=== PATIENT | male | born 1965 ===

== ENCOUNTER 2021-01-30 13:49 | Emergency (ER) | payer MEDICARE, MEDICAID, SELFPAY ==
--- NOTE | ~2021-01-30 | XR_ITS ---
EXAMINATION: XR KNEE, RIGHT CLINICAL INFORMATION: Fall COMPARISON: None TECHNIQUE: Four views of the right knee. FINDINGS: There is no visible acute fracture, dislocation or subluxation. There is small anterior superior patella and calcified and suprapatellar spur. No abnormal joint effusion or loose body seen. The soft tissues are normal XR/XR knee RT 4V IMPRESSION: Mild degenerative superior patellar spurring and anterior superior patellar enthesophyte. No visible acute fracture or loose body seen.
[2021-01-30 13:58] VITALS: BP 146/92; PULSE 91; RESP 18; TEMP 36.8; O2SAT 100; BMI 37.4
[2021-01-30 14:16] VITALS: BP 152/94; PULSE 88; RESP 16; O2SAT 95
--- NOTE | 2021-01-30 14:39 | ED_ITS ---
HPI - General Adult General Chief complaint: Extremity Injury, Lower Stated complaint: FALL Time Seen by Provider: 01/30/21 14:39 Source: patient Limitations: language barrier History of Present Illness HPI narrative: Patient complaining of right knee pain. Patient states he has longstanding history of chronic pain which he is on Percocet for. Patient describes the pain as aching and feels his joint is weak. Pain is 6/10 pain is located in the medial lateral aspects of the right knee. Patient states he fell onto his right knee after tripping. No other complaints at this time. Related Data Allergies Allergy/AdvReac Type Severity Reaction Status Date / Time No Known Allergies Allergy Unverified 06/13/20 18:24 [No Known Allergies*] none Allergy Unknown Uncoded 09/12/19 00:00 Review of Systems Review of Systems: Constitutional : No Weight loss, No Fever Cardiovascular : No Chest Pain, No SOB, No Dyspnea Respiratory : No Cough, No Sputum, No Wheezing Gastrointestinal : No Nausea, No Vomiting, No Diarrhea Musculoskeletal : Right knee pain Neuro : No Weakness, No Numbness, No Paresthesias Heme/Lymph: No Bruising, No Bleeding,No Lymphadenopathy PMFSH Past Medical History Attestation statement: The following information was validated with the patient. Medical History Diabetes Neuropathy Social History Social History Advance Directives: Yes Advance Directives Information Provided: Yes Advance Directives on File: No Physical Exam Vital Signs: Vital Signs: Last Vital Signs Temp 98.3 F 01/30/21 13:58 Pulse 88 01/30/21 14:16 Resp 16 01/30/21 14:16 BP 152/94 H 01/30/21 14:16 Pulse Ox 95 01/30/21 14:16 Body Mass Index 37.4 vital signs have been reviewed as normal and appeared to be correct. Blood pressure normal. Heart rate normal. Respiration rate normal. Temperature normal. Oxygen saturation normal. Appearance: Alert. Oriented X3. No acute distress. Head: Normal external exam. Normocephalic. Atraumatic. Eyes: PERRLA. EOMI. ENT: Pharynx normal. Neck: Soft full range of motion, no JVD CVS: Heart regular rate and rhythm no murmurs and rubs Respiratory: Breath sounds are clear to auscultation bilaterally. No accessory muscle use noted. Skin: Skin warm and dry. Normal skin color. Normal skin turgor. No rashes/lesions/lacerations noted. Extremities: Right knee positive medial and lateral joint line tenderness patellar has some slight tenderness. Negative drawer test no obvious joint laxity noted patient states he feels the knee is weak. Neuro: Oriented X 3. No motor deficit. No sensory deficit. Reflexes normal. Course Course Course Narrative: X-ray right knee after a fall. X-ray shows some degenerative disease around the patella. Patient's complaints are more consistent with question ligamentous injury although the joint does not appear ill very lax on exam will put patient in immobilizer and follow-up with orthopedics at this time. Medical Decision Making Imaging Data knee: Radiologist's impression: [address] [id number] ReportSigned Patient: Calvin ClarkMR#: [id number]: 1965Acct:[id number]/Sex: 55 / MADM Date: 01/30/21Loc: HO.EDAttending Dr: Ordering Physician: Generic ED Physician Date of Service: 01/30/21 Procedure(s): XR knee RT 4V Accession Number(s): [id number] cc: Generic ED Physician~ EXAMINATION: XR KNEE, RIGHT CLINICAL INFORMATION: Fall COMPARISON: None TECHNIQUE: Four views of the right knee. FINDINGS: There is no visible acute fracture, dislocation or subluxation. There is small anterior superior patella and calcified and suprapatellar spur. No abnormal joint effusion or loose body seen. The soft tissues are normal XR/XR knee RT 4V IMPRESSION: Mild degenerative superior patellar spurring and anterior superior patellar enthesophyte. No visible acute fracture or loose body seen. Dictated By:TAHIR CANTRELL MDSigned By:<Electronically signed by TAHIR CANTRELL MD in [place]>01/30/21 1413 DD/ 1405 Discharge Plan Discharge Clinical Impression: Knee sprain, Contusion of knee Patient Disposition: Home, Self-Care Instructions: Knee Sprain (ED) Additional Instructions: Follow-up with orthopedics as recommended rest ice elevation of that right knee. Continue your current medications at home for pain. Referrals: Jerson Shaikh MD [Physician] - 2 days
== END 2021-01-30 15:03 | disposition home or self-care (01) ==
PROVIDERS: Emergency Provider Emergency Medicine; PCP Internal Medicine Geriatric Medicine
DX: S83.91XA Sprain of unspecified site of right knee, initial encounter (principal); S80.01XA Contusion of right knee, initial encounter; M25.561 Pain in right knee; W01.0XXA Fall on same level from slipping, tripping and stumbling without subsequent striking against object, initial encounter; Y93.89 Activity, other specified; Y92.89 Other specified places as the place of occurrence of the external cause; Y99.8 Other external cause status; Z79.899 Other long term (current) drug therapy
CPT/HCPCS: 73564; 99283

== ENCOUNTER 2021-02-06 07:59 | Outpatient (REF) | payer MEDICARE, MEDICAID, SELFPAY | END 2021-02-06 08:00 | disposition home or self-care (01) | LOC: HO.HOSX 07:59 | PROVIDERS: Visit Provider Physician Assistant | DX: Z13.89 Encounter for screening for other disorder (principal) ==

== ENCOUNTER 2022-12-06 18:19 | Emergency (ER) | payer MEDICARE, MEDICAID, SELFPAY ==
--- NOTE | ~2022-12-06 | XR_ITS ---
Examination: XR lumbar spine 2-3V, XR hip RT w PEL1V, XR knee RT 4V Indication: Reason for Exam pain s/p fall Comparison: No pertinent prior studies are currently available for comparison. Technique: 3 views the lumbosacral spine, frontal view of the pelvis with coned frontal and frog-leg lateral views the right hip, 4 views of the right knee Findings: Lumbosacral spine: There are 5 nonrib-bearing lumbar-type vertebra. Bones are normal anatomic alignment with no acute fracture or dislocation. Mild sclerotic degenerative changes in the posterior elements of the lower lumbar spine. Unremarkable bowel gas pattern. Right pelvis: The lungs are normal anatomic alignment with no acute fracture or dislocation seen. Mildly elongated femoral head/neck junctions incidentally seen. Pelvic bones otherwise unremarkable. Unremarkable bowel gas pattern. Right knee: No significant joint effusion. Bones are normal anatomic alignment with no acute fracture or dislocation. No bony destructive lesions or periosteal reaction. XR/XR lumbar spine 2-3V Impression: Mild degenerative changes but no acute fracture or dislocation seen.
--- NOTE | ~2022-12-06 | XR_ITS ---
Examination: XR lumbar spine 2-3V, XR hip RT w PEL1V, XR knee RT 4V Indication: Reason for Exam pain s/p fall Comparison: No pertinent prior studies are currently available for comparison. Technique: 3 views the lumbosacral spine, frontal view of the pelvis with coned frontal and frog-leg lateral views the right hip, 4 views of the right knee Findings: Lumbosacral spine: There are 5 nonrib-bearing lumbar-type vertebra. Bones are normal anatomic alignment with no acute fracture or dislocation. Mild sclerotic degenerative changes in the posterior elements of the lower lumbar spine. Unremarkable bowel gas pattern. Right pelvis: The lungs are normal anatomic alignment with no acute fracture or dislocation seen. Mildly elongated femoral head/neck junctions incidentally seen. Pelvic bones otherwise unremarkable. Unremarkable bowel gas pattern. Right knee: No significant joint effusion. Bones are normal anatomic alignment with no acute fracture or dislocation. No bony destructive lesions or periosteal reaction. XR/XR knee RT 4V Impression: Mild degenerative changes but no acute fracture or dislocation seen.
--- NOTE | ~2022-12-06 | XR_ITS ---
Examination: XR lumbar spine 2-3V, XR hip RT w PEL1V, XR knee RT 4V Indication: Reason for Exam pain s/p fall Comparison: No pertinent prior studies are currently available for comparison. Technique: 3 views the lumbosacral spine, frontal view of the pelvis with coned frontal and frog-leg lateral views the right hip, 4 views of the right knee Findings: Lumbosacral spine: There are 5 nonrib-bearing lumbar-type vertebra. Bones are normal anatomic alignment with no acute fracture or dislocation. Mild sclerotic degenerative changes in the posterior elements of the lower lumbar spine. Unremarkable bowel gas pattern. Right pelvis: The lungs are normal anatomic alignment with no acute fracture or dislocation seen. Mildly elongated femoral head/neck junctions incidentally seen. Pelvic bones otherwise unremarkable. Unremarkable bowel gas pattern. Right knee: No significant joint effusion. Bones are normal anatomic alignment with no acute fracture or dislocation. No bony destructive lesions or periosteal reaction. XR/XR hip RT w PEL1V Impression: Mild degenerative changes but no acute fracture or dislocation seen.
[2022-12-06 18:22] VITALS: BP 138/74; PULSE 104; RESP 18; TEMP 36.1; O2SAT 96; BMI 34.6
--- NOTE | 2022-12-06 18:22 | ED_ITS ---
HPI - Extremity Problem General Chief complaint: Extremity Problem <CHERRI Green - Last Filed: 12/06/22 18:31> Stated complaint: R leg pain <CHERRI Green - Last Filed: 12/06/22 18:31> Time Seen by Provider: 12/06/22 19:01 <CHERRI Green Last Filed: 12/06/22 18:31> Source: patient <CHERRI Mathis Last Filed: 12/06/22 20:09> Mode of arrival: ambulatory <CHERRI Mathis Last Filed: 12/06/22 20:09> Limitations: no limitations <CHERRI Mathis Last Filed: 12/06/22 20:09> History of Present Illness HPI Narrative: This is a 57-year-old male presenting to the emergency department for atraumatic right-sided back pain that radiates down his right leg above the right knee x2 days. Patient tells me he has chronic back pain however this feels slightly different, he tells me he has an achy pain, he tells me pain is worse with movement better at rest. He tells me at time pain is intolerable. Patient uses a cane for comfort. Patient tells me that his right knee is also bothering him at times again worse with movement better at rest. Patient denies blunt trauma. Patient does tell me that a few weeks ago he did sustain a fall however after his fall he did not notice any injuries, he did not hit his head o r lose consciousness. Patient denies fevers, chills, chest pain, shortness of breath, nausea, vomiting, weakness, headache, vision changes, numbness or tingling. <CHERRI Mathis Last Filed: 12/06/22 20:09> Related Data Home medications: Previous Rx's Medication Instructions Recorded lidocaine 5 % topical patch 1 patch topical DAILY PRN pain #15 12/06/22 ea prednisone 20 mg tablet 20 mg PO DAILY 5 days #5 tabs 12/06/22 tramadol 50 mg tablet 50 mg PO BID PRN pain #10 tabs 12/06/22 <CHERRI Green Last Filed: 12/06/22 18:31> Allergies/Adverse reactions: Allergies Allergy/AdvReac Type Severity Reaction Status Date / Time No Known Allergies Allergy Unverified 06/13/20 18:24 [No Known Allergies*] none Allergy Unknown Uncoded 09/12/19 00:00 <CHERRI Green - Last Filed: 12/06/22 18:31> Review of Systems Review of Systems: Constitutional : No Weight loss, No Fever, No Chills, No Fatigue, No Malaise ENT/Mouth : No sore throat, No Rhinorrhea Eyes: No Eye Pain, No Swelling, No Redness Cardiovascular : No Chest Pain, No SOB, No Dyspnea on Exertion, No Orthopnea, No Edema, No Palpitations Respiratory : No Cough, No Sputum, No Wheezing Gastrointestinal : No Nausea, No Vomiting, No Diarrhea, No Constipation, No abdominal Pain, No Hematochezia, No Melena Genitourinary : No Dysuria, No Urinary Frequency, No Hematuria, Musculoskeletal : + joint pain, No Myalgias, No Joint Swelling Skin : No Skin Lesions, No rash Neuro : No Weakness, No Numbness, No Dizziness, No Headache Psych : No Anxiety/Panic, No Depression All other systems reviewed and are negative <CHERRI Mathis - Last Filed: 12/06/22 20:09> Yes all other systems are reviewed and are negative <CHERRI Mathis - Last Filed: 12/06/22 20:09> [facility] Past Medical History Attestation statement: The following information was validated with the patient. <CHERRI Mathis - Last Filed: 12/06/22 20:09> Source: old records reviewed and nursing notes reviewed <CHERRI Mathis - Last Filed: 12/06/22 20:09> Medical History: Medical History Diabetes Neuropathy <CHERRI Green - Last Filed: 12/06/22 18:31> Social History Social History: Social History Advance Directives: No Advance Directives Information Provided: Yes <CHERRI Green - Last Filed: 12/06/22 18:31> Physical Exam Vital Signs: Vital Signs: Last Vital Signs Temp 97.0 F 12/06/22 18:22 Pulse 104 H 12/06/22 18:22 Resp 18 12/06/22 18:22 BP 138/74 12/06/22 18:22 Pulse Ox 96 12/06/22 18:22 O2 Del Method 12/06/22 18:22 BMI result Body Mass Index 34.6 <CHERRI Green - Last Filed: 12/06/22 18:31> Vital Signs: Last Vital Signs Temp 97.0 F 12/06/22 18:22 Pulse 104 H 12/06/22 18:22 Resp 18 12/06/22 18:22 BP 138/74 12/06/22 18:22 Pulse Ox 96 12/06/22 18:22 O2 Del Method 12/06/22 18:22 BMI result Body Mass Index 34.6 vss <CHERRI Mathis - Last Filed: 12/06/22 20:09> Appearance: Alert.? Oriented X3.? No acute distress.? Head: Normocephalic, atraumatic, no step-offs or deformities Eyes: Pupils equal, round and reactive to light.? Neck: Normal inspection.? Neck supple.? CVS: Normal heart rate and rhythm.? Pulses normal.? Respiratory: No respiratory distress.? Breath sounds normal.? Abdomen: Soft and nontender.? Skin: Skin warm and dry.? Normal skin color.? Normal skin turgor.? Extremities: No lower extremity edema.? No calf ttp. 5/5 strength to bilateral upper and lower extremities Back: No midline tenderness in cervical, thoracic or lumbar region. There is tenderness to palpation to the right lumbar paraspinous muscles. Neuro: Oriented X 3.? No motor deficit.? No sensory deficit. CN 2-12 intact. Patient ambulating w/ steady gait normal coordination . No saddle paresthesias. <CHERRI Mathis - Last Filed: 12/06/22 20:09> Course Course Course Narrative: RME - 57 y/o male with history of chronic pain previously on chronic opiates and diabetes with neuropathy who presents to the ER for evaluation of burning right lower extremity pain that started 1.5 days ago. He also reports worsening right knee pain. Had multiple falls a few weeks ago. Has pain in the lumbar spine, right hip and right knee. Reports the previously prescribed gabapentin does not work. 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 Given his recent falls will get x-rays to r/o traumatic injuries. <CHERRI Green - Last Filed: 12/06/22 18:31> Reevaluation(s) Reevaluation #1: No acute findings on x-ray. No signs of fractures, dislocations. Patient ambulatory without difficulty in the department even before pain medicine. Tramadol for pain will be sent to the pharmacy. Will give Lidoderm patch as well and prednisone. Patient diabetic educated the prednisone can increase glucose levels, may have to adjust insulin levels. Patient verbalizes understanding. Educated patient on diagnosis and treatment plan, answered all question, patient verbalizes understanding. At this time patient will be discharged home, advised to return with new or worsening symptoms. Educated on worrisome signs and symptoms and when to return. At this time I feel comfortable discharge home. <CHERRI Mathis - Last Filed: 12/06/22 20:09> Time: 20:09 <CHERRI Mathis - Last Filed: 12/06/22 20:09> Medical Decision Making Medical Decision Making MDM Narrative: 1998 57-year-old male presents with right-sided back pain that radiates to right lower extremity just above the knee x2 days. Reports a fall 2 weeks ago however no recent falls. Denies saddle paresthesias, numbness, tingling, weakness, urinary/bowel incontinence/retention. Physical exam significant for tenderness to palpation to the right lumbar paraspinous muscles.? No motor deficit.? No sensory deficit. CN 2-12 intact. Patient ambulating w/ steady gait normal coordination . No saddle paresthesias. Likely acute on chronic back pain versus sciatica. I do not suspect cauda equina or epidural abscess. Unlikely compression fracture, no signs of cord compression or neurovascular compromise. Plan at this time imaging and will give tramadol for pain. <CHERRI Mathis - Last Filed: 12/06/22 20:09> Differential Diagnosis Differential Diagnoses: The differential diagnosis associated with the presentation includes <CHERRI Mathis Last Filed: 12/06/22 20:09> Likely acute on chronic back pain versus sciatica. I do not suspect cauda equina or epidural abscess. Unlikely compression fracture, no signs of cord compression or neurovascular compromise. <CHERRI Mathis - Last Filed: 12/06/22 20:09> Admission/Observation Consideration of admission/observation: Escalation of care including admission/observation considered <CHERRI Mathis - Last Filed: 12/06/22 20:09> Unlikely <CHERRI Mathis - Last Filed: 12/06/22 20:09> Lab Data MDM Lab Attestation statement: I reviewed the patient's lab results. <CHERRI Mathis - Last Filed: 12/06/22 20:09> Independent Interpretation I performed an independent interpretation of an: Plain X-Ray (Findings: Lumbosacral spine: There are 5 nonrib-bearing lumbar-type vertebra. Bones are normal anatomic alignment with no acute fracture or dislocation. Mild sclerotic degenerative changes in the posterior elements of the lower lumbar spine. Unremarkable bowel gas pattern. Right pelvis: The lungs a) <CHERRI Mathis - Last Filed: 12/06/22 20:09> Radiology Impression Discussion of test interpretation with radiology: I have reviewed the radiologist's reading. <CHERRI Mathis - Last Filed: 12/06/22 20:09> Core Measures AMI core measures followed: Yes <CHERRI Mathis - Last Filed: 12/06/22 20:09> Measure exclusions: not indicated <CHERRI Mathis - Last Filed: 12/06/22 20:09> Discharge Plan Discharge Clinical Impression: Sciatica, Lumbar paraspinal muscle spasm <CHERRI Green - Last Filed: 12/06/22 18:31> Patient Disposition: Home, Self-Care <CHERRI Green - Last Filed: 12/06/22 18:31> Instructions: Sciatica (ED), Back Pain (ED) <CHERRI Green - Last Filed: 12/06/22 18:31> Additional Instructions: Take your medications as prescribed. If you were prescribed antibiotics today, it is important that you take your medication to their entirety, do not skip any doses, do not finish them early. Follow-up with your primary care provider this week. Follow-up with [facility] Return to the emergency department with new or worsening symptoms. Such as fevers, chills, chest pain, shortness of breath, nausea, vomiting, dizziness, headache, vision changes, lethargy In case of emergency call 911 I did educate you that prednisone can increase blood glucose levels. Please adjust as necessary. A narcotic has been sent to your pharmacy please take this as prescribed. Do no t take more than the prescribed dose. Narcotic medications can cause addiction. Please do not mix them with alcohol. Do not take them while driving or operating machinery. Do not take them with any other narcotics. Do not share them with friends or family. They can cause constipation. Take them only for severe pain. XR/XR hip RT w PEL1V Impression: Mild degenerative changes but no acute fracture or dislocation seen. XR/XR knee RT 4V Impression: Mild degenerative changes but no acute fracture or dislocation seen. ?XR/XR lumbar spine 2-3V Impression: Mild degenerative changes but no acute fracture or dislocation seen. Findings: Lumbosacral spine: There are 5 nonrib-bearing lumbar-type vertebra. Bones are normal anatomic alignment with no acute fracture or dislocation. Mild sclerotic degenerative changes in the posterior elements of the lower lumbar spine. Unremarkable bowel gas pattern. Right pelvis: The lungs are normal anatomic alignment with no acute fracture or dislocation seen. Mildly elongated femoral head/neck junctions incidentally seen. Pelvic bones otherwise unremarkable. Unremarkable bowel gas pattern. Right knee: No significant joint effusion. Bones are normal anatomic alignment with no acute fracture or dislocation. No bony destructive lesions or periosteal reaction. <CHERRI Green - Last Filed: 12/06/22 18:31> Prescriptions: New tramadol 50 mg tablet 50 mg PO BID PRN (Reason: pain) Qty: 10 0RF prednisone 20 mg tablet 20 mg PO DAILY 5 Days Qty: 5 0RF lidocaine 5 % adhesive patch,medicated 1 patch topical DAILY PRN (Reason: pain) Qty: 15 0RF Rx Instructions: leave on most painful area for up to 12 hrs <CHERRI Green - Last Filed: 12/06/22 18:31> Referrals: [facility] [Provider Group] - 2 days Name,MD Paxton [Primary Care Provider] - 2 days <CHERRI Green - Last Filed: 12/06/22 18:31>
[2022-12-06] MEDS: Lidocaine 4 % Patch ADH..PATCH 1 PATCH TRANSDERMA (20:17)
[2022-12-06] MEDS: traMADoL HCL 50 MG TABLET PO (20:18)
== END 2022-12-06 20:29 | disposition home or self-care (01) ==
PROVIDERS: Emergency Provider Emergency Medicine; PCP Internal Medicine Geriatric Medicine
DX: M54.41 Lumbago with sciatica, right side (principal); M79.604 Pain in right leg; R10.2 Pelvic and perineal pain; Z79.899 Other long term (current) drug therapy
CPT/HCPCS: 72100; 73502; 73564; 99283

== ENCOUNTER 2023-02-11 15:13 | Emergency (ER) | payer MEDICARE, MEDICAID, SELFPAY | END 2023-02-11 15:49 | disposition left against medical advice (07) | LOC: HO.ED 15:46 | PROVIDERS: Emergency Provider Emergency Medicine | DX: K08.89 Other specified disorders of teeth and supporting structures (principal) ==

== ENCOUNTER 2023-02-11 15:55 | Emergency (ER) | payer MEDICARE, MEDICAID, SELFPAY ==
[2023-02-11 16:05] VITALS: BP 165/88; PULSE 105; RESP 20; TEMP 36.8; O2SAT 97; BMI 34.0
--- NOTE | 2023-02-11 16:05 | ED_ITS ---
HPI - Dental/Oral General Chief complaint: Dental/Oral <CHERRI Mathis - Last Filed: 02/11/23 16:06> Stated complaint: Tooth pain <CHERRI Mathis - Last Filed: 02/11/23 16:06> Time Seen by Provider: 02/11/23 17:52 <CHERRI Mathis - Last Filed: 02/11/23 16:06> Source: patient, RN notes reviewed and old records reviewed <Anthony Hodge - Last Filed: 02/11/23 18:09> Mode of arrival: ambulatory <Anthony Hodge - Last Filed: 02/11/23 18:09> Limitations: no limitations <Anthony Hodge - Last Filed: 02/11/23 18:09> History of Present Illness HPI Narrative: A 57-year-old male presents for evaluation of right facial pain. Patient reports that he has had on off pain to the right side of his face and teeth for the last few weeks. He reports he went to urgent care to be in the month and was given amoxicillin. ? Patient reports that he finished antibiotics and his pain improved but for last 2 days his pain returned and ?is worse now. ? His pain does not radiate He reports that he is due to see a dentist on February 16 Denies any fevers or chills He denies any recent dental injuries but does have a broken tooth in the right lower molar area His pain is 10/10 He was given Toradol in triage he reports this improved his pain <Anthony Hodge - Last Filed: 02/11/23 18:09> Related Data Home medications: Previous Rx's Medication Instructions Recorded lidocaine 5 % topical patch 1 patch topical DAILY PRN pain #15 12/06/22 ea prednisone 20 mg tablet 20 mg PO DAILY 5 days #5 tabs 12/06/22 tramadol 50 mg tablet 50 mg PO BID PRN pain #10 tabs 12/06/22 clindamycin HCl 300 mg capsule 600 mg PO TID #21 caps 02/11/23 oxycodone-acetaminophen 5 mg-325 1 tab PO TID PRN severe pain 02/11/23 mg tablet (Percocet) (scale score 7-10) #15 tabs <CHERRI Mathis - Last Filed: 02/11/23 16:06> Allergies/adverse reactions: Allergies Allergy/AdvReac Type Severity Reaction Status Date / Time No Known Allergies Allergy Unverified 06/13/20 18:24 [No Known Allergies*] none Allergy Unknown Uncoded 09/12/19 00:00 <CHERRI Mathis - Last Filed: 02/11/23 16:06> Review of Systems Constitutional: Constitutional: Reports as per HPI, Denies fatigue and Denies headache(s) <Anthony Hodge - Last Filed: 02/11/23 18:09> ENT: Denies headache(s) and Reports odynophagia <Anthony Hodge - Last Filed: 02/11/23 18:09> Gastrointestinal: Gastrointestinal: Reports odynophagia <Anthony Hodge - Last Filed: 02/11/23 18:09> Neurologic: Denies headache(s) <Anthony Hodge - Last Filed: 02/11/23 18:09> Endocrine: Endocrine: Denies fatigue <Anthony Hodge - Last Filed: 02/11/23 18:09> [facility] Past Medical History Medical History: Medical History Diabetes Neuropathy <CHERRI Mathis - Last Filed: 02/11/23 16:06> Social History Social History: Social History Advance Directives: No Advance Directives Information Provided: No <CHERRI Mathis - Last Filed: 02/11/23 16:06> Physical Exam Vital Signs: Vital Signs: Last Vital Signs Temp 98.1 F 02/11/23 17:22 Pulse 93 02/11/23 17:22 Resp 18 02/11/23 17:22 BP 133/77 02/11/23 17:22 Pulse Ox 96 02/11/23 17:22 O2 Del Method Room Air 02/11/23 17:22 BMI result Body Mass Index 34.0 <CHERRI Mathis Last Filed: 02/11/23 16:06> Vital Signs: Last Vital Signs Temp 98.1 F 02/11/23 17:22 Pulse 93 02/11/23 17:22 Resp 18 02/11/23 17:22 BP 133/77 02/11/23 17:22 Pulse Ox 96 02/11/23 17:22 O2 Del Method Room Air 02/11/23 17:22 BMI result Body Mass Index 34.0 < - Last Filed: 02/11/23 18:09> Const: General: healthy appearing, comfortable, no acute distress, alert and awake < - Last Filed: 02/11/23 18:09> Nutritional Appearance: well nourished < - Last Filed: 02/11/23 18:09> Orientation/consciousness: patient oriented x3 < Last Filed: 02/11/23 18:09> HEENT: Other: Old fractured to the right lower molar. Minimal erythema, no significant edema, no dental abscess. < - Last Filed: 02/11/23 18:09> Head: Yes normocephalic and Yes atraumatic < - Last Filed: 02/11/23 18:09> Ears: external ears normal, TM's normal bilaterally and EAC's normal < - Last Filed: 02/11/23 18:09> Teeth and gingiva: abnormal dentition, poor dentition and other < - Last Filed: 02/11/23 18:09> Throat: Yes posterior oropharynx normal < - Last Filed: 02/11/23 18:09> Neck: Neck: Yes full ROM < Last Filed: 02/11/23 18:09> Resp: Effort & Inspection: normal respiratory effort, able to speak in complete sentences and not labored < - Last Filed: 02/11/23 18:09> Skin: General skin exam: elasticity normal < - Last Filed: 02/11/23 18:09> Neuro: General: patient oriented x3 < - Last Filed: 02/11/23 18:09> Cranial nerves: Yes Bilaterally intact EOM present <Anthony Hodge - Last Filed: 02/11/23 18:09> Cognition (Neuro): normal cognition <Anthony Hodge - Last Filed: 02/11/23 18:09> Course Course Course Narrative: This is an RME: Additional HPI, ROS, PE not included below will be deferred to primary provider. 57-year-old male presents with pain to right upper and right lower teeth, patient reports poor dentition, scheduled to see the dentist on the of this month, was seen at urgent care and was prescribed antibiotics however despite this he explains to me that his pain is getting worse. He is worried because he is unable to tolerate the pain. Denies fevers, chills. No recent dental work . Patient is stable to go back in the waiting room can be seen in minor her <CHERRI Mathis - Last Filed: 02/11/23 16:06> Medications Administered Discontinued Medications Generic Name Dose Route Start Last Admin Trade Name Freq PRN Reason Stop Dose Admin Ketorolac Tromethamine 30 mg 02/11/23 16:06 02/11/23 17:01 Ketorolac Tromethamine 15 Mg/Ml Vial IM 02/11/23 16:07 30 mg ONCE ONE Administration <CHERRI Mathis - Last Filed: 02/11/23 16:06> Medications Administered Discontinued Medications Generic Name Dose Route Start Last Admin Trade Name Freq PRN Reason Stop Dose Admin Ketorolac Tromethamine 30 mg 02/11/23 16:06 02/11/23 17:01 Ketorolac Tromethamine 15 Mg/Ml Vial IM 02/11/23 16:07 30 mg ONCE ONE Administration <Anthony Hodge - Last Filed: 02/11/23 18:09> Medical Decision Making Medical Decision Making MDM Narrative: Patient has not poor dentition with a old dental fracture minimal gingival edema. Will treat the patient's pain and discharged with clindamycin to ensure that he has no worsening infection when he sees his dentist to have definitive work done. Currently there is no evidence of dental abscess <Anthony Hodge - Last Filed: 02/11/23 18:09> Differential Diagnosis Facial pain Dental pain Dental caries Dental trauma <Anthony Hodge - Last Filed: 02/11/23 18:09> Discharge Plan Discharge Clinical Impression: Right facial pain, Tooth ache <CHERRI Mathis Last Filed: 02/11/23 16:06> Patient Disposition: Home, Self-Care <CHERRI Mathis Last Filed: 02/11/23 16:06> Instructions: Toothache (ED) <CHERRI Mathis Last Filed: 02/11/23 16:06> Additional Instructions: Follow-up with your dentist as planned. Take clindamycin 3 times daily for the next 5 days Use ibuprofen as needed for pain. May use Percocet for more severe or breakthrough pain This may make you sleepy, did not drink alcohol or drive after taking it Follow-up with your primary doctor <CHERRI Mathis - Last Filed: 02/11/23 16:06> Prescriptions: New clindamycin HCl 300 mg capsule 600 mg PO TID Qty: 21 0RF oxycodone-acetaminophen [Percocet] 5-325 mg tablet 1 tab PO TID PRN (Reason: severe pain (scale score 7-10)) Qty: 15 0RF Rx Instructions: Partial Fill upon patient request. No Action tramadol 50 mg tablet 50 mg PO BID PRN (Reason: pain) Qty: 10 0RF prednisone 20 mg tablet 20 mg PO DAILY 5 Days Qty: 5 0RF lidocaine 5 % adhesive patch,medicated 1 patch topical DAILY PRN (Reason: pain) Qty: 15 0RF Rx Instructions: leave on most painful area for up to 12 hrs <CHERRI Mathis Last Filed: 02/11/23 16:06>
[2023-02-11] MEDS: Ketorolac Tromethamine 15 MG/ML VIAL 30 MG IM (17:01)
[2023-02-11 17:22] VITALS: BP 133/77; PULSE 93; RESP 18; TEMP 36.7; O2SAT 96
== END 2023-02-11 18:32 | disposition home or self-care (01) ==
PROVIDERS: Emergency Provider Internal Medicine
DX: K08.89 Other specified disorders of teeth and supporting structures (principal); R51.9 Headache, unspecified
CPT/HCPCS: 96372; 99283; 99284; J1885

== ENCOUNTER 2023-03-09 13:29 | Emergency (ER) | payer MEDICARE, MEDICAID, SELFPAY ==
--- NOTE | 2023-03-09 14:33 | ED_ITS ---
HPI - Dental/Oral General Chief complaint: Dental/Oral Stated complaint: Dental Pain Time Seen by Provider: 03/09/23 14:39 Source: patient, RN notes reviewed and old records reviewed Mode of arrival: ambulatory History of Present Illness HPI Narrative: 57-year-old male w/no sig PMHx presenting to the ED c/o R upper and lower dental pain x2 days. Admits saw dentist last week was prescribed Amoxicillin which he finished 2 days ago without relief. States scheduled for additional appointment on 03/18 for dental extraction. Denies recent dental procedures, fever/chills, inability to swallow, drainage from area MD Complaint: tooth pain Related Data Previous Rx's Medication Instructions Recorded lidocaine 5 % topical patch 1 patch topical DAILY PRN pain #15 12/06/22 ea prednisone 20 mg tablet 20 mg PO DAILY 5 days #5 tabs 12/06/22 tramadol 50 mg tablet 50 mg PO BID PRN pain #10 tabs 12/06/22 clindamycin HCl 300 mg capsule 600 mg PO TID #21 caps 02/11/23 oxycodone-acetaminophen 5 mg-325 1 tab PO TID PRN severe pain 02/11/23 mg tablet (Percocet) (scale score 7-10) #15 tabs oxycodone-acetaminophen 5 mg-325 1 tab PO TID PRN severe pain 23 mg tablet (Percocet) (scale score 7-10) #15 tabs clindamycin HCl 150 mg capsule 450 mg PO Q8H 7 days #63 caps 03/09/23 oxycodone-acetaminophen 5 mg-325 1 tab PO Q8H PRN pain (scale score 03/09/23 mg tablet (Percocet) 7-10) 3 days #9 tabs Allergies Allergy/AdvReac Type Severity Reaction Status Date / Time No Known Allergies Allergy Verified 03/09/23 14:34 [No Known Allergies*] Review of Systems Review of Systems: Constitutional: No Fever, No Chills ENT/Mouth: +dental pain, No Ear Pain, No Nasal Congestion, No Sinus Pain, No Hoarseness, No sore throat, No Rhinorrhea, No Swallowing Difficulty Cardiovascular: No Chest Pain, No SOB Respiratory: No Cough, No Sputum Gastrointestinal: No Nausea, No Vomiting, No Abdominal pain Musculoskeletal: No joint pain, No Myalgias, No Joint Swelling Skin: No Skin Lesions, No rash Neuro: No Weakness Yes all other systems are reviewed and are negative Constitutional: Constitutional: Reports as per [facility] Past Medical History Attestation statement: The following information was validated with the patient. Source: old records reviewed Medical History Diabetes Neuropathy Physical Exam Vital Signs: Vital Signs: Last Vital Signs Temp 97.3 F 03/09/23 14:34 Pulse 95 03/09/23 14:34 Resp 18 03/09/23 14:34 BP 156/98 H 03/09/23 14:34 Pulse Ox 98 03/09/23 14:34 O2 Del Method Room Air 03/09/23 14:34 BMI result Body Mass Index 33.2 Const: General: cooperative, healthy appearing and no acute distress Orientation/consciousness: patient oriented x3 Limitations: no limitations HEENT: Other: Poor dentition. Mild swelling noted to right internal cheek, nontender. Multiple broken teeth. + right upper gingival tenderness. No gingival erythema, pointing, fluctuance or induration. Talking in complete sentences, no drooling, handling secretions. No facial swelling Head: Yes normal to inspection and Yes atraumatic Ears: hearing grossly normal bilaterally General nose exam: Normal external nose present Face and sinus: Yes normal facial exam Eyes: General: appearance normal, both eyes and all related structures EOM: EOMs intact bilaterally Neck: Neck: Yes normal visual inspection and Yes no meningeal signs Resp: Effort & Inspection: normal respiratory effort and no respiratory distress Cardio: Rate: regular rate Skin: Rashes: no rashes Wounds: no wounds Neuro: General: patient oriented x3, tone normal and no meningeal signs Gait exam (Neuro): Normal gait present Extrem: General: Yes normal to inspection Medical Decision Making Medical Decision Making MDM Narrative: 57-year-old male w/no sig PMHx presenting to the ED c/o R upper and lower dental pain x2 days. Admits saw dentist last week was prescribed Amoxicillin which he finished 2 days ago without relief. On exam vital signs stable, NAD, nontoxic appearing physical exam as noted above. No appreciable focal fluctuance/induration. Talking in complete sentences, no respiratory distress. No facial swelling. Concern for continued dental infection/poor dentition. Plan: P.o. antibiotics, pain medication, dentistry follow-up Results discussed with patient including worrisome signs and symptoms and strict return precautions, and when to return to the emergency department. They verbalized understanding and feel safe for discharge at this time. Differential Diagnosis Differential Diagnoses: The differential diagnosis associated with the presentation includes As above External Record Review External record reviewed: Inpatient record, Office record, Outpatient record, Prior outpatient labs, Prior outpatient radiology, Primary care record and Outside ED record Tests considered The following testing was considered but not selected: As above Discharge Plan Discharge Clinical Impression: Pain, dental, Dental caries Patient Disposition: Home, Self-Care Instructions: Toothache (ED) Additional Instructions: Clindamycin is an antibiotic please take as prescribed In addition Percocet is an opiate pain medication, take only when pain is severe for the next 3 days Be aware Percocet has Tylenol mixed in do not exceed 4 g of Tylenol in 1 day. In addition you can take Motrin. Call your dentist for close follow-up Prescriptions: New clindamycin HCl 150 mg capsule 450 mg PO Q8H 7 Days Qty: 63 0RF oxycodone-acetaminophen [Percocet] 5-325 mg tablet 1 tab PO Q8H PRN (Reason: pain (scale score 7-10)) 3 Days Qty: 9 0RF Rx Instructions: Partial Fill upon patient request. No Action tramadol 50 mg tablet 50 mg PO BID PRN (Reason: pain) Qty: 10 0RF prednisone 20 mg tablet 20 mg PO DAILY 5 Days Qty: 5 0RF lidocaine 5 % adhesive patch,medicated 1 patch topical DAILY PRN (Reason: pain) Qty: 15 0RF Rx Instructions: leave on most painful area for up to 12 hrs clindamycin HCl 300 mg capsule 600 mg PO TID Qty: 21 0RF oxycodone-acetaminophen [Percocet] 5-325 mg tablet 1 tab PO TID PRN (Reason: severe pain (scale score 7-10)) Qty: 15 0RF Rx Instructions: Partial Fill upon patient request. oxycodone-acetaminophen [Percocet] 5-325 mg tablet 1 tab PO TID PRN (Reason: severe pain (scale score 7-10)) Qty: 15 0RF Rx Instructions: Partial Fill upon patient request. Referrals: Jurgen Hagan [Dentist] - Mekhi Baez DMD [Dentist] - Toy Garcia, DMD [Dentist] - Rose Roblero, KRISTI [Dentist] -
[2023-03-09 14:34] VITALS: BP 156/98; PULSE 95; RESP 18; TEMP 36.3; O2SAT 98; BMI 33.2
== END 2023-03-09 14:57 | disposition home or self-care (01) ==
PROVIDERS: Emergency Provider Emergency Medicine
DX: K02.9 Dental caries, unspecified (principal); K08.89 Other specified disorders of teeth and supporting structures; Z79.899 Other long term (current) drug therapy
CPT/HCPCS: 99282; 99283

== ENCOUNTER 2023-04-05 09:05 | Outpatient (REF) | payer MEDICARE, MEDICAID, SELFPAY ==
--- NOTE | ~2023-04-05 | XR_ITS ---
EXAMINATION: XR WRIST, RIGHT CLINICAL INFORMATION: Pain, swelling COMPARISON: None available. TECHNIQUE: PA, lateral, and oblique views of the right wrist. FINDINGS: The bones and soft tissues are normal. No fracture. Alignment is anatomic with normal joint spaces. No erosions or abnormal soft tissue calcifications. XR/XR wrist RT 2V IMPRESSION: Normal right wrist.
== END 2023-04-05 09:06 | disposition home or self-care (01) ==
LOC: HO.LAB 09:05
PROVIDERS: PCP Internal Medicine Geriatric Medicine; Visit Provider Internal Medicine Geriatric Medicine
DX: M25.531 Pain in right wrist (principal); R60.0 Localized edema
CPT/HCPCS: 36415; 73100; 85652; 86431

== ENCOUNTER 2023-04-25 09:53 | Emergency (ER) | payer MEDICARE, MEDICAID, SELFPAY ==
[2023-04-25 10:01] VITALS: BP 138/80; PULSE 108; RESP 18; TEMP 36.1; O2SAT 96; BMI 33.2
--- NOTE | 2023-04-25 11:27 | PC.NURSE ---
oob to bathroom- no respriatory distress.
--- NOTE | 2023-04-25 12:29 | ED.EXTPRO ---
HPI - Extremity Problem General Chief complaint: Extremity Injury, Upper Stated complaint: Arthritis R wrist Time Seen by Provider: 04/25/23 10:17 Source: patient and RN notes reviewed Mode of arrival: ambulatory Limitations: no limitations History of Present Illness HPI Narrative: This is a 57-year-old male, with a past medical history of diabetes, presenting to the emergency department for evaluation of right wrist pain and swelling x1 month. Patient was seen by his primary care physician where they ordered an x-ray but he has not heard about the results. No trauma, injury, heavy lifting or falls. He has been irregularly taking ibuprofen as well as irregularly wearing a wrist splint which has provided him with minimal relief. Admits to having radiating pain into his fingers. Denies any fevers or chills. No other complaints or concerns at this time. MD Complaint: extremity pain and extremity swelling Onset (ago): week(s) Pain Consistency: constant Location: right and upper extremity Quality: aching Radiation: none Relieving factors: nothing Exacerbating factors: range of motion Associated symptoms: denies other symptoms Related Data Previous Rx's Medication Instructions Recorded lidocaine 5 % topical patch 1 patch topical DAILY PRN pain #15 12/06/22 ea prednisone 20 mg tablet 20 mg PO DAILY 5 days #5 tabs 12/06/22 tramadol 50 mg tablet 50 mg PO BID PRN pain #10 tabs 12/06/22 clindamycin HCl 300 mg capsule 600 mg PO TID #21 caps 02/11/23 oxycodone-acetaminophen 5 mg-325 1 tab PO TID PRN severe pain 02/11/23 mg tablet (Percocet) (scale score 7-10) #15 tabs oxycodone-acetaminophen 5 mg-325 1 tab PO TID PRN severe pain 02/11/23 mg tablet (Percocet) (scale score 7-10) #15 tabs clindamycin HCl 150 mg capsule 450 mg PO Q8H 7 days #63 caps 03/09/23 oxycodone-acetaminophen 5 mg-325 1 tab PO Q8H PRN pain (scale score 03/09/23 mg tablet (Percocet) 7-10) 3 days #9 tabs ibuprofen 600 mg tablet 600 mg PO Q6H PRN pain #45 tabs 04/25/23 Allergies Allergy/AdvReac Type Severity Reaction Status Date / Time No Known Allergies Allergy Verified 04/25/23 10:05 [No Known Allergies*] Review of Systems Review of Systems: Yes all other systems are reviewed and are negative [facility] Past Medical History Medical History (Updated 04/26/23 @ 00:14 by Tosin Martin) Anxiety Depression Diabetes Hypertension Neuropathy Social History Social History Smoked in Last 30 Days: No Use of substances other than those prescribed or required for medical reasons: No Advance Directives: No Advance Directives Information Provided: Yes Physical Exam Vital Signs: Vital Signs: Last Vital Signs Temp 96.9 F 04/25/23 10:01 Pulse 108 H 04/25/23 10:01 Resp 18 04/25/23 10:01 BP 138/80 04/25/23 10:01 Pulse Ox 96 04/25/23 10:01 O2 Del Method Room Air 04/25/23 10:01 BMI result Body Mass Index 33.2 Const: Other: General: Awake, alert, and oriented X3. No acute distress. HEENT: Normal inspection CVS: Normal heart rate and rhythm. Pulses normal. Respiratory: No respiratory distress Skin: Warm, dry, no rashes noted to exposed skin. Normal skin color. Normal skin turgor. Extremities: Right wrist with moderate edema noted diffusely throughout the right wrist. Tenderness to palpation diffusely. No snuffbox tenderness. Distal radius pulse is 2+. Right wrist and arm with limited range of motion secondary to pain. Distal sensation circulation intact. No overlying erythema or warmth noted. +Tinel's sign. Neuro: Oriented X 3. No motor deficit. No sensory deficit. Medical Decision Making Medical Decision Making MDM Narrative: This is a 57-year-old male presenting to the emergency department for evaluation of right wrist pain and swelling x1 month. Patient reports no trauma or injury to his right wrist. He was seen by his primary care physician who ordered an x-ray however does not know the results of this x-ray. I am able to access this record at odd there is no bony abnormality seen on the x-ray. Patient has had no trauma or injury to his wrist since this x-ray. Patient has a positive Tinel's sign, exam findings consistent with carpal tunnel syndrome will treat conservatively with wrist splint, ibuprofen, and given referral to Orthopedics. Patient given return precautions for any new or worsening symptoms occur. Patient stable for discharge Differential Diagnosis Differential Diagnoses: The differential diagnosis associated with the presentation includes Right wrist carpal tunnel, sprain, strain, contusion, septic arthritis, gouty arthritis External Record Review External record reviewed: Prior outpatient radiology Review of right wrist xray from 04/05/2023 unremarkable. Prescription Management I considered prescription management with: Pain Medication Chronic Conditions Patient?s care impacted by: Diabetes Discharge Plan Discharge Clinical Impression: Acute carpal tunnel syndrome Patient Disposition: Home, Self-Care Instructions: Wrist Injury (ED) Additional Instructions: Your symptoms are consistent with carpal tunnel syndrome. Please rest, ice, use wrist splint, and take ibuprofen as directed. Please follow-up with your primary care physician. I am also giving your referral to Orthopedics. Call to make appointment. If any new or worsening symptoms occur including but not limited to decreased range of motion of your right wrist, redness, fevers, increased swelling to right wrist, please return for re-evaluation. Prescriptions: New ibuprofen 600 mg tablet 600 mg PO Q6H PRN (Reason: pain) Qty: 45 0RF No Action tramadol 50 mg tablet 50 mg PO BID PRN (Reason: pain) Qty: 10 0RF prednisone 20 mg tablet 20 mg PO DAILY 5 Days Qty: 5 0RF lidocaine 5 % adhesive patch,medicated 1 patch topical DAILY PRN (Reason: pain) Qty: 15 0RF Rx Instructions: leave on most painful area for up to 12 hrs clindamycin HCl 150 mg capsule 450 mg PO Q8H 7 Days Qty: 63 0RF oxycodone-acetaminophen [Percocet] 5-325 mg tablet 1 tab PO Q8H PRN (Reason: pain (scale score 7-10)) 3 Days Qty: 9 0RF Rx Instructions: Partial Fill upon patient request. clindamycin HCl 300 mg capsule 600 mg PO TID Qty: 21 0RF oxycodone-acetaminophen [Percocet] 5-325 mg tablet 1 tab PO TID PRN (Reason: severe pain (scale score 7-10)) Qty: 15 0RF Rx Instructions: Partial Fill upon patient request. oxycodone-acetaminophen [Percocet] 5-325 mg tablet 1 tab PO TID PRN (Reason: severe pain (scale score 7-10)) Qty: 15 0RF Rx Instructions: Partial Fill upon patient request. Referrals: [facility] [Provider Group] Interventions: ED Discharge Assessment Last Done: 04/25/23 12:39 Discharge Date/Time: 04/25/23 12:40
== END 2023-04-25 12:40 | disposition home or self-care (01) ==
PROVIDERS: Emergency Provider Student in an Organized Health Care Education/Training Program; PCP Internal Medicine Geriatric Medicine
DX: G56.01 Carpal tunnel syndrome, right upper limb (principal); Z79.899 Other long term (current) drug therapy
CPT/HCPCS: 29125; 99284

== ENCOUNTER 2023-05-23 10:35 | Emergency (ER) | payer MEDICARE, MEDICAID, SELFPAY ==
[2023-05-23 10:42] VITALS: BP 145/78; PULSE 87; RESP 18; TEMP 36.7; O2SAT 98; BMI 32.9
--- NOTE | 2023-05-23 11:18 | ED_ITS ---
HPI - Extremity Problem General Chief complaint: Extremity Injury, Upper Stated complaint: R wrist pain Time Seen by Provider: 05/23/23 10:53 Source: patient Mode of arrival: ambulatory Limitations: no limitations History of Present Illness HPI Narrative: Patient is a 57-year-old [id number] male presenting to the emergency department with complaint of ongoing right wrist pain for the past several months. Denies any new injury or trauma. Seen here on 04/25 and diagnosed with carpal tunnel syndrome. Patient reports he has been wearing a brace to his right wrist. Has also been using a squeeze ball throughout the day. He states that he discontinued his naproxen as he felt it was not helpful for his pain. He has an upcoming appointment with his primary care provider in May. States that he has not contacted Orthopedics. MD Complaint: extremity pain Onset (ago): month(s) Pain Consistency: constant Location: right Quality: burning, aching and constant Radiation: proximal Relieving factors: nothing Exacerbating factors: palpation Associated symptoms: denies other symptoms Related Data Previous Rx's Medication Instructions Recorded lidocaine 5 % topical patch 1 patch topical DAILY PRN pain #15 12/06/22 ea prednisone 20 mg tablet 20 mg PO DAILY 5 days #5 tabs 12/06/22 tramadol 50 mg tablet 50 mg PO BID PRN pain #10 tabs 12/06/22 clindamycin HCl 300 mg capsule 600 mg PO TID #21 caps 02/11/23 oxycodone-acetaminophen 5 mg-325 1 tab PO TID PRN severe pain 02/11/23 mg tablet (Percocet) (scale score 7-10) #15 tabs oxycodone-acetaminophen 5 mg-325 1 tab PO TID PRN severe pain 02/11/23 mg tablet (Percocet) (scale score 7-10) #15 tabs clindamycin HCl 150 mg capsule 450 mg PO Q8H 7 days #63 caps 03/09/23 oxycodone-acetaminophen 5 mg-325 1 tab PO Q8H PRN pain (scale score 03/09/23 mg tablet (Percocet) 7-10) 3 days #9 tabs ibuprofen 600 mg tablet 600 mg PO Q6H PRN pain #45 tabs 04/25/23 prednisone 20 mg tablet 40 mg PO DAILY #10 tabs 05/23/23 Allergies Allergy/AdvReac Type Severity Reaction Status Date / Time No Known Allergies Allergy Verified 05/23/23 10:46 [No Known Allergies*] Review of Systems Review of Systems: As per HPI. Yes all other systems are reviewed and are negative Constitutional: Constitutional: Reports as per HPI [facility] Past Medical History Medical History (Updated 05/23/23 @ 11:41 by Danielle Adkins NP) Anxiety Depression Diabetes Hypertension Neuropathy Social History Social History Advance Directives: No Advance Directives Information Provided: No Physical Exam Vital Signs: Vital Signs: Last Vital Signs Temp 98.0 F 05/23/23 10:42 Pulse 87 05/23/23 10:42 Resp 18 05/23/23 10:42 BP 145/78 H 05/23/23 10:42 Pulse Ox 98 05/23/23 10:42 O2 Del Method Room Air 05/23/23 10:42 BMI result Body Mass Index 32.9 Vital signs have been reviewed and appear to be correct. Blood pressure mildly elevated. Heart rate normal. Respiratory rate normal. Temperature normal. O xygen saturation normal. Const: General: cooperative, healthy appearing and no acute distress Orientation/consciousness: oriented to person, oriented to place, oriented to time and patient oriented x3 Limitations: no limitations HEENT: Head: Yes normocephalic and Yes atraumatic Ears: external ears normal General nose exam: Normal external nose present Face and sinus: Yes face symmetric Mouth: oropharynx normal and moist mucous membranes Throat: Yes uvula midline Eyes: Pupils: Equal, round and reactive pupils present Neck: Neck: Yes normal visual inspection and Yes supple Resp: Effort & Inspection: normal respiratory effort and able to speak in complete sentences Auscultation: clear to auscultation bilaterally Cardio: Rate: regular rate Rhythm: regular rhythm Heart sounds: S1 normal heart sound present and S2 normal heart sound present GI: Palpation (GI): Soft to palpation and nontender Auscultation: n ormoactive bowel sounds : General: Yes no CVA tenderness Back/Spine/Pelvis: Back: no CVA tenderness Skin: General skin exam: elasticity normal and turgor normal Neuro: General: oriented to person, oriented to place, oriented to time, patient oriented x3, moves all extremities, no focal motor deficits, CN's II-XI intact bilaterally and deep tendon reflexes 2+ bilaterally Cranial nerves: Yes Equal, round and reactive pupils present Cognition (Neuro): normal cognition Extrem: General: Yes full ROM, Yes normal exam except as noted, Yes no pedal edema and Yes no calf tenderness Right upper extremity: wrist Details: normal to inspection, tenderness (+ Tinel, + Phalen) Location: of the volar wrist and normal vascular exam; no ecchymosis, Tinel's positive and Phalen's positive Psych: Mental Status: mental status grossly normal Affect: normal affect Thought process: Normal thought process present Medical Decision Making Medical Decision Making [facility] Narrative: Patient is a 57-year-old [id number] male presenting to the emergency department with complaint of ongoing right wrist pain for the past several months. On exam patient is awake, A+Ox3, VS WNL, afebrile, normal neurological exam without focal deficits, right volar wrist tenderness to palpation, +Tinel, +Phalen, 2+ radial pulse, full ROM all fingers right hand. Given reported symptoms and physical exam findings, initial differential includes carpal tunnel syndrome, cervical radiculopathy, median nerve radiculopathy. Do not suspect fracture or dislocation is patient denies trauma. Negative x-ray from 04/05 of this year. Will prescribe short course of prednisone, advised patient to avoid NSAIDs while on the prednisone but instructed him to resume naproxen once presnisone completed. Discussed with patient that he can additionally use Tylenol while taking both prednisone and naproxen. Instructed patient to ice wrist for 10-15 minutes at a time several times daily. Instructed patient to discontinue use of squeeze ball as this could be irritating his nerve. Instructed him instead to perform gentle range of motion of wrist and fingers of right hand. Directed patient to contact Orthopedics office for appointment. Return precautions discussed at bedside. Patient verbalized understanding of and agreement with plan. Differential Diagnosis Differential Diagnoses: The differential diagnosis associated with the presentation includes As per [facility] External Record Review External record reviewed: Inpatient record, Office record and Outpatient record Prescription Management I considered prescription management with: Other Discharge Plan Discharge Clinical Impression: Carpal tunnel syndrome Qualifiers: Laterality: right Qualified Code(s): G56.01 - Carpal tunnel syndrome, right upper limb Patient Disposition: Home, Self-Care Additional Instructions: You are being prescribed a short course of a steroid called prednisone to decrease inflammation to the nerve in your wrist. Do not take any NSAIDs (ibuprofen, naproxen) while taking the prednisone. You can take Tylenol while taking the prednisone. Once the prednisone is completed, you should resume use of the naproxen as well as Tylenol. You should ice your wrist for 10-15 minutes at a time several times daily using caution not to apply ice directly to wrist. Your again being referred to the orthopedic office, please contact them for an appointment. Return to the emergency department for worsening pain, new swelling to your wrist, new numbness or tingling, new weakness, or change of color in your hand. Prescriptions: New prednisone 20 mg tablet 40 mg PO DAILY Qty: 10 0RF No Action tramadol 50 mg tablet 50 mg PO BID PRN (Reason: pain) Qty: 10 0RF prednisone 20 mg tablet 20 mg PO DAILY 5 Days Qty: 5 0RF lidocaine 5 % adhesive patch,medicated 1 patch topical DAILY PRN (Reason: pain) Qty: 15 0RF Rx Instructions: leave on most painful area for up to 12 hrs clindamycin HCl 150 mg capsule 450 mg PO Q8H 7 Days Qty: 63 0RF oxycodone-acetaminophen [Percocet] 5-325 mg tablet 1 tab PO Q8H PRN (Reason: pain (scale score 7-10)) 3 Days Qty: 9 0RF Rx Instructions: Partial Fill upon patient request. clindamycin HCl 300 mg capsule 600 mg PO TID Qty: 21 0RF oxycodone-acetaminophen [Percocet] 5-325 mg tablet 1 tab PO TID PRN (Reason: severe pain (scale score 7-10)) Qty: 15 0RF Rx Instructions: Partial Fill upon patient request. oxycodone-acetaminophen [Percocet] 5-325 mg tablet 1 tab PO TID PRN (Reason: severe pain (scale score 7-10)) Qty: 15 0RF Rx Instructions: Partial Fill upon patient request. ibuprofen 600 mg tablet 600 mg PO Q6H PRN (Reason: pain) Qty: 45 0RF Referrals: [facility] [place] Orthopedic Surgeons [Provider Group]
== END 2023-05-23 11:51 | disposition home or self-care (01) ==
PROVIDERS: Emergency Provider Emergency Medicine; PCP Internal Medicine Geriatric Medicine
DX: G56.01 Carpal tunnel syndrome, right upper limb (principal); E11.9 Type 2 diabetes mellitus without complications; I10 Essential (primary) hypertension
CPT/HCPCS: 99282; 99283

== ENCOUNTER 2023-06-21 22:32 | Emergency (ER) | payer MEDICARE, MEDICAID, SELFPAY ==
[2023-06-21 22:35] VITALS: BP 162/75; PULSE 108; RESP 20; TEMP 37.3; O2SAT 98; BMI 33.9
--- NOTE | 2023-06-21 23:40 | ED_ITS ---
HPI - General Adult General Chief complaint: Dental/Oral Stated complaint: tooth pain Time Seen by Provider: 06/21/23 23:21 Source: patient, RN notes reviewed and old records reviewed Mode of arrival: ambulatory Limitations: no limitations History of Present Illness HPI narrative: 57-year-old male presents for evaluation of right facial pain and ?toothache. ? His symptoms started 3 days ago. He reports he has been following with a dentist due to chronic dental pain. He has been having several teeth removed He has had tooth 29 through 32 removed on the bottom right He states that a right lower tooth is still bothering him His pain is 10/10 and ?I cannot sleep because of the pain. ? He will try to see his dentist tomorrow Related Data Previous Rx's Medication Instructions Recorded lidocaine 5 % topical patch 1 patch topical DAILY PRN pain #15 12/06/22 ea prednisone 20 mg tablet 20 mg PO DAILY 5 days #5 tabs 12/06/22 tramadol 50 mg tablet 50 mg PO BID PRN pain #10 tabs 12/06/22 clindamycin HCl 300 mg capsule 600 mg (2 x 300 mg) PO TID #21 caps 02/11/23 oxycodone-acetaminophen 5 mg-325 1 tab PO TID PRN severe pain 02/11/23 mg tablet (Percocet) (scale score 7-10) #15 tabs oxycodone-acetaminophen 5 mg-325 1 tab PO TID PRN severe pain 02/11/23 mg tablet (Percocet) (scale score 7-10) #15 tabs clindamycin HCl 150 mg capsule 450 mg (3 x 150 mg) PO Q8H 7 days 03/09/23 #63 caps oxycodone-acetaminophen 5 mg-325 1 tab PO Q8H PRN pain (scale score 03/09/23 mg tablet (Percocet) 7-10) 3 days #9 tabs ibuprofen 600 mg tablet 600 mg PO Q6H PRN pain #45 tabs 04/25/23 prednisone 20 mg tablet 40 mg (2 x 20 mg) PO DAILY #10 tabs 05/23/23 amoxicillin 500 mg tablet 500 mg PO TID #21 tabs 06/21/23 oxycodone 5 mg tablet 5 mg PO Q6H PRN severe pain (scale 06/21/23 score 7-10) #12 tabs Allergies Allergy/AdvReac Type Severity Reaction Status Date / Time No Known Allergies Allergy Verified 06/21/23 22:39 [No Known Allergies*] Review of Systems Constitutional: Constitutional: Denies chills and Denies fever(s) Eyes: Eyes: Denies blurry vision ENT: Reports facial pain and Reports mouth pain Cardiovascular: Cardiovascular: Denies chest pain and Denies dyspnea Respiratory: Respiratory: Denies cough and Denies dyspnea Gastrointestinal: Gastrointestinal: Denies abdominal pain, Denies nausea and Denies vomiting Musculoskeletal: Musculoskeletal: Denies back pain Integumentary/Breasts: Skin/Breast: Denies rash PMFSH Past Medical History Medical History (Updated 06/21/23 @ 23:41 by Anthony Hodge) Anxiety Depression Hypertension Neuropathy Diabetes Social History Social History Advance Directives: No Advance Directives Information Provided: Yes Physical Exam ED Vital Signs: Vital Signs - 24 hr 06/21/23 22:35 Temperature 99.2 F Pulse Rate 108 H Respiratory Rate 20 Blood Pressure 162/75 H Pulse Oximetry 98 Oxygen Delivery Method Room Air BMI result Body Mass Index 33.9 Const General: healthy appearing, comfortable, no acute distress, alert and awake Nutritional Appearance: well nourished Orientation/consciousness: patient oriented x3 HENMT Other: Patient has teeth numbers 29 through 32 removed. Tooth number 28 his a small fracture in it. There is minimal surrounding erythema, no significant edema or fluctuance. No obvious drainable abscess. Head: Yes normocephalic and Yes atraumatic Eyes Eyelids: Yes eyelids normal Conjunctivae: conjunctivae normal Sclerae: sclerae normal Corneas: corneas normal Pupils: Equal, round and reactive pupils present EOM: EOMs intact bilaterally Neck Neck: Yes full ROM Resp Effort & Inspection: normal respiratory effort, able to speak in complete se ntences and not labored Cardio Rate: regular rate Rhythm: regular rhythm GI Inspection: No distended Palpation (GI): Soft to palpation, not firm, nontender, no guarding and not rigid Skin General skin exam: elasticity normal Neuro General: patient oriented x3 Cranial nerves: Yes Equal, round and reactive pupils present and Yes Bilaterally intact EOM present Cognition (Neuro): normal cognition Extrem Other: Moving all extremities well without any obvious deformities Medical Decision Making Medical Decision Making MDM Narrative: 57-year-old male presents for evaluation of facial pain and a toothache. He has no obvious abscess that is amenable to incision and drainage. Will treat with amoxicillin and oxycodone. He will follow-up with his dentist as soon as possible Differential Diagnosis Differential Diagnoses: The differential diagnosis associated with the presentation includes Atypical facial pain Toothache Dental abscess Dental caries Discharge Plan Discharge Clinical Impression: Atypical face pain, Toothache Patient Disposition: Home, Self-Care Instructions: Toothache (ED) Additional Instructions: Take amoxicillin 3 times daily for the next 7 days Use ibuprofen and Tylenol for pain Use oxycodone for severe, breakthrough pain. This may make you sleepy, do not drink alcohol or drive after taking it Follow-up with your dentist as soon as possible Prescriptions: New amoxicillin 500 mg tablet 500 mg PO TID Qty: 21 0RF oxycodone 5 mg tablet 5 mg PO Q6H PRN (Reason: severe pain (scale score 7-10)) Qty: 12 0RF Rx Instructions: Partial Fill upon patient request. No Action tramadol 50 mg tablet 50 mg PO BID PRN (Reason: pain) Qty: 10 0RF prednisone 20 mg tablet 20 mg PO DAILY 5 Days Qty: 5 0RF lidocaine 5 % adhesive patch,medicated 1 patch topical DAILY PRN (Reason: pain) Qty: 15 0RF Rx Instructions: leave on most painful area for up to 12 hrs clindamycin HCl 150 mg capsule 450 mg PO Q8H 7 Days Qty: 63 0RF oxycodone-acetaminophen [Percocet] 5-325 mg tablet 1 tab PO Q8H PRN (Reason: pain (scale score 7-10)) 3 Days Qty: 9 0RF Rx Instructions: Partial Fill upon patient request. clindamycin HCl 300 mg capsule 600 mg PO TID Qty: 21 0RF oxycodone-acetaminophen [Percocet] 5-325 mg tablet 1 tab PO TID PRN (Reason: severe pain (scale score 7-10)) Qty: 15 0RF Rx Instructions: Partial Fill upon patient request. oxycodone-acetaminophen [Percocet] 5-325 mg tablet 1 tab PO TID PRN (Reason: severe pain (scale score 7-10)) Qty: 15 0RF Rx Instructions: Partial Fill upon patient request. ibuprofen 600 mg tablet 600 mg PO Q6H PRN (Reason: pain) Qty: 45 0RF prednisone 20 mg tablet 40 mg PO DAILY Qty: 10 0RF
[2023-06-21 23:45] VITALS: BP 161/84; PULSE 94; RESP 16; TEMP 36.3; O2SAT 98
[2023-06-22] MEDS: oxyCODONE HCl Immed Release 5 MG TABLET PO (00:43)
[2023-06-22] MEDS: Amoxicillin 500 MG CAPSULE PO (00:44)
== END 2023-06-22 01:37 | disposition home or self-care (01) ==
PROVIDERS: Emergency Provider Emergency Medicine; PCP Internal Medicine Geriatric Medicine
DX: G50.1 Atypical facial pain (principal); K08.89 Other specified disorders of teeth and supporting structures; E11.9 Type 2 diabetes mellitus without complications; I10 Essential (primary) hypertension
CPT/HCPCS: 99283

== ENCOUNTER 2023-08-02 17:33 | Emergency (ER) | payer MEDICARE, MEDICAID, SELFPAY ==
[2023-08-02 18:18] VITALS: TEMP 36.9; O2SAT 98; BMI 25.6
--- NOTE | 2023-08-02 18:21 | ED.GENADULT ---
HPI - General Adult General Chief complaint: Dental/Oral Stated complaint: tooth pain Time Seen by Provider: 08/02/23 18:21 Source: patient, RN notes reviewed and old records reviewed Mode of arrival: ambulatory Limitations: no limitations History of Present Illness HPI narrative: 57-year-old male presents for evaluation of right lower facial/dental pain. He reports a history of dental issues and is due to see a dentist in 2 weeks to have teeth pulled He has a known fractured tooth on the right lower area of the jaw. Around 10:00 a.m. this morning, approximately an hours ago he started to have pain this area Denies any known swelling, fevers, chills No other complaints or concerns alcohol Related Data Previous Rx's Medication Instructions Recorded lidocaine 5 % topical patch 1 patch topical DAILY PRN pain #15 12/06/22 ea prednisone 20 mg tablet 20 mg PO DAILY 5 days #5 tabs 12/06/22 tramadol 50 mg tablet 50 mg PO BID PRN pain #10 tabs 12/06/22 clindamycin HCl 300 mg capsule 600 mg (2 x 300 mg) PO TID #21 caps 02/11/23 oxycodone-acetaminophen 5 mg-325 1 tab PO TID PRN severe pain 02/11/23 mg tablet (Percocet) (scale score 7-10) #15 tabs oxycodone-acetaminophen 5 mg-325 1 tab PO TID PRN severe pain 02/11/23 mg tablet (Percocet) (scale score 7-10) #15 tabs clindamycin HCl 150 mg capsule 450 mg (3 x 150 mg) PO Q8H 7 days 03/09/23 #63 caps oxycodone-acetaminophen 5 mg-325 1 tab PO Q8H PRN pain (scale score 03/09/23 mg tablet (Percocet) 7-10) 3 days #9 tabs ibuprofen 600 mg tablet 600 mg PO Q6H PRN pain #45 tabs 04/25/23 prednisone 20 mg tablet 40 mg (2 x 20 mg) PO DAILY #10 tabs 05/23/23 amoxicillin 500 mg tablet 500 mg PO TID #21 tabs 06/21/23 oxycodone 5 mg tablet 5 mg PO Q6H PRN severe pain (scale 06/21/23 score 7-10) #12 tabs amoxicillin 500 mg tablet 500 mg PO Q8H #21 tabs 08/02/23 tramadol 50 mg tablet 50 mg PO TID PRN severe pain 08/02/23 (scale score 7-10) #12 tabs Allergies Allergy/AdvReac Type Severity Reaction Status Date / Time No Known Allergies Allergy Verified 06/21/23 22:39 [No Known Allergies*] Review of Systems Constitutional: Constitutional: Denies chills and Denies fever(s) ENT: Reports mouth pain and Denies sore throat PMFSH Past Medical History Medical History (Updated 08/02/23 @ 18:26 by Anthony Hodge) Anxiety Depression Hypertension Neuropathy Diabetes Physical Exam ED Vital Signs: Vital Signs - 24 hr 08/02/23 18:18 Temperature 98.5 F Pulse Oximetry 98 Oxygen Delivery Method Room Air BMI result Body Mass Index 25.6 Const General: healthy appearing, comfortable, no acute distress, alert and awake Nutritional Appearance: well nourished Orientation/consciousness: patient oriented x3 HENMT Other: Patient has a partial dental fracture to tooth number 26 there is no significant erythema or edema. Noted dental abscess, no Eldon's angina. No anterior neck swelling. Teeth 28-32 to have already been removed Head: Yes normocephalic and Yes atraumatic Throat: Yes posterior oropharynx normal Eyes Eyelids: Yes eyelids normal Conjunctivae: conjunctivae normal Sclerae: sclerae normal Corneas: corneas normal Pupils: Equal, round and reactive pupils present EOM: EOMs intact bilaterally Neck Neck: Yes full ROM Resp Effort & Inspection: normal respiratory effort, able to speak in complete sentences and not labored Skin General skin exam: elasticity normal Neuro General: patient oriented x3 Cranial nerves: Yes Equal, round and reactive pupils present and Yes Bilaterally intact EOM present Cognition (Neuro): normal cognition Extrem Other: Moving all extremities well without any obvious deformities Medical Decision Making Medical Decision Making MDM Narrative: 57-year-old male presents for evaluation of facial/dental pain. He has known dental fractures. He has appropriate follow-up in 2 weeks. There is no sign of abscess that is amenable to drainage. Will treat with amoxicillin and tramadol. Differential Diagnosis Differential Diagnoses: The differential diagnosis associated with the presentation includes Facial pain Dental caries Dental fracture Dental abscess Discharge Plan Discharge Clinical Impression: Toothache, Facial pain Patient Disposition: Home, Self-Care Instructions: Toothache (ED) Additional Instructions: Use ibuprofen/Tylenol for pain. Use amoxicillin 3 times daily for 7 days. Take tramadol for more severe breakthrough pain. This may make you sleepy, do not drink alcohol or drive after taking it. You may also use [id number] Orajel. Follow-up your dentist as planned Prescriptions: New amoxicillin 500 mg tablet 500 mg PO Q8H Qty: 21 0RF tramadol 50 mg tablet 50 mg PO TID PRN (Reason: severe pain (scale score 7-10)) Qty: 12 0RF No Action tramadol 50 mg tablet 50 mg PO BID PRN (Reason: pain) Qty: 10 0RF prednisone 20 mg tablet 20 mg PO DAILY 5 Days Qty: 5 0RF lidocaine 5 % adhesive patch,medicated 1 patch topical DAILY PRN (Reason: pain) Qty: 15 0RF Rx Instructions: leave on most painful area for up to 12 hrs clindamycin HCl 150 mg capsule 450 mg PO Q8H 7 Days Qty: 63 0RF oxycodone-acetaminophen [Percocet] 5-325 mg tablet 1 tab PO Q8H PRN (Reason: pain (scale score 7-10)) 3 Days Qty: 9 0RF Rx Instructions: Partial Fill upon patient request. clindamycin HCl 300 mg capsule 600 mg PO TID Qty: 21 0RF oxycodone-acetaminophen [Percocet] 5-325 mg tablet 1 tab PO TID PRN (Reason: severe pain (scale score 7-10)) Qty: 15 0RF Rx Instructions: Partial Fill upon patient request. oxycodone-acetaminophen [Percocet] 5-325 mg tablet 1 tab PO TID PRN (Reason: severe pain (scale score 7-10)) Qty: 15 0RF Rx Instructions: Partial Fill upon patient request. ibuprofen 600 mg tablet 600 mg PO Q6H PRN (Reason: pain) Qty: 45 0RF prednisone 20 mg tablet 40 mg PO DAILY Qty: 10 0RF amoxicillin 500 mg tablet 500 mg PO TID Qty: 21 0RF oxycodone 5 mg tablet 5 mg PO Q6H PRN (Reason: severe pain (scale score 7-10)) Qty: 12 0RF Rx Instructions: Partial Fill upon patient request.
== END 2023-08-02 18:34 | disposition home or self-care (01) ==
PROVIDERS: Emergency Provider Internal Medicine; PCP Internal Medicine Geriatric Medicine
DX: K08.89 Other specified disorders of teeth and supporting structures (principal); R51.9 Headache, unspecified; Z79.899 Other long term (current) drug therapy
CPT/HCPCS: 99282; 99283

== ENCOUNTER 2023-08-03 12:06 | Outpatient (REF) | payer MEDICARE, MEDICAID, SELFPAY ==
[2023-08-03 14:14] LABS: Anion Gap 13 (12-20); Blood Urea Nitrogen 8 mg/dL (9-16); Calcium 9.4 mg/dL (8.4-10.2); Carbon Dioxide 29 mmol/L (22-29); Chloride 104 mmol/L (96-108); Estimated Glomerular Filt Rate > 60; Glucose Random 109 mg/dL (60-115); Sodium 142 mmol/L (135-145)
== END 2023-08-03 12:07 | disposition home or self-care (01) ==
LOC: HO.HHCL 12:06
PROVIDERS: Visit Provider Internal Medicine Geriatric Medicine
DX: E11.42 Type 2 diabetes mellitus with diabetic polyneuropathy (principal)
CPT/HCPCS: 36415; 80048

== ENCOUNTER 2023-09-17 18:10 | Outpatient (REF) | payer MEDICARE, MEDICAID, SELFPAY | END 2023-09-17 18:11 | disposition home or self-care (01) | LOC: HO.HHCLNP 18:10 | PROVIDERS: Visit Provider Emergency Medicine | DX: L98.9 Disorder of the skin and subcutaneous tissue, unspecified (principal) | CPT/HCPCS: 87070; 87205 ==

== ENCOUNTER 2023-11-21 09:06 | Emergency (ER) | payer MEDICARE, MEDICAID, SELFPAY ==
[2023-11-21 09:10] VITALS: BP 141/75; PULSE 118; RESP 16; TEMP 36.7; O2SAT 97; BMI 34.8
--- NOTE | 2023-11-21 09:27 | ED_ITS ---
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 Pain located to his right upper tooth. Denies drainage/ oozing from the tooth. Denies recent dental procedures. Denies trauma/injury to the face. Denies breaking the tooth. He has been taking tylenol at home without relief of pain. Admits he was unable to sleep last night due to the pain. He states that he currently has an appointment with his dentist scheduled for next week for tooth extraction and is not able to get in sooner. Denies fever, chills, [place], vision changes, dysphagia, odynophagia, voice change, truisms, dyspnea. MD Complaint: tooth pain Related Data Previous Rx's Medication Instructions Recorded lidocaine 5 % topical patch 1 patch topical DAILY PRN pain #15 12/06/22 ea prednisone 20 mg tablet 20 mg PO DAILY 5 days #5 tabs 12/06/22 tramadol 50 mg tablet 50 mg PO BID PRN pain #10 tabs 12/06/22 clindamycin HCl 300 mg capsule 600 mg (2 x 300 mg) PO TID #21 caps 02/11/23 oxycodone-acetaminophen 5 mg-325 1 tab PO TID PRN severe pain 02/11/23 mg tablet (Percocet) (scale score 7-10) #15 tabs oxycodone-acetaminophen 5 mg-325 1 tab PO TID PRN severe pain 02/11/23 mg tablet (Percocet) (scale score 7-10) #15 tabs clindamycin HCl 150 mg capsule 450 mg (3 x 150 mg) PO Q8H 7 days 03/09/23 #63 caps oxycodone-acetaminophen 5 mg-325 1 tab PO Q8H PRN pain (scale score 03/09/23 mg tablet (Percocet) 7-10) 3 days #9 tabs ibuprofen 600 mg tablet 600 mg PO Q6H PRN pain #45 tabs 04/25/23 prednisone 20 mg tablet 40 mg (2 x 20 mg) PO DAILY #10 tabs 05/23/23 amoxicillin 500 mg tablet 500 mg PO TID #21 tabs 06/21/23 oxycodone 5 mg tablet 5 mg PO Q6H PRN severe pain (scale 06/21/23 score 7-10) #12 tabs amoxicillin 500 mg tablet 500 mg PO Q8H #21 tabs 08/02/23 tramadol 50 mg tablet 50 mg PO TID PRN severe pain 08/02/23 (scale score 7-10) #12 tabs clindamycin HCl 150 mg capsule 450 mg (3 x 150 mg) PO Q8H 7 days 11/21/23 #63 caps tramadol 50 mg tablet 50 mg PO TID PRN pain (scale score 11/21/23 7-10) #10 tabs Allergies Allergy/AdvReac Type Severity Reaction Status Date / Time No Known Allergies Allergy Verified 11/21/23 09:09 [No Known Allergies*] Review of Systems Review of Systems: Constitutional: No fever, chills, fatigue, night sweats, weight changes ENT/Mouth: No ear pain, hearing loss, nasal congestion, sinus pain, rhinorrhea, sore throat, +dental pain Eyes: No eye pain, swelling, redness, vision changes, discharge Cardio: No chest pain, palpitations, ANTOINE, orthopnea, peripheral edema Pulm: No SOB, cough, sputum, wheezing, dyspnea, hemoptysis GI: No nausea, vomiting, hematemesis, abdominal pain, diarrhea, constipation, hematochezia, melena : No irregular bleeding, dysuria, frequency, urgency, hesitancy, hematuria, flank pain, urinary flow changes, urinary incontinence or retention MSK: No back pain, neck pain, joint pain, myalgias Skin: No lesions, rashes Neuro: No weakness, numbness, paresthesias, LOC, dizziness, headache Psych: No anxiety/panic, depression, SI/HI, AH/VH All other systems reviewed and are negative. [facility] Past Medical History Attestation statement: The following information was validated with the patient. Source: old records reviewed and nursing notes reviewed Medical History Anxiety Depression Hypertension Neuropathy Diabetes Social History Social History Smoked in Last 30 Days: No Use of substances other than those prescribed or required for medical reasons: No Advance Directives: No Advance Directives Information Provided: Yes Physical Exam Vital Signs: Vital Signs: Last Vital Signs Temp 98.1 F 11/21/23 09:10 Pulse 118 H 11/21/23 09:10 Resp 16 11/21/23 09:10 BP 141/75 H 11/21/23 09:10 Pulse Ox 97 11/21/23 09:10 O2 Del Method Room Air 11/21/23 09:10 BMI result Body Mass Index 34.8 Vital signs stable, afebrile. Const: General: cooperative, comfortable and no acute distress Orientation/consciousness: patient oriented x3 Limitations: no limitations HEENT: Other: + No facial edema. Tongue and lips wnl + multiple dental caries and poor dentit ion. right upper cuspid (tooth #6) with localized periapical swelling to the lingual ginginva. No pointing. No active bleeding/ discharge. TTP. No palpable fluctuance. teeth 28-32 removed. + No edema to buccal mucosa + Posterior oropharynx without erythema/ edema. Uvula midline. Controlling secretions and speaking in complete sentences + No submandublar or submental LAD + No cervical LAD + no michael's angina or anterior neck sw elling Head: Yes normal to inspection, Yes No palpable skull fracture present, Yes normocephalic and Yes atraumatic Ears: hearing grossly normal bilaterally, external ears normal, TM's normal bilaterally, EAC's normal, mastoids normal and no periauricular adenopathy Eyes: General: appearance normal, both eyes and all related structures Conjunctivae: conjunctivae normal Sclerae: sclerae normal Pupils: Equal, round and reactive pupils present Neck: Neck: Yes normal visual inspection and Yes no lymphadenopathy Resp: Effort & Inspection: normal respiratory effort and no stridor Auscultation: clear to auscultation bilaterally Cardio: Rate: regular rate Rhythm: regular rhythm Skin: General skin exam: no rashes or lesions noted Neuro: General: patient oriented x3 and gait normal Cranial nerves: Yes E qual, round and reactive pupils present Course Course Course Narrative: 1010-- Patient noted to have dental infection without evidence of abscess that would warrant drainage at this time. Will treat patient's pain and patient will be discharged home on clindamycin to ensure there is no worsening infection for follow-up with dentist. He states that he has an appointment with his dentist next week for tooth extraction. Patient advised to call office and inform them of today's visit. Patient has remained stable throughout ED visit today. I discussed worrisome signs and symptoms and when to return to the ED. All questions answered at this time. Patient is agreeable with disposition and stable for discharge. Medical Decision Making Medical Decision Making MDM Narrative: 57 year old male with pmhx significant for anxiety, depression, hypertension, diabetes, and neuropathy presents to the emergency department this morning for evaluation of severe dental pain x2 days. Patient is nontoxic appearing and in NAD. No facial edema. Tongue and lips wnl. Multiple dental caries and poor dentition. right upper cuspid (tooth #6) with localized periapical swelling to the lingual ginginva. No pointing. No active bleeding/ discharge. TTP. No palpable fluctuance. teeth 28-32 removed. No edema to buccal mucosa. Posterior oropharynx without erythema/edema. Uvula midline. Controlling secretions and speaking in complete sentences. No submandublar or submental LAD. No cervical LAD. No michael's angina or anterior neck swelling Differential includes dental infection, apthous stomatitis. Unlikely mono, herpes, sialadenitis, sialolithiasis, [employer]ATIONS, retropharyngeal abscess, deep neck infection, osteomyelitis, facial cellulitis/ abscess, lymphoma. Plan for pain control and discharge home with antibiotics and dentist follow up. Differential Diagnosis Differential Diagnoses: The differential diagnosis associated with the presentation includes as above. Admission/Observation Not indicated. External Record Review External record reviewed: Inpatient record Tests considered The following testing was considered but not selected: I considered obtaining a CT soft tissues neck however there is no evidence of Michael's angina or concern for deep tissue infection. Not warranted at this time. Prescription Management I considered prescription management with: Pain Medication (tramadol) and Antibiotic (clindamycin) Chronic Conditions Patient?s care impacted by: Diabetes Social Determinants Patient?s care significantly limited by Social Determinants of Health including: Other Social Determinant of Health Discharge Plan Discharge Clinical Impression: Toothache, Dental caries Patient Disposition: Home, Self-Care Instructions: Toothache (ED), Tooth Extraction (DC) Additional Instructions: You were noted to have a tooth infection. Clindamycin is an antibiotic that has been sent to your pharmacy. Take this 3 times daily for the next 7 days. Do not stop taking this or skip any doses of this may cause infection to return or worsen. Take Tylenol and ibuprofen at home as needed. Tramadol is a pain medication that has been sent to your pharmacy for you to take as needed for more severe breakthrough pain. This may make you sleepy. Do not drink alcohol or drive after taking it. You may also use [id number] Orajel. Keep your appointment with your dentist next week. Return for new or worsening symptoms as discussed. Se not? que ten?a jann infecci?n dental. La clindamicina es un antibi?naveen que camargo sido enviado a ayala farmacia. [place] esto 3 veces al d?a jerzy los pr?ximos 7 d?as. No deje de radha esto ni se salte ninguna dosis, ya que puede provocar que la infecci?n regrese o empeore. [place] Tylenol e ibuprofeno en casa seg?n sea necesario. Tramadol es un analg?sico que se camargo enviado a ayala farmacia para que lo tome seg?n sea necesario en maday de dolor irruptivo m?s intenso. [place] puede provocarle marni?o. No modesta alcohol ni conduzca despu?s de tomarlo. Tambi?n puede utilizar Orajel de venta adams. Mantenga ayala jenny con ayala dentista la pr?xima semana. Regrese si los s?ntomas son nuevos o empeoran, seg?n lo comentado. Prescriptions: New clindamycin HCl 150 mg capsule 450 mg PO Q8H 7 Days Qty: 63 0RF tramadol 50 mg tablet 50 mg PO TID PRN (Reason: pain (scale score 7-10)) Qty: 10 0RF No Action tramadol 50 mg tablet 50 mg PO BID PRN (Reason: pain) Qty: 10 0RF prednisone 20 mg tablet 20 mg PO DAILY 5 Days Qty: 5 0RF lidocaine 5 % adhesive patch,medicated 1 patch topical DAILY PRN (Reason: pain) Qty: 15 0RF Rx Instructions: leave on most painful area for up to 12 hrs clindamycin HCl 150 mg capsule 450 mg PO Q8H 7 Days Qty: 63 0RF oxycodone-acetaminophen [Percocet] 5-325 mg tablet 1 tab PO Q8H PRN (Reason: pain (scale score 7-10)) 3 Days Qty: 9 0RF Rx Instructions: Partial Fill upon patient request. amoxicillin 500 mg tablet 500 mg PO Q8H Qty: 21 0RF tramadol 50 mg tablet 50 mg PO TID PRN (Reason: severe pain (scale score 7-10)) Qty: 12 0RF clindamycin HCl 300 mg capsule 600 mg PO TID Qty: 21 0RF oxycodone-acetaminophen [Percocet] 5-325 mg tablet 1 tab PO TID PRN (Reason: severe pain (scale score 7-10)) Qty: 15 0RF Rx Instructions: Partial Fill upon patient request. oxycodone-acetaminophen [Percocet] 5-325 mg tablet 1 tab PO TID PRN (Reason: severe pain (scale score 7-10)) Qty: 15 0RF Rx Instructions: Partial Fill upon patient request. ibuprofen 600 mg tablet 600 mg PO Q6H PRN (Reason: pain) Qty: 45 0RF prednisone 20 mg tablet 40 mg PO DAILY Qty: 10 0RF amoxicillin 500 mg tablet 500 mg PO TID Qty: 21 0RF oxycodone 5 mg tablet 5 mg PO Q6H PRN (Reason: severe pain (scale score 7-10)) Qty: 12 0RF Rx Instructions: Partial Fill upon patient request. Print Language: Kazakh
[2023-11-21] MEDS: Ketorolac Tromethamine 30 MG/ML VIAL 60 MG IM (10:07)
== END 2023-11-21 10:27 | disposition home or self-care (01) ==
PROVIDERS: Emergency Provider Emergency Medicine; PCP Internal Medicine Geriatric Medicine
DX: K02.9 Dental caries, unspecified (principal); Z79.899 Other long term (current) drug therapy
CPT/HCPCS: 96372; 99283; 99284; J1885

== ENCOUNTER 2023-12-08 07:33 | Emergency (ER) | payer MEDICARE, MEDICAID, SELFPAY ==
[2023-12-08 07:36] VITALS: BP 168/91; PULSE 119; RESP 18; TEMP 36.4; O2SAT 96; BMI 30.2
--- NOTE | 2023-12-08 07:49 | ED.DENTAL ---
HPI - Dental/Oral General Chief complaint: Dental/Oral Stated complaint: Broken Tooth Time Seen by Provider: 12/08/23 07:49 Source: patient Mode of arrival: ambulatory Limitations: no limitations History of Present Illness HPI Narrative: Patient is a 58-year-old male presenting to the emergency department with complaint of right lower jaw pain. States that he was eating the day before yesterday and fractured his tooth at that time. States he found the tooth and spit it out but did not keep fractured tooth. He has an appointment with his dentist on the . Denies any discharge or drainage, denies fevers, denies any difficulty swallowing or breathing. MD Complaint: tooth injury Teeth map: 1. fracture Onset (ago): day(s) Duration: constant Severity: severe Relieving factors: nothing Exacerbating factors: chewing Context: history of dental caries and poor dental care Treatment prior to arrival: none Related Data Previous Rx's Medication Instructions Recorded lidocaine 5 % topical patch 1 patch topical DAILY PRN pain #15 12/06/22 ea prednisone 20 mg tablet 20 mg PO DAILY 5 days #5 tabs 12/06/22 tramadol 50 mg tablet 50 mg PO BID PRN pain #10 tabs 12/06/22 clindamycin HCl 300 mg capsule 600 mg (2 x 300 mg) PO TID #21 caps 02/11/23 oxycodone-acetaminophen 5 mg-325 1 tab PO TID PRN severe pain 02/11/23 mg tablet (Percocet) (scale score 7-10) #15 tabs oxycodone-acetaminophen 5 mg-325 1 tab PO TID PRN severe pain 02/11/23 mg tablet (Percocet) (scale score 7-10) #15 tabs clindamycin HCl 150 mg capsule 450 mg (3 x 150 mg) PO Q8H 7 days 03/09/23 #63 caps oxycodone-acetaminophen 5 mg-325 1 tab PO Q8H PRN pain (scale score 03/09/23 mg tablet (Percocet) 7-10) 3 days #9 tabs ibuprofen 600 mg tablet 600 mg PO Q6H PRN pain #45 tabs 04/25/23 prednisone 20 mg tablet 40 mg (2 x 20 mg) PO DAILY #10 tabs 05/23/23 amoxicillin 500 mg tablet 500 mg PO TID #21 tabs 06/21/23 oxycodone 5 mg tablet 5 mg PO Q6H PRN severe pain (scale 06/21/23 score 7-10) #12 tabs amoxicillin 500 mg tablet 500 mg PO Q8H #21 tabs 08/02/23 tramadol 50 mg tablet 50 mg PO TID PRN severe pain 08/02/23 (scale score 7-10) #12 tabs clindamycin HCl 150 mg capsule 450 mg (3 x 150 mg) PO Q8H 7 days 11/21/23 #63 caps tramadol 50 mg tablet 50 mg PO TID PRN pain (scale score 11/21/23 7-10) #10 tabs amoxicillin 875 mg-potassium 1 tab PO TID #21 tabs 12/08/23 clavulanate 125 mg tablet lidocaine HCl 2 % mucosal solution 1 appl mucous membrane TID PRN 12/08/23 (Lidocaine Viscous) mouth pain #100 mL Allergies Allergy/AdvReac Type Severity Reaction Status Date / Time No Known Allergies Allergy Verified 12/08/23 07:41 [No Known Allergies*] Review of Systems Review of Systems: As per HPI. Yes all other systems are reviewed and are negative Constitutional: Constitutional: Reports as per HPI [facility] Past Medical History Medical History Anxiety Depression Hypertension Neuropathy Diabetes Physical Exam Vital Signs: Vital Signs: Last Vital Signs Temp 97.5 F 12/08/23 07:36 Pulse 119 H 12/08/23 07:36 Resp 18 12/08/23 07:36 BP 168/91 H 12/08/23 07:36 Pulse Ox 96 12/08/23 07:36 O2 Del Method Room Air 12/08/23 07:36 BMI result Body Mass Index 30.2 Vital signs have been reviewed and appear to be correct. Blood pressure elevated. Heart rate tachycardic. Respiratory rate normal. Temperature normal. Oxygen saturation normal. Const: General: cooperative, healthy appearing and no acute distress Orientation/consciousness: oriented to person, oriented to place, oriented to time and patient oriented x3 Limitations: no limitations HEENT: Head: Yes normocephalic and Yes atraumatic Ears: external ears normal General nose exam: Normal external nose present Face and sinus: Yes normal facial exam, Yes face symmetric and No edema Mouth: Normal oral and palatal mucosa present, lip normal, tongue normal, Normal salivary glands and ducts present, oropharynx normal, moist mucous membranes, no audible dysphonia, no drooling, no trismus and No restricted motion Teeth and gingiva: caries and poor dentition Teeth image: 1. fracture, localized swelling to surrounding gingiva, no fluctuance, no drainage Throat: Yes posterior oropharynx normal, Yes uvula midline and No uvular edema Eyes: Pupils: Equal, round and reactive pupils present Neck: Neck: Yes normal visual inspection and Yes supple Lymphatic: no lymphadenopathy noted Resp: Effort & Inspection: normal respiratory effort and able to speak in complete sentences Auscultation: clear to auscultation bilaterally Cardio: Rate: regular rate Rhythm: regular rhythm Heart sounds: S1 normal heart sound present and S2 normal heart sound present GI: Palpation (GI): Soft to palpation and nontender Auscultation: normoactive bowel sounds : General: Yes no CVA tenderness Back/Spine/Pelvis: Back: no CVA tenderness Skin: General skin exam: elasticity normal and turgor normal Neuro: General: oriented to person, oriented to place, oriented to time, patient oriented x3, moves all extremities, no focal motor deficits and CN's II-XI intact bilaterally Cranial nerves: Yes Equal, round and reactive pupils present Cognition (Neuro): normal cognition Extrem: General: Yes full ROM, Yes no pedal edema and Yes no calf tenderness Psych: Mental Status: mental status grossly normal Affect: normal affect Thought process: Normal thought process present Medical Decision Making Medical Decision Making MDM Narrative: Patient is a 58-year-old male presenting to the emergency department with complaint of right lower jaw pain. On exam patient is awake, A+Ox3, tachycardic, hypertensice, VS otherwise WNL, afebrile, normal neurological exam without focal deficits, physical exam findings as above. Given reported symptoms and physical exam findings, initial differential includes fractured tooth, dental infection, dental abscess. No evidence of Eldon's angina, no lymphadenopathy. Will place patient on course of augmenting, instructed him to follow up with dentist on the or sooner if possible. Review of [employer]OR[employer] [employer] and EMR shows patient was recently prescribed Tramadol for dental pain on 11/20. At this time will advised him to alternate Tylenol and ibuprofen and will prescribe viscouse lidocaine to swish and spit. Return precautions discussed at bedside. Patient verbalized understanding of and agreement with plan. Differential Diagnosis Differential Diagnoses: The differential diagnosis associated with the presentation includes As per MDM. External Record Review External record reviewed: Inpatient record, Office record, Outpatient record and Other ([facility]IC[facility]IST) Prescription Management I considered prescription management with: Pain Medication and Antibiotic Discharge Plan Discharge Clinical Impression: Fracture of tooth Patient Disposition: Home, Self-Care Instructions: Acute Dental Trauma (ED), Toothache (ED) Additional Instructions: You were evaluated in the emergency department today for complaint of dental pain. You are being treated for a dental infection with antibiotics. Please complete the full course of antibiotics as prescribed even if your symptoms improve. IT IS IMPORTANT THAT YOU FOLLOW UP WITH YOUR DENTIST. We recommend that you take 600 mg ibuprofen or 650 mg Tylenol every 6 hours as needed for pain. If necessary, you can alternate these medications every 3 hours. For example, at 9:00 a.m. take Tylenol, then at noon take ibuprofen, then at 3:00 p.m. take Tylenol, etc.. Return to the emergency department if you develop worsening pain, swelling, difficulty swallowing, difficulty breathing, fever, or any other concerning symptoms. Prescriptions: New amoxicillin-pot clavulanate 875-125 mg tablet 1 tab PO TID Qty: 21 0RF lidocaine HCl [Lidocaine Viscous] 2 % solution 1 appl mucous membrane TID PRN (Reason: mouth pain) Qty: 100 0RF Rx Instructions: Swish and spit out 5mL up to three times daily as needed for pain No Action tramadol 50 mg tablet 50 mg PO BID PRN (Reason: pain) Qty: 10 0RF prednisone 20 mg tablet 20 mg PO DAILY 5 Days Qty: 5 0RF lidocaine 5 % adhesive patch,medicated 1 patch topical DAILY PRN (Reason: pain) Qty: 15 0RF Rx Instructions: leave on most painful area for up to 12 hrs clindamycin HCl 150 mg capsule 450 mg PO Q8H 7 Days Qty: 63 0RF oxycodone-acetaminophen [Percocet] 5-325 mg tablet 1 tab PO Q8H PRN (Reason: pain (scale score 7-10)) 3 Days Qty: 9 0RF Rx Instructions: Partial Fill upon patient request. amoxicillin 500 mg tablet 500 mg PO Q8H Qty: 21 0RF tramadol 50 mg tablet 50 mg PO TID PRN (Reason: severe pain (scale score 7-10)) Qty: 12 0RF clindamycin HCl 150 mg capsule 450 mg PO Q8H 7 Days Qty: 63 0RF tramadol 50 mg tablet 50 mg PO TID PRN (Reason: pain (scale score 7-10)) Qty: 10 0RF clindamycin HCl 300 mg capsule 600 mg PO TID Qty: 21 0RF oxycodone-acetaminophen [Percocet] 5-325 mg tablet 1 tab PO TID PRN (Reason: severe pain (scale score 7-10)) Qty: 15 0RF Rx Instructions: Partial Fill upon patient request. oxycodone-acetaminophen [Percocet] 5-325 mg tablet 1 tab PO TID PRN (Reason: severe pain (scale score 7-10)) Qty: 15 0RF Rx Instructions: Partial Fill upon patient request. ibuprofen 600 mg tablet 600 mg PO Q6H PRN (Reason: pain) Qty: 45 0RF prednisone 20 mg tablet 40 mg PO DAILY Qty: 10 0RF amoxicillin 500 mg tablet 500 mg PO TID Qty: 21 0RF oxycodone 5 mg tablet 5 mg PO Q6H PRN (Reason: severe pain (scale score 7-10)) Qty: 12 0RF Rx Instructions: Partial Fill upon patient request.
== END 2023-12-08 08:10 | disposition home or self-care (01) ==
PROVIDERS: Emergency Provider Emergency Medicine Emergency Medical Services; PCP Internal Medicine Geriatric Medicine
DX: S02.5XXA Fracture of tooth (traumatic), initial encounter for closed fracture (principal); R68.84 Jaw pain; X58.XXXA Exposure to other specified factors, initial encounter; Y93.9 Activity, unspecified; Y92.9 Unspecified place or not applicable; Y99.8 Other external cause status; Z79.899 Other long term (current) drug therapy
CPT/HCPCS: 36415; 80053; 80061; 82043; 82570; 99283; 99284

== ENCOUNTER 2023-12-08 08:35 | Outpatient (REF) | payer MEDICARE, MEDICAID, SELFPAY ==
[2023-12-08 11:52] LABS: Alanine Aminotransferase 24 U/L (0-40); Albumin Level 4.2 g/dL (3.5-5.0); Alkaline Phosphatase 152 U/L (39-117); Anion Gap 10 (12-20); Aspartate Amino Transferase 18 U/L (5-37); Bilirubin Total 0.5 mg/dL (0.0-1.0); Blood Urea Nitrogen 9 mg/dL (9-16); Calcium 10.1 mg/dL (8.4-10.2); Carbon Dioxide 28 mmol/L (22-29); Chloride 106 mmol/L (96-108); Cholesterol 141 mg/dL (<200); Estimated Glomerular Filt Rate > 60; Glucose Random 167 mg/dL (60-115); HDL Cholesterol 38 mg/dL (>40); LDL Cholesterol Calculated 83 mg/dL (<100); Potassium 3.9 mmol/L (3.3-5.1); Sodium 140 mmol/L (135-145); Total Protein 7.5 g/dL (6.5-8.0); Triglycerides 103 mg/dL (<150)
[2023-12-08 12:40] LABS: Creatinine Urine 105.47 mg/dL; Microalbum/Creatinine Ratio Ur 4.7 ug/mg cr (<30)
== END 2023-12-08 08:36 | disposition home or self-care (01) ==
LOC: HO.HHCL 08:35
PROVIDERS: Visit Provider Internal Medicine Geriatric Medicine
DX: Z13.89 Encounter for screening for other disorder (principal)
CPT/HCPCS: 36415; 80053; 80061; 82043; 82570

== ENCOUNTER 2024-02-23 12:15 | Outpatient (REF) | payer MEDICARE, MEDICAID, SELFPAY ==
[2024-02-23 15:15] LABS: Folate 12.6 ng/mL (> or = 4.0); Vitamin B12 433 pg/mL (200-900)
== END 2024-02-23 12:16 | disposition home or self-care (01) ==
LOC: HO.HHCL 12:15
PROVIDERS: Visit Provider Internal Medicine Geriatric Medicine
DX: G57.93 Unspecified mononeuropathy of bilateral lower limbs (principal)
CPT/HCPCS: 36415; 82607; 82746

== ENCOUNTER 2024-05-04 10:06 | Outpatient (REF) | payer MEDICARE, MEDICAID, SELFPAY ==
[2024-05-04 11:35] LABS: Anion Gap 9 (12-20); Blood Urea Nitrogen 7 mg/dL (9-16); Calcium 9.7 mg/dL (8.4-10.2); Carbon Dioxide 30 mmol/L (22-29); Chloride 108 mmol/L (96-108); Estimated Glomerular Filt Rate > 60; Glucose Random 86 mg/dL (60-115); Potassium 4.5 mmol/L (3.3-5.1); Sodium 142 mmol/L (135-145)
== END 2024-05-04 10:07 | disposition home or self-care (01) ==
LOC: HO.HHCL 10:06
PROVIDERS: Visit Provider Internal Medicine Geriatric Medicine
DX: R29.898 Other symptoms and signs involving the musculoskeletal system (principal); M79.10 Myalgia, unspecified site
CPT/HCPCS: 36415; 80048; 82550

== ENCOUNTER 2024-08-01 09:38 | Outpatient (REF) | payer MEDICARE, MEDICAID, SELFPAY ==
[2024-08-01 15:36] LABS: TSH reflex Free T4 < 0.01 uIU/mL (0.32-4.0)
[2024-08-01 17:25] LABS: Free T4 (Free Thyroxine) 2.69 ng/dL (0.71-1.85)
== END 2024-08-01 09:39 | disposition home or self-care (01) ==
LOC: HO.HHCL 09:38
PROVIDERS: Visit Provider Internal Medicine Geriatric Medicine
DX: R25.1 Tremor, unspecified (principal); R00.0 Tachycardia, unspecified
CPT/HCPCS: 36415; 84439; 84443

== ENCOUNTER 2025-01-04 09:36 | Outpatient (REF) | payer MEDICARE, MEDICAID, SELFPAY ==
--- OUTSIDE RECORDS SUMMARY | 2025-01-04 10:43 | XMS_ITS | Encounter Summary ---
Author Organization [employer] Address [address] [facility] 7t [place] [address] Care Team Providers Care Casting And Curing Operator Name Role Phone Name, Paxton GANT Primary Care Provider [phone] Kathe Soriano PharmD Unavailable [phone] Reason for Visit * Reason Comments Med Refill Encounter Details Date Type Department Care Team (Late st Contact Info) Description 06/07/[address] [facility] [address] [place], [place] [id number] Name, MD Paxton [address] [place] [address] Neuropathic pain, leg, bilateral Social History Tobacco Use Types Packs/Day Years Used Date Smoking Tobacco: Former Smokeless Tobacco: Never Alcohol Use Standard Drinks/Week Comments Never 0 (1 standard drink = 0.6 oz pur e alcohol) Alcohol Answer Date Recorded Frequency of Alcohol Consumption Not on file 05/04/2024 Average Number of Drinks Not on file 024 Frequency of Binge Drinking Not on file 04/2024 Score 0 05/04/2024 Depression Answer Date Recorded Patient Health Questionnaire-9 Score 0 12/07/2023 Patient Health Questionnaire-9 Score 0 12/07/2023 Last PHQ-9: Questionnaire Data Not on file 0 12/07/2023 Housing Stability Answer Date Recorded What is your housing situation today? I have spencer castillo 07/15/[address] you li ve. Do you have problems with any of the following? None of the above 07/15/2023 Food Insecurity Answer Date Recorded Within the past 12 months, y ou worried that your food would run out before you got money to buy more: Sometimes True 2022 Within the past 12 months,th e food you bought just didn't last and you didn't have enough money to get more: Sometimes True 09/03/2023 Transportation Answer Date Recorded In the past 12 months, has l ack of transportation kept you from medical appts, meetings, work or from getting things needed for daily living? No 07/15/2023 Utilities Answer Date Recorded In the past 12 months, has t he electric, gas, oil or water company threatened to shut off services in your home? I am not sure 09/03/2023 Depression Answer Date Recorded Patient Health Questionnaire-2 Score 0 12/07/2023 Sex and Gender Information Value Date Recorded Sex Assigned at Male 07/27/2022 10:27 AM EDT Legal Sex Male 10:27 AM EDT Gender Identity Male 07/27/2022 10:27 AM EDT Sexual Orientation Choose not to disclose 2021 10:27 AM EDT documented as of this encounter Plan of Treatment Upcoming Encounters Date Type Department Care Team (Late st Contact Info) Description 02/22/2025 11:15 AM EDT Office Visit [facility] [address] [place] [id number] Name, MD Paxton [address] [place] [address] documented as of this encounter Goals Goal Patient Goal Type Associated Problems Recent Progress Patient-Stated? Author Blood Pressure < 140/90 Blood Pressure 147/79(2024 9:22 AM EDT) No Puia, Kathe, PharmD Hemoglobin A1c < 7 Result Component 5.6( 9:08 AM EDT) No Puia, Kathe, PharmD documented as of this encounter Visit Diagnoses Diagnosis Neuropathic pain, leg, bilateral documented in this encounter Additional Health Concerns Assessment Noted Time PHQ-9 Depression Total Score: 0 12/07/19 24 10:36 AM EDT documented as of this encounter Care Teams Casting And Curing Operator Relationship Specialty Start Date End Date Name, MD Paxton [address] [place] [id number] PCP - General Family Medicine 7/13/16 Kathe Soriano, RimaD [address] [place] [address] Pharmacist Internal Medicine 06/15/22 documented as of this encounter
--- OUTSIDE RECORDS SUMMARY | 2025-01-04 10:43 | XMS_ITS | Patient Health Record ---
Author Organization [facility] Address [address] [place], [place] [id number] Care Team Providers Care Supervisor Metal Furniture Assembly Name Role Phone No, PCP Primary Care Provider [place] Unavailable [phone] Reason For Referral No Information Plan Of Treatment No Information Insurance Providers Payer Name Payer Address Payer Phone Subscriber Number Group Number Insured Name Patient Relationship to Insured Coverage Start Date Coverage End Date [place] Medicaid Standard [address] [place] [address] [id number] Calvin Clark Self - patient is the insured 2
--- OUTSIDE RECORDS SUMMARY | 2025-01-04 10:44 | XMS_ITS | Encounter Summary ---
Author Organization [employer] Address [address] [facility] 7t [place] [address] Care Team Providers Care Automatic Grinding Machine Operator Name Role Phone Paxton Goldstein MD Primary Care Provider [phone] Kathe Soriano PharmD Unavailable [phone] Reason for Referral * Consultation (Routine) - Pending Review Specialty Diagnoses / Procedures Referred By Contac t Referred To Contact Endocrinology Diagnoses Hyperthyroidism Paxton Goldstein MD [address] [place] [address] Phone: tel: fax: Referral ID Status Reason Start Date Expiration Date Visits Requested Visits Authorized [id number] Pending Review Specialty Services Required 01/04/2025 01/04/2026 1 1 * Imaging (Routine) - Authorized Specialty Diagnoses / Procedures Referred By Contac t Referred To Contact Radiology Diagnoses Hyperthyroidism Procedures NM Thyroid Uptake Paxton Goldstein MD [address] [place] [address] Phone: tel: fax: [address] Phone: tel: fax: Referral ID Status Reason Start Date Expiration Date V isits Requested Visits Authorized [id number] Authorized 01/04/2025 01/04/2026 3 3 Reason for Visit * Reason Comments Diabetes Hypertension Encounter Details Date Type Department Care Team (Latest Contact Info) Description 01/04/2025 9:00 AM EDT Office Visit [facility] [address] [facility] [place] [address] Name, MD Paxton [address] [place] [address] Hyperthyroidism (Primary Dx); Type II diabetes mellitus with complication (CMS/HCC); Hypertension, unspecified type Social History Tobacco Use Types Packs/Day Years Used Date Smoking Tobacco: Former Smokeless Tobacco: Never Tobacco Cessation:Counseling Given: Not Answered Alcohol Use Standard Drinks/Week Comments Never 0 [...] AM EDT documented as of this encounter Last Filed Vital Signs Vital Sign Reading Time Taken Comments Blood Pressure 147/79 01/04/2025 9:22 AM EDT Pulse 97 01/04/2025 9:04 AM EDT Temperature 36.4 ??C (97.6 ??F) 01/04/2025 9:04 AM ED T Respiratory Rate 14 01/04/2025 9:04 AM EDT Oxygen Saturation 95% 01/04/2025 9:04 AM EDT Inhaled Oxygen Concentration - - Weight 79.2 kg (174 lb 9.6 oz) 01/04/2025 9:04 A M EDT Height 170.2 cm (5' 7 ) 01/04/2025 9:04 AM EDT Body Mass Index 27.35 01/04/2025 9:04 AM EDT documented in this encounter Progress Notes * Paxton Goldstein MD - 01/04/2025 9:00 AM EDT Images from the original note were not included. Subjective Patient ID: Calvin Clark is a 59 y.o. male who presents for Diabetes and Hypertension. Calvin comes for a follow-up visit. He continues to have symptoms of hyperthyroidism including intolerance to heat, palpitations, hand tremors, increased appetite. He is not losing any weight anymore.He does not have any eye symptoms. He does not have any palpable goiter. He has noted improvement of some of his symptoms with the use of atenolol. Unfortunately he has not seen endocrinology becausehe missed 2 appointments since I referred him back in August. He tells me he is having a lot of problems at home. He had to move because he could not afford the rent. His blood sugar is well-controlled. Blood pressure is slightly elevated today. Review of Systems Constitutional: Negative for chills, fatigue and fever. HENT: Negative for sore throat. Respiratory: Negative for cough, chest tightness and shortness of breath. Cardiovascular: Negative for chest pain, palpitations and leg swelling. Gastrointestinal: Negative for abdominal pain and blood in stool. Endocrine: Positive for heat intolerance and polyphagia. Musculoskeletal: Chronic low back pain Visit Vitals BP (!) 147/79 Pulse 97 Temp 97.6 ??F (36.4 ??C) (Temporal) Resp 14 Ht 5' 7 (1.702 m) Wt 174 lb 9.6 oz (79.2 kg) SpO2 95% BMI 27.35 kg/m?? Smoking Status Former BSA 1.94 m?? Objective Physical Exam Constitutional: Appearance: Normal appearance. Neck: Thyroid: No thyroid mass, thyromegaly or thyroid tenderness. Cardiovascular: Rate and Rhythm: Normal rate and regular rhythm. Heart sounds: No murmur heard. Pulmonary: Effort: Pulmonary effort is normal. No respiratory distress. Breath sounds: No wheezing, rhonchi or rales. Abdominal: Palpations: Abdomen is soft. Tenderness: There is no abdominal tenderness. Musculoskeletal: Right lower leg: No edema. Left lower leg: No edema. Neurological: Mental Status: He is alert. Lab Results Component Value Date TSH <0.01 (L) 08/01/2024 T4, Free Order: [id number] Status: Final result Visible to patient: No (inaccessible in MyChart) 1 Result Note Component Ref Range & Units 5 mo ago Free T4 (Free Thyroxine) 0.71 - 1.85 ng/dL 2.69 High Assessment/Plan Diagnoses and all orders for this visit: Hyperthyroidism Comments: I will proceed with further workup since he has not seen endocrinology since August. He will go for blood work listed below and thyroid uptake scan. I will double his dose of atenolol. The plan is to start on low-dose methimazole. We briefly discussed the benefits and possible side effects of the medication and we will discuss further once we have the results of the blood work ordered today. I will refer him to endocrinology again. Follow up with me next month. Orders: - TSI (Thyroid Stimulating Immunoglobulin); Future - TSH W/Reflex to FT4; Future - NM Thyroid Uptake; Future - CBC auto differential; Future - Comprehensive Metabolic Panel; Future - Referral to Endocrinology; Future Type II diabetes mellitus with complication (CMS/HCC) Comments: Continue Trulicity and metformin. He is on ORQUIDEA inhibitor and statin. Reminded to avoid sweets. Orders: - POCT Glucose - POCT HGB A1C Hypertension, unspecified type Comments: Repeat BP is better. Continue lisinopril and furosemide the same. I doubled the atenolol to controlsymptoms of hyperthyroidism. Other orders - atenolol (Tenormin) 100 MG tablet; Take 1 tablet (100 mg) by mouth Once per day. documented in this encounter Plan of Treatment Upcoming Encounters Date Type Department Care Team (Late st Contact Info) Description 02/22/2025 11:15 AM EDT Office Visit [facility] [address] [place] [address] Paxton Goldstein MD [address] [place] [address] Scheduled Orders Name Type Priority Associated Diagnoses Orde r Schedule TSI (Thyroid Stimulating Immunoglobulin) Lab Routine Hyperthyroidism Expected: 01/04/2025 (Approximate), Expires: 01/04/2026 TSH W/Reflex to FT4 Lab Routine Hyperthyroidism Expected: 01/04/2025 (Approximate), Expires: 01/04/2026 NM Thyroid Uptake Imaging Routine Hyperthyroidism Expected: 01/04/2025, Expires: 01/04/2026 CBC auto differential Lab Routine Hyperthyroidism Expected: 01/04/2025 (Approximate), Expires: 01/04/2026 Comprehensive Metabolic Panel Lab Routine Hyperthyroidism Expected: 01/04/2025 (Approximate), Expires: 01/04/2026 Scheduled Referrals Name Type Priority Associated Diagnoses Order Schedule Referral to Endocrinology Outpatient Referral Routine Hyperthyroidism Expected: 01/04/2025 (Approximate), Expires: 01/04/2026 documented as of this encounter Goals Goal Patient Goal Type Associated Problems Recent Progress Patient-Stated? Author Blood Pressure < 140/90 Blood Pressure 147/79(2024 9:22 AM EDT) No Puia, Kathe, PharmD Hemoglobin A1c < 7 Result Component 5.6( 9:08 AM EDT) No Puia, Kathe, PharmD documented as of this encounter Procedures Procedure Name Priority Date/Time Associated Diagnosis Comments POCT GLYCATED HEMOGLOBIN, TOTAL Routine 01/04/2025 9:08 AM EDT Type II diabetes mellitus with complication (CMS/HCC) POCT GLUCOSE Routine 01/04/2025 9:07 AM EDT Type II diabetes mellitus with complication (CMS/HCC) documented in this encounter Results * POCT HGB A1C (01/04/2025 9:08 AM EDT) Hemoglobin A1C 5.6 4.0 - 6.0 % QC Media Lot # [id number] Lot# Expiration Date [id number] Blood 01/04/2025 9:08 AM EDT Paxton Goldstein MD POINT OF CARE TEST ENTER/EDIT OR DERABLES Final Result * POCT Glucose (01/04/2025 9:07 AM EDT) Glucose Blood, POC 105 60 - 200 mg/dL QC Media Lot # [id number] Lot# Expiration Date 82,625 Blood Capillary blood specimen / Unknown 01/04/2025 9:07 AM EDT Paxton Goldstein MD POINT OF CARE TEST ENTER/EDIT OR DERABLES Final Result documented in this encounter Visit Diagnoses Diagnosis Hyperthyroidism- Primary Thyrotoxicosis without mention of goiter or other cause, without mention of thyrotoxic crisis or storm Type II diabetes mellitus with complication (CMS/HCC) Type II or unspecified type diabetes mellitus with unspecified complication, not stated as uncontrolled Hypertension, unspecified type documented in this encounter Additional Health Concerns Assessment Noted Time PHQ-9 Depression Total Score: 0 12/07/19 24 10:36 AM EDT documented as of this encounter Care Teams Automatic Grinding Machine Operator Relationship Specialty Start Date End Date Name, MD Paxton [address] [place] [address] PCP - General Family Medicine 04/08/16 Kathe Soriano PharmD [address] [place] [address] Pharmacist Internal Medicine 06/15/22 documented as of this encounter
--- OUTSIDE RECORDS SUMMARY | 2025-01-04 10:44 | XMS_ITS | Encounter Summary ---
Author Organization [employer] Address [address] [facility] 7t [place] [address] Care Team Providers Care Contracts Intern Name Role Phone NamePaxton MD Primary Care Provider [phone] Kathe Soriano PharmD Unavailable [phone] Encounter Details Date Type Department Care Team ([facility] Contact Info) Description 11/27/2022 Orders Only [facility] [address] [place] [phone] Kristin Collazo FNP [address] [place] [address] Social History Tobacco Use Types Packs/Day Years Used Date Smoking Tobacco: Former Cigarettes Smokeless Tobacco: Never Depression Answer Date Recorded Patient Health Questionnaire-9 Score 0 09/09/2022 Depression Answer Date Recorded Patient Health Questionnaire-2 Score 0 09/09/2022 Sex and Gender Information Value Date Recorded Sex Assigned at Male 07/27/2022 10:27 AM EDT Legal Sex Male 10:27 AM EDT Gender Identity Male 07/27/2022 10:27 AM EDT Sexual Orientation Choose not to disclose 2021 10:27 AM EDT COVID-19 Exposure Response Date Recorded In the last 10 days, have yo u been in contact with someone who was confirmed or suspected to have Coronavirus/COVID-19? No / Unsure 11/27/2022 8:49 AM EST documented as of this encounter Plan of Treatment Upcoming Encounters Date Type Department Care Team ([facility] Contact Info) Description 02/22/2025 11:15 AM EDT Office Visit [facility] [address] [place] [phone] Name, MD Paxton [address] [place] [phone] documented as of this encounter Visit Diagnoses Not on filedocumented in this encounter Additional Health Concerns Assessment Noted Time PHQ-9 Depression Total Score: 0 09/09/20 10:25 AM EST documented as of this encounter Care Teams Contracts Intern Relationship Specialty Start Date End Date Name, MD Paxton [address] [place] [id number] PCP - General Family Medicine 04/08/16 Kathe Soriano PharmD [address] [place] [phone] Pharmacist Internal Medicine 06/15/22 documented as of this encounter
--- OUTSIDE RECORDS SUMMARY | 2025-01-04 10:44 | XMS_ITS | Clinical Summary ---
Author Organization [employer] Address [address] [facility] 7[address] [place] [address] Care Team Providers Care Strike Out Machine Operator Name Role Phone Name, Paxton GANT Primary Care Provider [phone] Kathe Soriano PharmD Unavailable [phone] Allergies No known active allergies Medications omega-3 (Fish Oil) 1000 MG capsule Take 2 capsules by mouth every 12 (twelve) hours. Active polyvinyl alcohol (Liquifilm Tears) 1.4 % ophthalmic solution Administer into both eyes in the morning, at noon, in the evening, and at bedtime. 020 Active albuterol 108 (90 Base) MCG/ACT inhaler Inhale 2 puffs every 4 (four) hours if needed. 020 Active Blood Pressure kit Use to check blood pressure daily as directed 022 Active Blood Glucose Monitoring Suppl (FreeStyle Lite) device Inject under the skin if needed. Use as instructed Active traZODone (Desyrel) 50 MG tablet Take 1 tablet by mouth if needed at bedtime. 023 Active hydrOXYzine HCl (Atarax) 25 MG tablet Take 1 tablet by mouth twice daily as needed for anxiety 023 Active TRUEplus Glucose On The Go 4 g chewable tablet CHEW 4 TABLETS NEEDED FOR low blood sugar (LESS THAN 70mg/dL) 20 tablet 5 023 Active Diclofenac Sodium (Voltaren) 1 % gel Apply once a day to the affected skin 50 g 1 023 Active ammonium lactate (Amlactin) 12 % cream APPLY TO THE AFFECTED AREA(S) LIBERALLY DAILY DIRECTED 420 g 3 023 Active fluticasone (Flovent) 220 MCG/ACT inhaler INHALE 1 PUFF BY MOUTH TWICE DAILY, RINSE MOUTH AFTER USING 12 g 5 023 Active fluticasone (Flonase) 50 MCG/ACT nasal sprayIndications :Allergic rhinitis, unspecified seasonality, unspecified trigger INSTILL 2 SPRAYS IN EACH NOSTRIL ONCE DAILY 48 g 023 Active acetaminophen (Tylenol) 500 MG tablet Take 1 tablet (500 mg) by mouth every 8 (eight) hours if needed for moderate pain or fever. 30 tablet 023 Active clonazePAM (KlonoPIN) 0.5 MG tablet Take 0.5 mg by mouth if needed in the morning and at bedtime. Active sertraline (Zoloft) 50 MG tablet Take 50 mg by mouth in the morning. 024 Active albuterol (2.5 MG/3ML) 0.083% nebulizer solutionIndicati ons:Unspecified asthma, uncomplicated USE 1 AMPULE USING A NEBULIZER FOUR TIMES DAILY 270 mL 3 024 Active metFORMIN (Glucophage) 850 MG tabletIndication s:Type II diabetes mellitus with complication (CMS/HCC) TAKE 1 TABLET BY MOUTH TWICE DAILY IN THE MORNING AND IN THE EVENING WITH MEALS 60 tablet 11 024 Active cyanocobalamin (Vitamin B-12) 1000 MCG tablet TAKE 1 TABLET BY MOUTH EVERY MORNING 90 tablet 3 024 Active Pulmicort Flexhaler 180 MCG/ACT inhaler INHALE 2 PUFFS BY MOUTH TWICE DAILY IN THE MORNING AND AT BEDTIME, RINSE MOUTH AFTER USING. DO NOT SWALLOW 1 each 1 024 Active pravastatin (Pravachol) 40 MG tablet Take 1 tablet (40 mg) by mouth Once per day. 30 tablet 024 2024 Active lisinopril 40 MG tabletIndication s:Primary hypertension,Typ e II diabetes mellitus with complication (CMS/HCC) TAKE 1 TABLET BY MOUTH ONCE DAILY 30 tablet 11 024 Active aspirin 81 MG EC tabletIndication s:Type II diabetes mellitus with complication (CMS/HCC) Take 1 tablet (81 mg) by mouth Once daily. 90 tablet 3 024 Active naloxone (Narcan) 4 mg/0.1 mL nasal sprayIndications :Chronic low back pain, unspecified back pain laterality, unspecified whether sciatica present Administer 1 spray (4 mg) into affected nostril(s) if needed for opioid reversal. In 1 nostril may repeat dose every 2-3 minutes as needed alternating nostrils with each dose. 2 each 2 024 Active Trulicity 0.75 MG/0.5ML solution auto-injector INJECT ONE PEN (=0.75MG) SUBCUTANEOUSLY ONCE A WEEK DIRECTED 2 mL 5 Active glucose blood (FREESTYLE LITE) test stripIndications :Type II diabetes mellitus with complication ([facility]) Use to test blood sugar once daily as directed 100 strip 5 Active TRUEplus Lancets 33G miscIndications: Type II diabetes mellitus with complication ([facility]) USE DIRECTED TO TEST BLOOD SUGAR ONCE DAILY 100 each 5 Active montelukast (Singulair) 10 MG tabletIndication s:Allergic rhinitis, unspecified seasonality, unspecified trigger TAKE 1 TABLET BY MOUTH EVERY EVENING 90 tablet 1 024 Active furosemide (Lasix) 20 MG tabletIndication s:Allergic rhinitis, unspecified seasonality, unspecified trigger TAKE 1 TABLET BY MOUTH EVERY DAY 90 tablet 1 024 Active sildenafil (Viagra) 50 MG tabletIndication s:Peroneal neuropathy, unspecified laterality TAKE 1 TABLET 1 HOUR BEFORE SEXUAL RELATIONS ONCE DAILY NEEDED. 12 tablet 2 Active oxyCODONE-acetam inophen (Percocet) 5-325 MG tabletIndication s:Neuropathic pain, leg, bilateral Take 1 tablet by mouth every 12 (twelve) hours if needed for severe pain for up to 18 days. 36 tablet 025 2024 Active atenolol (Tenormin) 100 MG tablet Take 1 tablet (100 mg) by mouth Once per day. 30 tablet 025 2025 Active atenolol (Tenormin) 50 MG tablet Take 1 tablet (50 mg) by mouth Once per day. 30 tablet 025 2024 Discontinued(D ose adjustment) oxyCODONE-acetam inophen (Percocet) 5-325 MG tabletIndication s:Neuropathic pain, leg, bilateral Take 1 tablet by mouth every 12 (twelve) hours if needed for severe pain for up to 7 days. 14 tablet 025 2024 Discontinued(R eorder (will not trigger notification to Pharmacy)) erythromycin (Romycin) 5 MG/GM ophthalmic ointmentIndicati ons:Hordeolum externum of left lower eyelid Apply to affected eye(s) 4 times daily for 10 days. Apply Amount per Dose: 0.5 inch (~1 cm) per dose. 3.5 g 025 2024 oxyCODONE-acetam inophen (Percocet) 5-325 MG tabletIndication s:Neuropathic pain, leg, bilateral Take 1 tablet by mouth every 12 (twelve) hours if needed for severe pain for up to 5 days. 10 tablet 025 2024 Discontinued(R eorder (will not trigger notification to Pharmacy)) Active Problems Problem Noted Date Diagnosed Date Allergy to pollen 01/04/2025 Long-term current use of opiate analgesic 2024 Overview (10/31/2024): Medication: Percocet 5-325 mg Q12H Indication: lumbar disc bulge, bilateral neuropathic leg pain Last DINKEY DISPATCHER Agreement: Hyperthyroidism 08/02/2024 Dental caries 04/01/2023 Sciatica 04/01/2023 Hypertension 11/27/2022 Assessment & Plan (12/12/2024 5:06 PM EDT): Today patient's blood pressure is elevated, he tells me blood pressure at home is always okay but when he comes to doctors offices it gets high, suspected whitecoat syndrome I advised to take her medications every day and low-sodium diet Follow-up with PCP 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 -Encouraged multifactorial approach to pain control including pharm and non- pharm modalities -UTOX as expected, forgot pills. See electric frying pan repairer Recurrent falls 01/27/2017 Urinary incontinence 01/27/2017 ED (erectile dysfunction) of organic origin 08/28 Chronic low back pain 05/15/2016 Overview (10/31/2024): MRI lumbar spine 02/29/24: Demonstrated mild disc bulge from L3-4, L4-5, L5-S1. Changes predominantly in the lower lumbar spine with narrowing of the neuro foramina greater at locations listed above. Anxiety 04/08/2016 Diabetic polyneuropathy 04/08/2016 Obesity 04/08/2016 Type 2 diabetes mellitus 04/08/2016 Resolved Problems Problem Noted Date Diagnosed Date Resolved Date Hyperglycemia 01/04/2025 01/04/2025 Hyperlipidemia 01/04/2025 01/04/2025 Hordeolum externum of left lower eyelid 12/12/2024 01/04/2025 Assessment & Plan (12/12/2024 5:05 PM EDT): Apply warm compresses 3-4 times daily I will prescribe for patient erythromycin ointment Contusion of knee 04/01/2023 02/23/2024 Knee sprain 04/01/2023 02/23/2024 Lumbar paraspinal muscle spasm 04/01/2023 02/23/2024 Right facial pain 04/01/2023 01/04/2025 Toothache 04/01/2023 02/23/2024 Cramps, muscle, general 12/21/201701/26 Pneumonia due to infectious organism 05/20/2017 01/04/2025 Paraparesis 01/27/2017 01/04/2025 Encounters Date Type Department Care Team Description 01/04/2025 9:00 AM EDT Office Visit [facility] [address] [place], [place] [id number] Paxton Goldstein MD Hyperthyroidism (Primary Dx); Type II diabetes mellitus with complication ([facility]); Hypertension, unspecified type 01/04/2025 Travel 12/18/2024 Refill [facility] [address] [place] [address] Paxton Goldstein MD Neuropathic pain, leg, bilateral 12/13/2024 Refill [facility] [address] [place], [place] [phone] Paxton Goldstein MD Neuropathic pain, leg, bilateral 12/12/2024 2:40 PM EDT Office Visit [facility] [address] [place] [address] Misty Saenz MD Hordeolum externum of left lower eyelid (Primary Dx); Hypertension, unspecified type 12/11/2024 Telephone [facility] [address] [place], [place] [phone] Paxton Goldstein MD Nurse Triage 12/08/2024 Population Health Risk Score [facility] () Department [address] [place] [phone] Provider, Population Health Generic 12/05/2024 Refill [facility] [address] [place] [address] Paxton Goldstein MD Neuropathic pain, leg, bilateral 11/21/2024 Refill [facility] [address] [place], [place] [phone] Paxton Goldstein MD Neuropathic pain, leg, bilateral 11/11/2024 Refill [facility] [address] [place] [address] Paxton Goldstein MD Peroneal neuropathy, unspecified laterality 10/26/2024 Telephone [facility] [address] [place] [address] Nadira Singleton, RN Percocet pill count 10/25/2024 Telephone [facility] [address] [place] [address] Nadira Singleton, RN Percocet pill count 10/25/2024 Telephone [facility] [address] [place] [address] Paxton Goldstein MD TC-JOINT INJECTION 10/24/2024 11:00 AM EST Office Visit [facility] [address] [place] [address] Kristin Collazo, ACCOUNT INSTALLER Chronic low back pain, unspecified back pain laterality, unspecified whether sciatica present (Primary Dx); Numbness of lower limb; Long-term current use of opiate analgesic 10/24/2024 Telephone [facility] [address] [place] [address] Nadira Singleton, BALJINDER Forgot Percocet 10/24/2024 Travel 10/23/2024 Refill [facility] [address] [place] [address] Paxton Goldstein MD Neuropathic pain, leg, bilateral 10/20/2024 9:15 AM EST Office Visit [facility] [address] [place] [address] Paxton Goldstein MD Hyperthyroidism (Primary Dx); Type II diabetes mellitus with complication ([facility]); Chronic right shoulder pain 10/19/2024 Telephone [facility] [address] [place] [address] Eveline Adler, ROZINA 10/13/2024 Telephone [facility] [address] [place] [address] [place] DME Renewal from [employer] from Last 3 Months Immunizations Name Administration Dates Next Due Hep B, adult 08/31/2023,08/03/2023 Influenza injectable quadriv alent IIV4 with preservative 06/23/2018,07/06/2017,06/19/2016 Influenza injectable quadriv alent preservative free 08/03/2023,06/08/2022,09/17/2021,11/01,06/21/2019,09/06/2015 Influenza, High Dose Seasona l, Preservative Free 07/12/2024 Influenza, IIV3, injectable 09/06/2015,1 ,07/04/2013,07/22,12/10/2009 Moderna Covid-19 Vaccine 12+ 02/17/2022, 09/17/2021,03/06/2021,02/06 Pfizer Covid-19 Vaccine 12+ 07/12/2024, 3 Pneumococcal Conjugate PCV 20 06/15/2022 Pneumococcal Polysaccharide PPSV23 06/23/2018 TD (adult), 2 Lf tetanus tox oid, preservative free, adsorbed 04/14/2019 Tdap 10/28/2010,12/10/2009 Zoster, Recombinant 08/24/2022,06/15/2022 Family History Medical History Relation Name Comments Glaucoma Mother Relation Name Status Comments Mother Social History Tobacco Use Types Packs/Day Years [...] not to disclose 2021 10:27 AM EDT Last Filed Vital Signs Vital Sign Reading [...] Mass Index 27.35 01/04/2025 9:04 AM EDT Plan of Treatment Upcoming Encounters Date Type Department Care Team (Late st Contact Info) Description 02/22/2025 11:15 AM EDT Office Visit [facility] [address] [place] [address] Name, MD Paxton [address] [place] [address] Health Maintenance Due Date Last Done Comments CT Colonography 1967 Colonoscopy 1967 Colorectal Cancer Screening 1967 FIT DNA/Cologuard 1967 FIT 1967 FOBT 1967 HIV Screening 1967 Sigmoidoscopy 1967 Hepatitis C Screening 1985 Dental Prophylaxis 06/27/2021 12/24/2020, 2014 Dental Oral Exam 09/02/2023 03/02/2023, , 2014 Dental X-Ray: Full Mouth 12/26/2023 12/24/2020, 10/29 Hepatitis B Vaccines (3 of 3 - 19+ 3-dose series) 02/01/2024 08/31/2023, 08/03/2023 Eye Exam 02/02/2024 02/01/2023, 0504/2023, 02/01/2023, Additional history exists Dental X-Ray: Bitewings 03/03/2024 03/02/20 23, 12/24/2020, 12/05/2020, Additional history exists Diabetes: Foot Exam 08/03/2024 08/03/2023, 08/03/2023, 08/03/2023, Additional history exists SDOH Screening 09/03/2024 09/03/2023 Depression Screening 12/06/2024 12/07/2023, 12/07/19 24 Diabetes: Urine Protein Screening 12/07/2024 12/08/2023, 12/21/2022, 02/11/2022, Additional history exists Lipid Panel 12/07/2024 12/08/2023, 07/30, 02/11/2022, Additional history exists Alcohol/Substance Use Screening 05/04/2025 05/04/2024 Diabetes: Hemoglobin A1C 07/06/2025 025, 06/06/2024, 12/07/2023, Additional history exists Tobacco Screening 01/04/2026 01/04/2025 DTaP/Tdap/Td Vaccines (4 - Td or Tdap) 04/14/2029 04/14/2019, 10/28/2010, 12/10/2009 RSV Patients and Patients Aged 60 years or older (1 - 1-dose 75+ series) 2042 Pneumococcal Vaccine: 50+ Years Completed 06/15/2022, 06/23/2018 Zoster Vaccines Completed 08/24/2022, 06/15/2022 COVID-19 Vaccine Completed 07/12/2024, 03/2023, 02/17/2022, Additional history exists Influenza Vaccine Completed 07/12/2024, , 06/08/2022, Additional history exists HIB Vaccines Aged Out No longer eligi ble based on patient's age to complete this topic HPV Vaccines Aged Out No longer eligi ble based on patient's age to complete this topic Hepatitis A Vaccines Aged Out No long er eligible based on patient's age to complete this topic IPV Vaccines Aged Out No longer eligi ble based on patient's age to complete this topic Meningococcal Vaccine Aged Out No telma yenifer eligible based on patient's age to complete this topic RSV under 20 months Aged Out No longe r eligible based on patient's age to complete this topic Rotavirus Vaccines Aged Out No longer eligible based on patient's age to complete this topic Goals Goal Patient Goal Type Associated Problems Recent Progress Patient-Stated? Author Blood Pressure < 140/90 Blood Pressure 147/79(2024 9:22 AM EDT) No Kathe Soriano PharmD Hemoglobin A1c < 7 Result Component 5.6( 9:08 AM EDT) No Kathe Soirano PharmD Procedures Procedure Name Priority Date/Time Associated Diagnosis Comments POCT GLYCATED HEMOGLOBIN, TOTAL Routine 01/04/2025 9:08 AM EDT Type II diabetes mellitus with complication (CMS/HCC) POCT GLUCOSE Routine 01/04/2025 9:07 AM EDT Type II diabetes mellitus with complication (CMS/HCC) POCT CAYLA-14 URINE DRUG SCREEN Routine 10/24/2024 2:22 PM EST Chronic low back pain, unspecified back pain laterality, unspecified whether sciatica present POCT GLUCOSE Routine 10/20/2024 9:22 AM EST Type II diabetes mellitus with complication (CMS/HCC) ALBUMIN, RANDOM URINE W/CREATININE Routine 12/08/2023 8:37 AM EDT Type II diabetes mellitus with complication (CMS/HCC) Hypertension, unspecified type LIPID PANEL, STANDARD Routine 12/08/2023 8:37 AM EDT Type II diabetes mellitus with complication (CMS/HCC) Hypertension, unspecified type BITEWINGS - 4 RADIOGRAPHIC IMAGES Routine 03/02/2023 9:30 AM EDT PERIODIC ORAL EVALUATION - ESTABLISHED PATIENT Routine 03/02/2023 9:30 AM EDT PROPHYLAXIS - ADULT Routine 12/24/2020 1 2:00 AM EDT INTRAORAL - COMPLETE SERIES OF RADIOGRAPHIC IMAGES Routine 12/24/2020 12:00 AM EDT from Last 3 Months or Most Recently Relevant to Health Maintenance Results * POCT HGB A1C (01/04/2025 9:08 AM EDT) Pathologist [facility] Hemoglobin A1C 5.6 4.0 - 6.0 % QC Media Lot # [id number] Lot# Expiration Date [id number] Blood 01/04/2025 9:08 AM EDT Paxton Goldstein MD POINT OF CARE TEST ENTER/EDIT OR DERABLES Final Result * POCT Glucose (01/04/2025 9:07 AM EDT) Only the most recent of2 resultswithin the time period is included. Pathologist [facility] Glucose Blood, POC 105 60 - 200 mg/dL QC Media Lot # [id number] Lot# Expiration Date [id number] Blood Capillary blood specimen / Unknown 01/04/2025 9:07 AM EDT Result [facility] Paxton Goldstein MD POINT OF CARE TEST ENTER/EDIT OR DERABLES Final Result * POCT CAYLA-14 Urine Drug Screen (10/24/2024 2:22 PM EST) Pathologist [facility] Oxycodone Screen, Urine Positive Urine Urine specimen obtained by clean catch procedure / Unknown 10/24/2024 2:22 PM EST Kristin Collazo ACCOUNT INSTALLER POINT OF CARE TEST ENTER/EDIT ORDERABLES Final Result * Albumin, Random Urine W/Creatinine (12/08/2023 8:37 AM EDT) Pathologist [facility] Creatinine, Urine 105.47 mg/dL [facility] Microalbumin Urine 5.0 mg/L [facility] Microalbum Creatinine Ratio Ur 4.7 <30 ug/mg cr [facility] Comment:Albumin/Creatinine R atio Reference Ranges: Normal: < 30 ug/mg creatinine Microalbuminuria: 30 - 300 ug/mg creatinineClinical Albuminuria: > 300 ug/mg creatinine Urine (Urine, Random) 12/08/2023 8:37 AM EDT 12/08/2023 11:26 AM EDT us Paxton Goldstein MD LAB URINE ORDERABLES Final Resul t Performing Organization Address [facility] de Phone Number [facility] [address] [place] [phone] * (ABNORMAL) Lipid Panel, Standard (12/08/2023 8:37 AM EDT) Triglycerides 103 <150 mg/dL [facility] Comment:Desirable Triglyceri de: less than 150 mg/dLBorderline High Triglyceride 150-199 mg/dLHigh Triglyceride: 200-499 mg/dLVery High Triglyceride: greater than or equal to 5OO mg/dL Cholesterol 141 <200 mg/dL [facility] Comment:Desirable Cholestero l: less than 200 mg/dLBorderline High Cholesterol: 200-239 mg/dLHigh Cholesterol: greater than 239 mg/dL LDL Cholesterol Calculated 83 <100 mg/dL [facility] Comment:Desirable LDL: less than 100 mg/dLNear Optimal/Above Optimal LDL: 110- 129 mg/dLBorderline High LDL: 130-159 mg/dLHigh LDL: 160-189 mg/dLVery High LDL: greater than or equal to 190 mg/dL HDL Cholesterol 38(L) >40 mg/dL [facility] Comment:Desirable HDL: great er than 40 mg/dL Note: This HDL assay may give artificially low results in patients with liver disease. Blood Venous blood specimen / Unknown 12/08/2023 8:37 AM EDT 12/08/2023 11:16 AM EDT us Paxton Goldstein MD LAB BLOOD ORDERABLES Final Resul t Performing Organization Address [facility] Co de Phone Number [facility] [address] [place] [phone] from Last 3 Months or Most Recently Relevant to Health Maintenance Insurance [facility] STANDARD DENTAL-[facility] MEDICAID STAND ADULT Care Teams Strike Out Machine Operator Relationship Specialty Start Date End Date Name, MD Paxton [address] [place] [address] PCP - General Family Medicine 04/08/16 Kathe Soriano PharmD [address] [place] [address] Pharmacist Internal Medicine 06/15/22
--- OUTSIDE RECORDS SUMMARY | 2025-01-04 10:44 | XMS_ITS | Encounter Summary ---
Author Organization [employer] [facility] Address [address] [place] [address] [address] [place] [address] Care Team Providers Care Steel Spar Operator Name Role Phone NamePaxton MD Primary Care Provider [phone] Kathe Soriano PharmD Unavailable [phone] Encounter Details Date Type Department Care Team (Latest Contact Info) Description 12/24/2020 Abstract [facility] CONVERSIONS Dental, Provider, DDS Social History Tobacco Use Types Packs/Day Years Used Date Smoking Tobacco: Never Assessed Sex and Gender Information Value Date Recorded [...] Description 02/22/2025 11:15 AM EDT Office Visit [facility] [address] [place] [address] Paxton Goldstein MD [address] [place] [address] documented as of this encounter Visit Diagnoses Not on filedocumented in this encounter Care Teams Steel Spar Operator Relationship Specialty Start Date End Date Paxton Goldstein MD [address] [place] [address] PCP - General Family Medicine 04/08/16 Kathe Soriano, PharmD [address] [place] [address] Pharmacist Internal Medicine 06/15/22 documented as of this encounter
--- OUTSIDE RECORDS SUMMARY | 2025-01-04 10:44 | XMS_ITS | Encounter Summary ---
Author Organization [employer] Address [address] [facility] [address]t [place] [address] Care Team Providers Care Special Police Officer Name Role Phone Name, Paxton GANT Primary Care Provider [phone] Kathe Soriano PharmD Unavailable [phone] Reason for Visit * Reason Comments Med Refill Encounter Details Date Type Department Care Team ([facility] st Contact Info) Description 02/29/2024 Refill [facility] [address] [place], [place] [phone] Name, MD Paxton [address] [place] [address] Peroneal neuropathy, unspecified laterality Social History Tobacco Use Types Packs/Day Years Used Date Smoking Tobacco: Former Smokeless Tobacco: Never Alcohol Use Standard Drinks/Week Comments Never 0 (1 standard drink = 0.6 oz pur e alcohol) Depression Answer Date Recorded Patient Health Questionnaire-9 [...] Description 02/22/2025 11:15 AM EDT Office Visit [facility] [address] [place] [phone] Name, MD Paxton [address] [place] [phone] documented as of this encounter Goals Goal Patient Goal Type Associated Problems Recent Progress Patient-Stated? Author Blood Pressure < 140/90 Blood Pressure 147/79(2024 9:22 AM EDT) No Puia, Kathe, PharmD Hemoglobin A1c < 7 Result Component 5.6( 9:08 AM EDT) No Puia, Kathe, PharmD documented as of this encounter Visit Diagnoses Diagnosis Peroneal neuropathy, unspecified laterality documented in this encounter Additional Health Concerns Assessment Noted Time PHQ-9 Depression Total Score: 0 12/07/19 24 10:36 AM EDT documented as of this encounter Care Teams Special Police Officer Relationship Specialty Start Date End Date Name, MD Paxton [address] [place] [address] PCP - General Family Medicine 04/08/16 Puia, Kathe, PharmD [address] [place] [phone] Pharmacist Internal Medicine 06/15/22 documented as of this encounter
--- OUTSIDE RECORDS SUMMARY | 2025-01-04 10:44 | XMS_ITS | Encounter Summary ---
Author Organization [employer] Address [address] [facility] 7[address] [place] [address] Care Team Providers Care Platform Worker Name Role Phone Name, Paxton GANT Primary Care Provider [phone] Kathe Soriano PharmD Unavailable [phone] Reason for Visit * Reason Onset Date Comments Med Refill PCP no longer prescribing Percocet 11/04/2022 Reminded pt of our previous conversation 10/28/22 about being weaned off Percocet. See note Encounter Details Date Type Department Care Team (Late st Contact Info) Description 11/04/2022 Telephone [facility] [address] [place], [place] [phone] Name, MD Paxton [address] [place], [place] [phone] Med Refill; PCP no longer prescribing Percocet (Reminded pt of our previous conversation 10/28/22 about being weaned off Percocet. See note) Social History Tobacco Use Types Packs/Day Years [...] AM EDT documented as of this encounter Miscellaneous Notes * Telephone Encounter - Nadira Singleton RN - 11/04/2022 8:35 AM EST TC via PI# [id number], pt called asking for refill of Percocet medication. Reminded pt of our phone conversation 10/28/22 where it was explained to pt that PCP will no longer prescribe Percocet for him andstarted his taper dosing on 10/22/22. Pt asking what he should do for his pain. Pt then stated he keeps having to go to hospital ER because his finds him on the floor. Pt stated he went to ER yesterday. Asked pt which hospital ER did he go to yesterday? Pt then stated the ER wont give him anything for his pain either. Repeated question about what ER did he go to yesterday? Pt stated that he respected this writers opinion but would wait to speak to his doctor, then pt ended the phone call abruptly. Will FYI PCP. documented in this encounter Plan of Treatment Upcoming Encounters Date Type Department Care Team (Late st Contact Info) Description 02/22/2025 11:15 AM EDT Office Visit [facility] [address] [place] [phone] Name, MD Paxton [address] [place] [address] documented as of this encounter Visit Diagnoses Diagnosis Chronic low back pain, unspecified back pain laterality, unspecified whether sciatica present documented in this encounter Additional Health Concerns Assessment Noted Time PHQ-9 Depression Total Score: 0 09/09/20 10:25 AM EST documented as of this encounter Care Teams Platform Worker Relationship Specialty Start Date End Date Name, MD Paxton [address] [place] [address] PCP - General Family Medicine 04/08/16 Kathe Soriano PharmD [address] [place] [address] Pharmacist Internal Medicine 06/15/22 documented as of this encounter
--- OUTSIDE RECORDS SUMMARY | 2025-01-04 10:44 | XMS_ITS | Encounter Summary ---
Author Organization [employer] [facility] Address [address] [place] [address] 7t [place] [address] Care Team Providers Care Bull Rider Name Role Phone NamePaxton MD Primary Care Provider [phone] Kathe Soriano PharmD Unavailable [phone] Encounter Details Date Type Department Care Team (Late Contact Info) Description 09/22/2022 Orders Only [facility] [address] [place] [address] Kathe Soriano, PharmD [address] [place] [address] Social History Tobacco Use Types Packs/Day Years [...] suspected to have Coronavirus/COVID-19? No / Unsure 09/09/2022 9:50 AM EST documented as of this encounter Plan of Treatment Upcoming Encounters Date Type Department Care Team (Late Contact Info) Description 02/22/2025 11:15 AM EDT Office Visit [facility] [address] [place] [phone] Paxton Goldstein, MD [address] [place] [address] documented as of this encounter Visit Diagnoses Not on filedocumented in this encounter Additional Health Concerns Assessment Noted Time PHQ-9 Depression Total Score: 0 09/09/20 10:25 AM EST documented as of this encounter Care Teams Bull Rider Relationship Specialty Start Date End Date Name, MD Paxton [address] [place] [address] PCP - General Family Medicine 04/08/16 Kathe Soriano PharmD [address] [place] [phone] Pharmacist Internal Medicine 06/15/22 documented as of this encounter
--- OUTSIDE RECORDS SUMMARY | 2025-01-04 10:44 | XMS_ITS | Encounter Summary ---
Author Organization [employer] Address [address] [facility] 7t [place] [address] Care Team Providers Care Otolaryngology Surgeon Name Role Phone Name, Paxton GANT Primary Care Provider [phone] Kathe Soriano PharmD Unavailable Encounter Details Date Type Department Care Team ([facility] Contact Info) Description 11/26/2022 Orders Only [facility] MEDICINE [address] [place] [address] [phone] Paxton Goldstein MD [address] [place] [phone] Social History Tobacco Use Types Packs/Day Years [...] Description 02/22/2025 11:15 AM EDT Office Visit [facility] [address] [place] [address] [phone] NamePaxton MD [address] [place] [address] documented as of this encounter Visit Diagnoses Not on filedocumented in this encounter Additional Health Concerns Assessment Noted Time PHQ-9 Depression Total Score: 0 09/09/20 10:25 AM EST documented as of this encounter Care Teams Otolaryngology Surgeon Relationship Specialty Start Date End Date Name, MD Paxton [address] [place] [phone] PCP - General Family Medicine 04/08/16 Kathe Soriano PharmD [address] [place] [phone] Pharmacist Internal Medicine 06/15/22 documented as of this encounter
--- OUTSIDE RECORDS SUMMARY | 2025-01-04 10:44 | XMS_ITS | Clinical Summary ---
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, not stated as uncontrolled(250.70) 01/09/2014 DX:Type II or unspecified ty pe diabetes mellitus with peripheral circulatory disorders, not stated as uncontrolled(250.70) Family History Medical History Relation Name Comments Autoimmune disease Neg Hx Blindness Neg Hx Breast cancer Neg Hx Cataracts Neg Hx Colon cancer Neg Hx Coronary artery disease Neg Hx Diabetes Neg Hx Glaucoma Neg Hx Heart attack Neg Hx Heart failure Neg Hx Hyperlipidemia Neg Hx Hypertension Neg Hx Macular degeneration Neg Hx Mental illness Neg Hx Prostate cancer Neg Hx Sleep apnea Neg Hx Strabismus Neg Hx Thyroid disease Neg Hx Relation Name Status Comments Brother Alive Daughter 1 Alive Daughter 2 Alive Daughter 3 Alive Daughter 4 Alive Daughter 5 Alive Father (Age 70) malignancy Mother Alive Sister Alive lymphedema Son Alive Social History Tobacco Use Types Packs/Day Years Used Date Smoking Tobacco: Every Day Cigarettes Smokeless Tobacco: Never Alcohol Use Standard Drinks/Week Comments No 0 (1 standard drink = 0.6 oz pur e alcohol) Sex and Gender Information Value Date Recorded Sex Assigned at Not on file Legal Sex Male 2:31 PM EST Gender Identity Not on file Sexual Orientation Not on file Obstetrics History Plan of Treatment Health Maintenance Due Date Last Done Comments Diabetes: Annual GFR (Glomerular Filtration Rate) 1967 Diabetes: Annual Foot Exam 1977 Diabetes: Annual Retina Eye Exam 1977 Hepatitis B Vaccines (1 of 3 - 19+ 3-dose series) 1986 Pneumococcal Vaccine: 50+ Years (1 of 2 - PCV) 1986 Pneumococcal Vaccine: Pediatrics (0 to 5 Years) and At-Risk Patients (6 to 64 Years) (1 of 2 - PCV) 1986 Zoster Vaccines (1 of 2) 2017 DTaP,Tdap,and Td Vaccines (2 - Td or Tdap) 10/28/2020 10/28/2010 Cholesterol Screening (Lipid Panel) 08/26/2022 Colorectal Cancer Screening: Colonoscopy 08/26/2022 Depression Screening 08/26/2022 HIV Screening 08/26/2022 Hepatitis C Screening 08/26/2022 Social Influencers of Health Screening 08/26/2022 Diabetes: Annual Urine Albumin-Creatinine Ratio (uACR) 09/09/2022 Diabetes: Blood Sugar Control Test (HGBA1C) 09/09/2022 Hypertension/CHF/CAD Annual BMP Blood Test 09/09/2022 COVID-19 Vaccine ( season) 2024 Influenza Vaccine (Season Ended) 2025 09/06/2015, 07/02/2014, 07/04/2013, Additional history exists HIB Vaccines Aged Out [...] on patient's age to complete this topic MMR Vaccines Aged Out No longer eligi ble based on patient's age to complete this topic Meningococcal ACWY Vaccine Aged Out N o longer eligible based on patient's age to complete this topic Meningococcal B Vaccine Aged Out No l onger eligible based on patient's age to complete this topic RSV Immunization Patients Under 20 months Aged Out No longer eligible based on patient's age to complete this topic Varicella Vaccines Aged Out No longer eligible based on patient's age to complete this topic Care Teams Sports Coordinator Relationship Specialty Start Date End Date Adan Welch MD [address] [place] [address] PCP - General Internal Medicine 12/09/15
--- OUTSIDE RECORDS SUMMARY | 2025-01-04 10:44 | XMS_ITS | Encounter Summary ---
Author Organization [employer] Address [address] [facility] 7t [place] [address] Care Team Providers Care Charger Operator Name Role Phone Name, Paxton GANT Primary Care Provider [phone] Kathe Soriano PharmD Unavailable [phone] Encounter Details Date Type Department Care Team (Latest Contact Info) Description 01/04/2025 Travel Social History Tobacco Use Types Packs/Day Years [...] your housing situation today? I have spencer csatillo 07/15/[address] you li [...] Description 02/22/2025 11:15 AM EDT Office Visit [facility] MEDICINE [address] [place] [phone] Name, MD Paxton [address] [place] [address] documented as of this encounter Goals Goal Patient Goal Type Associated Problems Recent Progress Patient-Stated? Author Blood Pressure < 140/90 Blood Pressure 147/79(2024 9:22 AM EDT) No Puia, Kathe, PharmD Hemoglobin A1c < 7 Result Component 5.6( 9:08 AM EDT) No LiiaGadielKathe, PharmD documented as of this encounter Visit Diagnoses Not on filedocumented in this encounter Additional Health Concerns Assessment Noted Time PHQ-9 Depression Total Score: 0 12/07/19 24 10:36 AM EDT documented as of this encounter Care Teams Charger Operator Relationship Specialty Start Date End Date Name, MD Paxton [address] [place] [address] PCP - General Family Medicine 04/08/16 Kathe Soriano, PharmD [address] [place] [phone] Pharmacist Internal Medicine 06/15/22 documented as of this encounter
[2025-01-04 11:38] LABS: MANUAL DIFF FLAG NO
[2025-01-04 12:01] LABS: Basophils Percent Auto 0.5 % (0-2); Eosinophils Absolute Auto 0.1 X10*3/uL (0.0-0.4); Eosinophils Percent Auto 2.3 % (0-4); Hematocrit 38.1 % (42.0-52.0); Hemoglobin 13.2 g/dl (14.0-18.0); Imm Gran Abs Auto 0.01 X10*3/uL (0.00-0.03); Imm Gran Pct Auto 0.2 % (0.0-0.4); Lymphocytes Absolute Auto 2.9 X10*3/uL (1.2-4.9); Lymphocytes Percent Auto 48.4 % (20-40); Mean Corpuscular HGB Conc 34.6 g/dl (31.0-36.0); Mean Corpuscular Hemoglobin 29.7 pg (27.0-33.0); Mean Corpuscular Volume 85.6 fL (80.0-98.0); Mean Platelet Volume 11.4 fL (9.4-12.4); Monocytes Absolute Auto 0.6 X10*3/uL (0.1-1.2); Monocytes Percent Auto 10.4 % (2-11); Neutrophils Absolute Auto 2.3 x10*3/uL (2.0-8.3); Neutrophils Percent Auto 38.2 % (45-73); Platelet Count 187 X10*3/uL (160-400); Red Blood Count 4.45 X10*6/uL (4.60-5.80); Red Cell Distribution Width 12.2 % (11.0-16.0)
[2025-01-04 12:16] LABS: Alanine Aminotransferase 21 U/L (0-40); Alkaline Phosphatase 157 U/L (39-117); Anion Gap 10 (12-20); Aspartate Amino Transferase 30 U/L (5-37); Bilirubin Total 0.6 mg/dL (0.0-1.0); Blood Urea Nitrogen 7 mg/dL (9-16); Calcium 9.2 mg/dL (8.4-10.2); Carbon Dioxide 30 mmol/L (22-29); Chloride 104 mmol/L (96-108); Estimated Glomerular Filt Rate > 60; Glucose Random 71 mg/dL (60-115); Potassium 4.3 mmol/L (3.3-5.1); Sodium 140 mmol/L (135-145)
[2025-01-04 12:23] LABS: TSH reflex Free T4 < 0.01 uIU/mL (0.32-4.0)
[2025-01-04 13:11] LABS: Free T4 (Free Thyroxine) 2.73 ng/dL (0.71-1.85)
[2025-01-09 16:09] LABS: Thyroid Stimulating Immunoglob 254 % baseline (<140)
== END 2025-01-04 09:37 | disposition home or self-care (01) ==
LOC: HO.HHCL 09:36
PROVIDERS: Visit Provider Internal Medicine Geriatric Medicine
DX: E05.90 Thyrotoxicosis, unspecified without thyrotoxic crisis or storm (principal)
CPT/HCPCS: 36415; 80053; 84439; 84443; 84445; 85025

== ENCOUNTER → 2025-02-08 08:30 | Outpatient (REF) | payer MEDICARE, MEDICAID, SELFPAY ==
--- OUTSIDE RECORDS SUMMARY | 2025-02-08 08:51 | XMS_ITS | Encounter Summary ---
Author Organization [employer] Address [address] [facility] 7t [place] [address] Care Team Providers Care Ui Ux Engineer Name Role Phone Name, Paxton GANT Primary Care Provider Kathe Soriano PharmD Unavailable [phone] Reason for Visit * Reason Comments Med Refill Encounter Details Date Type Department Care Team (Late st Contact Info) Description 06/07/2024 Refill [facility] [address] [place], [place] [phone] Name, MD Paxton [address] [place] [address] Neuropathic pain, leg, bilateral Social History Tobacco [...] the past 12 months, has t he [email or web address] gas, oil or water [email or web address] threatened to shut off services in your [...] Description 02/22/2025 11:15 AM EDT Office Visit [facility] [address] [place] [phone] Name, MD Paxton [address] [place] [address] 03/19/2025 9:00 AM EDT Office Visit [facility] [address] [place] [phone] Ignacio Woody DDS [address] [place] [address] documented as of this encounter Goals Goal Patient Goal Type Associated Problems Recent Progress Patient-Stated? Author Blood Pressure < 140/90 Blood Pressure 152/82(2024 8:46 AM EDT) No PuiaKathe, PharmD Hemoglobin A1c < 7 Result Component 5.6( 9:08 AM EDT) No Kathe Soriano, PharmD documented as of this encounter Visit Diagnoses Diagnosis Neuropathic pain, leg, bilateral documented in this encounter Additional Health Concerns Assessment Noted Time PHQ-9 Depression Total Score: 0 12/07/19 24 10:36 AM EDT documented as of this encounter Care Teams Ui Ux Engineer Relationship Specialty Start Date End Date Name, MD Paxton [address] [place] [address] PCP - General Family Medicine 04/08/16 Kathe Soriano PharmD [address] [place] [address] Pharmacist Internal Medicine 06/15/22 documented as of this encounter
--- OUTSIDE RECORDS SUMMARY | 2025-02-08 08:51 | XMS_ITS | Clinical Summary ---
Author Organization [employer] Address [address] [facility] 7t [place] [address] Care Team Providers Care Director Of Neurology Name Role Phone Name, Paxton GANT Primary Care Provider [phone] Kathe Soriano PharmD Unavailable [phone] Allergies No known active allergies Medications omega-3 (Fish Oil) 1000 MG capsule Take 2 capsules by mouth every 12 (twelve) hours. Active polyvinyl alcohol (Liquifilm Tears) 1.4 % ophthalmic solution Administer into both eyes in the morning, at noon, in the evening, and at bedtime. Active albuterol 108 (90 Base) MCG/ACT inhaler [...] needed in the morning and at bedtime. 024 Active sertraline (Zoloft) 50 MG tablet Take [...] by mouth Once per day. 30 tablet 11 024 2024 Active lisinopril 40 MG tabletIndication [...] each dose. 2 each 2 024 Active glucose blood (FREESTYLE LITE) test stripIndications :Type II diabetes mellitus with complication ([facility]) Use to test blood sugar once daily as directed 100 strip 5 Active TRUEplus Lancets 33G miscIndications: Type II diabetes mellitus with complication ([facility]) USE DIRECTED TO TEST BLOOD SUGAR ONCE [...] RELATIONS ONCE DAILY NEEDED. 12 tablet 2 025 Active atenolol (Tenormin) 100 MG tablet Take 1 tablet (100 mg) by mouth Once per day. 30 tablet 11 025 2025 Active methIMAzole (Tapazole) 10 MG tablet Take 2 tablets (20 mg) by mouth Once per day. 60 tablet 1 025 2024 Active Trulicity 0.75 MG/0.5ML solution auto-injector INJECT ONE PEN (=0.75MG) SUBCUTANEOUSLY ONCE A WEEK DIRECTED 2 mL 5 025 Active oxyCODONE-acetam inophen (Percocet) 5-325 MG tabletIndication s:Neuropathic pain, leg, bilateral Take 1 tablet by mouth every 12 (twelve) hours if needed for severe pain. Do not start before February 02, 2025. 56 tablet 025 Active clindamycin (Cleocin) 150 MG capsule Take 1 capsule (150 mg) by mouth 4 times daily for 7 days. 28 capsule 025 2024 Active acetaminophen (Tylenol 8 Hour) 650 MG ER tablet Take 1 tablet (650 mg) by mouth every 8 (eight) hours if needed for moderate pain for up to 10 days. Do not crush, chew, or split. 15 tablet 025 2024 Active ibuprofen 400 MG tablet Take 1 tablet (400 mg) by mouth every 6 (six) hours if needed for moderate pain for up to 10 days. 15 tablet 025 2024 Active Trulicity 0.75 MG/0.5ML solution auto-injector INJECT ONE PEN (=0.75MG) SUBCUTANEOUSLY ONCE A WEEK DIRECTED 2 mL 5 024 2024 Discontinued oxyCODONE-acetam inophen (Percocet) 5-325 MG tabletIndication s:Neuropathic pain, leg, bilateral Take 1 tablet by mouth every 12 (twelve) hours if needed for severe pain. 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 See clinical documentation spec Recurrent falls 01/27/2017 Urinary incontinence 01/27/2017 ED [...] Encounters Date Type Department Care Team Description 02/05/2025 10:00 AM EDT Office Visit [facility] ADULT DENTAL [address] [place] [address] Shaylee Nolasco, DDS Rampant dental caries (Primary Dx); Dental abscess 02/05/2025 9:00 AM EDT Office Visit [facility] WALK-IN CENTER [address] [place] [phone] Gutierrez Govea MD Dental infection (Primary Dx); Hypertension, unspecified type 01/30/2025 Refill [facility] MEDICINE [address] [place] [phone] Paxton Goldstein MD 01/29/2025 Refill [facility] MED & PEDS [address] [place] [address] Paxton Goldstein MD Neuropathic pain, leg, bilateral 01/09/2025 Orders Only [facility] MEDICINE [address] [place] [phone] Paxton Goldstein MD Graves' disease (Primary Dx) 01/04/2025 9:00 AM EDT Office Visit [facility] MEDICINE [address] [place] [address] Paxton Goldstein MD Hyperthyroidism (Primary Dx); Type II diabetes mellitus with complication ([facility]); Hypertension, unspecified type 01/04/2025 Orders Only [facility] MEDICINE [address] [place] [phone] Paxton Goldstein MD 01/04/2025 Refill [facility] [address] [place] [address] Paxton Goldstein MD Neuropathic pain, leg, bilateral 01/04/2025 Refill [facility] [address] [place] [address] Paxton Goldstein MD Neuropathic pain, leg, bilateral 01/04/2025 Travel 12/18/2024 Refill [facility] [address] [place] [address] Paxton Goldstein MD Neuropathic pain, leg, bilateral 12/13/2024 Refill [facility] [address] [place] [address] Paxton Goldstein MD Neuropathic pain, leg, bilateral 12/12/2024 2:40 PM EDT Office Visit [facility] [address] [place] [address] Misty Saenz MD Hordeolum externum of left lower eyelid (Primary Dx); Hypertension, unspecified type 12/11/2024 Telephone [facility] [address] [place] [address] Paxton Goldstein MD Nurse Triage 12/08/2024 Population Health Risk Score [facility] ([facility]) Department [address] [place] [phone] Provider, Population Health Generic 12/05/2024 Refill [facility] [address] [place] [address] Paxton Goldstein MD Neuropathic pain, leg, bilateral 11/21/2024 Refill [facility] [address] [place], [place] [phone] Paxton Goldstein MD Neuropathic pain, leg, bilateral 11/11/2024 Refill [facility] MEDICINE [address] [place], [place] [phone] Paxton Goldstein MD Peroneal neuropathy, unspecified laterality from Last 3 Months Immunizations Immunization Administration Dates Next Due Hep B, adult [...] Sign Reading Time Taken Comments Blood Pressure 152/82 02/05/2025 8:46 AM EDT Pulse 90 02/05/2025 8:46 AM EDT Temperature 36.9 ??C (98.4 ??F) 02/05/2025 8:46 AM ED T Respiratory Rate 18 02/05/2025 8:46 AM EDT Oxygen Saturation 97% 02/05/2025 8:46 AM EDT Inhaled Oxygen Concentration - - Weight 81.2 kg (179 lb) 02/05/2025 8:46 AM EDT Height 170.2 cm (5' 7 ) 01/04/2025 9:04 AM EDT Body Mass Index 28.04 01/04/2025 9:04 AM EDT Plan of Treatment Upcoming Encounters Date Type Department Care Team (Late st Contact Info) Description 02/22/2025 11:15 AM EDT Office Visit [facility] MEDICINE [address] [place] [phone] Name, MD Paxton [address] [place] [address] 03/19/2025 9:00 AM EDT Office Visit [facility] ADULT DENTAL [address] [place] [address] Ignacio Woody DDS [address] [place] [address] Health Maintenance Due Date Last Done Comments [...] 06/06/2024, 12/07/2023, Additional history exists Tobacco Screening 02/05/2026 02/05/2025 DTaP/Tdap/Td Vaccines (4 - Td or Tdap) [...] Blood Pressure 152/82(2024 8:46 AM EDT) No Kathe Soriano PharmD Hemoglobin A1c < 7 Result Component 5.6( 9:08 AM EDT) No Kathe Soriano PharmD Procedures Procedure Name Priority Date/Time Associated Diagnosis Comments CASE PRESENTATION, DETAILED AND EXTENSIVE TREATMENT PLANNING Routine 02/05/2025 10:00 AM EDT INTRAORAL - PERIAPICAL FIRST RADIOGRAPHIC IMAGE Routine 02/05/2025 10:00 AM EDT PALLIATIVE (EMERGENCY) TREATMENT OF DENTAL PAIN - MINOR PROCEDURE Routine 02/05/2025 10:00 AM EDT 5 EXTRACTION Routine 02/05/2025 12:00 AM EDT T4, FREE Routine 01/04/2025 9:40 AM EDT COMPREHENSIVE METABOLIC PANEL Routine 01/04/2025 9:40 AM EDT Hyperthyroidism CBC WITH AUTO DIFFERENTIAL Routine 01/04/2025 9:40 AM EDT Hyperthyroidism TSH W/REFLEX TO FT4 Routine 01/04/2025 9 :40 AM EDT Hyperthyroidism TSI (THYROID STIMULATING IMMUNOGLOBULIN) Routine 01/04/2025 9:40 AM EDT Hyperthyroidism POCT GLYCATED HEMOGLOBIN, TOTAL Routine 01/04/2025 9:08 [...] Recently Relevant to Health Maintenance Results * (ABNORMAL) TSH W/Reflex to FT4 (01/04/2025 9:40 AM EDT) TSH reflex Free T4 <0.01(L) 0.32 - 4.0 uIU/mL [facility] Blood Venous blood specimen / Unknown 01/04/2025 9:40 AM EDT 01/04/2025 11:34 AM EDT us Paxton Goldstein MD LAB BLOOD ORDERABLES Final Resul t [facility] [address] [place] [phone] * (ABNORMAL) CBC auto differential (01/04/2025 9:40 AM EDT) White Blood Count 6.0 4.8 - 10.8 X10*3/uL [facility] Red Blood Count 4.45(L) 4.60 - 5.80 X10*6/uL [facility] Hemoglobin 13.2(L) 14.0 - 18.0 g/dl [facility] Hematocrit 38.1(L) 42.0 - 52.0 % [facility] Mean Corpuscular Volume 85.6 80.0 - 98.0 fL [facility] Mean Corpuscular Hemoglobin 29.7 27.0 - 33.0 pg [facility] Mean Corpuscular HGB Conc 34.6 31.0 - 36.0 g/dl [facility] Red Cell Distribution Width 12.2 11.0 - 16.0 % [facility] Platelet Count 187 160 - 400 X10*3/uL [facility] Mean Platelet Volume 11.4 9.4 - 12.4 fL [facility] Neutrophils Percent Auto 38.2(L) 45 - 73 % [facility] Imm Gran Pct Auto 0.2 0.0 - 0.4 % [facility] Lymphocytes Percent Auto 48.4(H) 20 - 40 % [facility] Monocytes Percent Auto 10.4 2 - 11 % [facility] Eosinophils Percent Auto 2.3 0 - 4 % [facility] Basophils Percent Auto 0.5 0 - 2 % [facility] NRBC Pct Auto 0.0 0.0 - 0.2 /100WBC [facility] Neutrophils Absolute Auto 2.3 2.0 - 8.3 x10*3/uL [facility] Imm Gran Abs Auto 0.01 0.00 - 0.03 X10*3/uL [facility] Lymphocytes Absolute Auto 2.9 1.2 - 4.9 X10*3/uL [facility] Monocytes Absolute Auto 0.6 0.1 - 1.2 X10*3/uL [facility] Eosinophils Absolute Auto 0.1 0.0 - 0.4 X10*3/uL [facility] Basophils Absolute Auto 0.0 0.0 - 0.2 X10*3/uL [facility] NRBC Abs Auto 0.000 0.0 - 0.012 X10*3/uL [facility] Blood Venous blood specimen / Unknown 01/04/2025 9:40 AM EDT 01/04/2025 11:34 AM EDT us Paxton Goldstein MD LAB BLOOD ORDERABLES Final Resul t [facility] [address] [place] [phone] * (ABNORMAL) TSI (Thyroid Stimulating Immunoglobulin) (01/04/2025 9:40 AM EDT) Thyroid Stimulating Immunoglobulin 254(A) <140 % baseline [facility] Comment: Thyroid stimulating immunoglobulins (TSI) can engagethe TSH receptors resulting in hyperthyroidism inGraves' disease patients. TSI levels can be useful inmonitoring the clinical outcome of Graves' disease aswell as assessing the potential for hyperthyroidismfrom maternal- transfer. TSI results greater thanor equal to (>=) 140% of the Reference Control areconsidered positive.NOTE:A serum TSH level greater than 350 micro-InternationalUnits/mL can interfere with the TSI bioassay andpotentially give false positive results.Patients who are and are suspected of havinghyperthyroidism should have both TSI and humanChorionic Gonadotropin(hCG) tests measured. A serumhCG level greater than 40,625 mIU/mL can interferewith the TSI bioassay and may give false negativeresults. In these patients it is recommended thata second TSI be obtained when the hCG concentrationfalls below 40,625 mIU/mL (usually after -yxcyt gestation).The analytical performance characteristics of thisassay have been determined by [employer] [place]. ??The modificationshave not been cleared or approved by the FDA. ??Thisassay has been validated pursuant to the CLIAregulations and is used for clinical purposes.THIS TEST WAS PERFORMED AT:[facility] [place], [place] ??[id number] CHOWDARY MD,PHD Blood Venous blood specimen / Unknown 01/04/2025 9:40 AM EDT 01/04/2025 11:34 AM EDT us Paxton Goldstein MD LAB BLOOD ORDERABLES Final Resul t Performing Organization Address City/[facility]/ZIP Co de Phone Number [facility] [address] [place] [phone] * (ABNORMAL) T4, Free (01/04/2025 9:40 AM EDT) Free T4 (Free Thyroxine) 2.73(H) 0.71 - 1.85 ng/dL [facility] 01/04/2025 9:40 AM EDT 01/04/2025 11:34 AM EDT us Paxton Goldstein MD LAB BLOOD ORDERABLES Final Resul t Performing Organization Address [facility] Co de Phone Number [facility] [address] [place] [phone] * (ABNORMAL) Comprehensive Metabolic Panel (01/04/2025 9:40 AM EDT) Sodium 140 135 - 145 mmol/L [facility] Potassium 4.3 3.3 - 5.1 mmol/L [facility] Chloride 104 96 - 108 mmol/L [facility] Carbon Dioxide 30(H) 22 - 29 mmol/L [facility] Anion Gap 10(L) 12 - 20 [facility] Urea Nitrogen (BUN) 7(L) 9 - 16 mg/dL [facility] Creatinine, Serum 0.51 0.5 - 1.4 mg/dL [facility] Estimated Glomerular Filt Rate >60 [facility] Comment:Chronic Kidney Disea se: Estimated GFR < 60 mL/min/1.06x2Eobzzg Kidney Disease: Estimated GFR < 15 mL/min/1.73m2 Glucose 71 60 - 115 mg/dL [facility] Calcium 9.2 8.4 - 10.2 mg/dL [facility] Bilirubin, Total 0.6 0.0 - 1.0 mg/dL [facility] Aspartate Amino Transferase 30 5 - 37 U/L [facility] Alanine Aminotransferase 21 0 - 40 U/L [facility] Total Protein 7.0 6.5 - 8.0 g/dL [facility] Albumin Level 4.0 3.5 - 5.0 g/dL [facility] Alkaline Phosphatase 157(H) 39 - 117 U/L [facility] Blood Venous blood specimen / Unknown 01/04/2025 9:40 AM EDT 01/04/2025 11:34 AM EDT us Paxton Goldstein MD LAB BLOOD ORDERABLES Final Resul t [facility] [address] [place] [phone] * POCT HGB A1C (01/04/2025 9:08 AM EDT) Hemoglobin A1C 5.6 4.0 - 6.0 % QC Media Lot # [id number] Lot# Expiration Date 110,426 Blood 01/04/2025 9:08 AM EDT us Paxton Goldstein MD POINT OF CARE TEST ENTER/EDIT OR DERABLES Final Result * POCT Glucose (01/04/2025 9:07 AM EDT) Glucose Blood, POC 105 60 - 200 mg/dL [employer] Lot # [id number] Lot# Expiration Date 82,625 Blood Capillary blood specimen / Unknown 01/04/2025 9:07 AM EDT us Paxton Goldstein MD POINT OF CARE TEST ENTER/EDIT OR DERABLES Final Result * Albumin, Random Urine W/Creatinine (12/08/2023 8:37 AM EDT) Creatinine, Urine 105.47 mg/dL [facility] Microalbumin Urine 5.0 mg/L [facility] Microalbum Creatinine Ratio Ur 4.7 <30 ug/mg cr [facility] Comment:Albumin/Creatinine R atio Reference Ranges: Normal: < 30 ug/mg creatinine Microalbuminuria: 30 - 300 ug/mg creatinineClinical Albuminuria: > 300 ug/mg creatinine Urine (Urine, Random) 12/08/2023 8:37 AM EDT 12/08/2023 11:26 AM EDT us Paxton Goldstein MD LAB URINE ORDERABLES Final Resul t Performing Organization Address [facility] de Phone Number [facility] [address] [place] [phone] * (ABNORMAL) Lipid Panel, Standard (12/08/2023 8:37 AM EDT) Triglycerides 103 <150 mg/dL [facility] Comment:Desirable Triglyceri de: less than 150 mg/dLBorderline High Triglyceride 150-199 mg/dLHigh Triglyceride: 200-499 mg/dLVery High Triglyceride: greater than or equal to 5OO mg/dL Cholesterol 141 <200 mg/dL [facility] Comment:Desirable Cholestero l: less than 200 mg/dLBorderline High Cholesterol: 200-239 mg/dLHigh Cholesterol: greater than 239 mg/dL LDL Cholesterol Calculated 83 <100 mg/dL [facility] Comment:Desirable LDL: less than 100 mg/dLNear Optimal/Above Optimal LDL: 110- 129 mg/dLBorderline High LDL: 130-159 mg/dLHigh LDL: 160-189 mg/dLVery High LDL: greater than or equal to 190 mg/dL HDL Cholesterol 38(L) >40 mg/dL [facility] Comment:Desirable HDL: great er than 40 mg/dL Note: This HDL assay may give artificially low results in patients with liver disease. Blood Venous blood specimen / Unknown 12/08/2023 8:37 AM EDT 12/08/2023 11:16 AM EDT us Paxton Goldstein MD LAB BLOOD ORDERABLES Final Resul t Performing Organization Address [facility] Co de Phone Number [facility] [address] [place] [phone] from Last 3 Months or Most Recently Relevant to Health Maintenance [place] [address] [place] [address] STANDARD MEDICARE DENTAL-[facility] MEDICAID STAND ADULT Care Teams Director Of Neurology Relationship Specialty Start Date End Date Name, MD Paxton [address] [place] [address] PCP - General Family Medicine 04/08/16 Kathe Soriano PharmD [address] [place] [address] Pharmacist Internal Medicine 06/15/22
--- OUTSIDE RECORDS SUMMARY | 2025-02-08 08:51 | XMS_ITS | Patient Health Record ---
Author Organization [facility] Address [address] [place], [place] [phone] Care Team Providers Care Community Education Specialist Name Role Phone No, PCP Primary Care Provider [place] Lake Unavailable [phone] Reason For Referral No Information Plan Of Treatment No Information Insurance Providers Payer Name Payer Address Payer Phone Subscriber Number Group Number Insured Name Patient Relationship to Insured Coverage Start Date Coverage End Date [place] Standard [address] [place] [address] [id number] Calvin Clark Self - patient is the insured 2
--- OUTSIDE RECORDS SUMMARY | 2025-02-08 08:51 | XMS_ITS | Encounter Summary ---
Author Organization [employer] Address [address] [facility] 7t [place] [address] Care Team Providers Care Brickmason Contractor Name Role Phone Name, Paxton GANT Primary Care Provider [phone] Kathe Soriano PharmD Unavailable [phone] Encounter Details Date Type Department Care Team ([facility] Contact Info) Description 09/22/2022 Orders Only [facility] MEDICINE [address] [place] [phone] Kathe Soriano, PharmD [address] [place] [address] Social History Tobacco Use Types Packs/Day Years [...] Description 02/22/2025 11:15 AM EDT Office Visit [facility] [address] [place] [address], [place] [address] Name, MD Paxton [address] [place] [address] 03/19/2025 9:00 AM EDT Office Visit [facility] ADULT DENTAL [address] [place], [place] [phone] Ignacio Woody DDS [address] [place] [address] documented as of this encounter Visit Diagnoses Not on filedocumented in this encounter Additional Health Concerns Assessment Noted Time PHQ-9 Depression Total Score: 0 09/09/20 10:25 AM EST documented as of this encounter Care Teams Brickmason Contractor Relationship Specialty Start Date End Date Name, MD Paxton [address] [place] [phone] PCP - General Family Medicine 04/08/16 Kathe Soriano PharmD [address] [place] [phone] Pharmacist Internal Medicine 06/15/22 documented as of this encounter
--- OUTSIDE RECORDS SUMMARY | 2025-02-08 08:52 | XMS_ITS | Encounter Summary ---
Author Organization [employer] Address [address] [facility] 7t [place] [address] Care Team Providers Care Inspector Scales Name Role Phone Name, Paxton GANT Primary Care Provider Kathe Soriano PharmD Unavailable [phone] Encounter Details Date Type Department Care Team (Late st Contact Info) Description 11/26/2022 Orders Only [facility] MEDICINE [address] [place] [phone] Name, MD Paxton [address] [place] [phone] Social History Tobacco Use Types Packs/Day Years [...] Description 02/22/2025 11:15 AM EDT Office Visit [facility] MEDICINE [address] [place] [phone] Name, MD Paxton [address] [place] [address] 03/19/2025 9:00 AM EDT Office Visit [facility] ADULT DENTAL [address] [place], [place] [phone] Ignacio Woody DDS [address] [place], [place] [phone] documented as of this encounter Visit Diagnoses Not on filedocumented in this encounter Additional Health Concerns Assessment Noted Time PHQ-9 Depression Total Score: 0 09/09/20 10:25 AM EST documented as of this encounter Care Teams Inspector Scales Relationship Specialty Start Date End Date Name, [place] [address] PCP - General Family Medicine 04/08/16 Kathe Soriano, Machelle [address] [place] [phone] Pharmacist Internal Medicine 06/15/22 documented as of this encounter
--- OUTSIDE RECORDS SUMMARY | 2025-02-08 08:52 | XMS_ITS | Encounter Summary ---
Author Organization [employer] Address [address] [facility] 7t [place] [address] Care Team Providers Care Smoke Eater Name Role Phone Name, Paxton GANT Primary Care Provider [phone] Kathe Soriano PharmD Unavailable [phone] Reason for Visit * Reason Comments Med Refill Encounter Details Date Type Department Care Team ([facility] st Contact Info) Description 02/29/2024 Refill [facility] P[facility] [address] [place], [place] [phone] Name, MD Paxton [address] [place] [address] Peroneal neuropathy, unspecified laterality Social History Tobacco [...] Description 02/22/2025 11:15 AM EDT Office Visit [facility] MEDICINE [address] [place] [address] Paxton Goldstein MD [address] [place] [address] 03/19/2025 9:00 AM EDT Office Visit [facility] ADULT DENTAL [address] [place] [address] Ignacio Woody DDS [address] [place] [address] documented as of this encounter Goals Goal Patient Goal Type Associated Problems Recent Progress Patient-Stated? Author Blood Pressure < 140/90 Blood Pressure 152/82(2024 8:46 AM EDT) No Puia, Kathe, PharmD Hemoglobin A1c < 7 Result Component 5.6( 9:08 AM EDT) No Puia, Kathe, PharmD documented as of this encounter Visit Diagnoses Diagnosis Peroneal neuropathy, unspecified laterality documented in this encounter Additional Health Concerns Assessment Noted Time PHQ-9 Depression Total Score: 0 12/07/19 24 10:36 AM EDT documented as of this encounter Care Teams Smoke Eater Relationship Specialty Start Date End Date Paxton Goldstein MD [address] [place] [address] PCP - General Family Medicine 04/08/16 Kathe Soriano PharmD [address] [place] [address] Pharmacist Internal Medicine 06/15/22 documented as of this encounter
--- OUTSIDE RECORDS SUMMARY | 2025-02-08 08:52 | XMS_ITS | Encounter Summary ---
Author Organization [employer] Address [address] [facility] 7t [place] [address] Care Team Providers Care Grips Name Role Phone Name, Paxton GANT Primary Care Provider [phone] Kathe Soriano PharmD Unavailable [phone] Encounter Details Date Type Department Care Team ([facility] Contact Info) Description 11/27/2022 Orders Only [facility] MEDICINE [address] [place] [phone] Kristin Collazo, CHEMA [address] [place] [address] Social History Tobacco Use Types Packs/Day Years [...] Upcoming Encounters Date Type Department Care Team ([facility] Contact Info) Description 02/22/2025 11:15 AM EDT Office Visit [facility] MEDICINE [address] [place] [phone] Name, MD Paxton [address] [place] [address] 03/19/2025 9:00 AM EDT Office Visit [facility] ADULT DENTAL [address] [place], [place] [phone] Ignacio Woody DDS [address] [place], [place] [phone] documented as of this encounter Visit Diagnoses Not on filedocumented in this encounter Additional Health Concerns Assessment Noted Time PHQ-9 Depression Total Score: 0 09/09/20 10:25 AM EST documented as of this encounter Care Teams Grips Relationship Specialty Start Date End Date Name, MD Paxton [address] [place] [phone] PCP - General Family Medicine 04/08/16 Kathe Soriano, Machelle [address] [place] [address] Pharmacist Internal Medicine 06/15/22 documented as of this encounter
--- OUTSIDE RECORDS SUMMARY | 2025-02-08 08:52 | XMS_ITS | Encounter Summary ---
Author Organization [employer] Address [address] [facility] 7t [place] [address] Care Team Providers Care Quality Control Specialist Name Role Phone Name, Paxton GANT Primary Care Provider [phone] Kathe Soriano PharmD Unavailable [phone] Reason for Visit * Reason Comments Dental Pain Encounter Details Date Type Department Care Team (Late st Contact Info) Description 02/05/2025 10:00 AM EDT Office Visit [facility] ADULT DENTAL [address] [place] [address] Najera-DumontShaylee, DDS [address] [place] [address] Rampant dental caries (Primary Dx); Dental abscess Social History Tobacco Use Types Packs/Day Years [...] AM EDT documented as of this encounter Progress Notes * Shaylee Nolasco DDS - 02/05/2025 10:00 AM EDT Dental procedures in this visit [id number] - PALLIATIVE (EMERGENCY) TREATMENT OF DENTAL PAIN - MINOR PROCEDURE (Completed) Service provider: Shaylee Nolasco DDS Billing provider: Shaylee Nolasco DDS [id number] - INTRAORAL - PERIAPICAL FIRST RADIOGRAPHIC IMAGE (Completed) Service provider: Shaylee Nolasco DDS Billing provider: Shaylee Nolasco DDS [id number] - CASE PRESENTATION, DETAILED AND EXTENSIVE TREATMENT PLANNING (Completed) Service provider: Shaylee Nolasco DDS Billing provider: Shaylee Nolasco DDS Patient ID: Calvin Clark is a 59 y.o. male. Time Out: Timeout Date: 02/05/25, Timeout Time: 1002 (Time out for dental emergency) Location: [facility] Tooth: #6 Procedure: Emergency Verified the above with patient, office assistant receptionist, and provider. Confirmed via patient's chart, intraorally and by radiographs. Bounty Trapper: not applicable Chief Complaint Patient presents with Dental Pain Medical Hx: Vitals: There were no vitals taken for this visit. 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 Do not crush, chew, or split. 15 tablet 0 acetaminophen (Tylenol) 500 MG tablet Take 1 tablet (500 mg) by mouth every 8 (eight) hours if needed for moderate pain or fever. 30 tablet 0 albuterol (2.5 MG/3ML) 0.083% nebulizer solution USE 1 AMPULE USING A NEBULIZER FOUR TIMES DAILY 270 mL 3 albuterol 108 (90 Base) MCG/ACT inhaler Inhale 2 puffs every 4 (four) hours if needed. ammonium lactate (Amlactin) 12 % cream APPLY TO THE AFFECTED AREA(S) LIBERALLY DAILY DIRECTED 420 g 3 aspirin 81 MG EC tablet Take 1 tablet (81 mg) by mouth Once daily. 90 tablet 3 atenolol (Tenormin) 100 MG tablet Take 1 tablet (100 mg) by mouth Once per day. 30 tablet 11 Blood Glucose Monitoring Suppl (FreeStyle Lite) device Inject under the skin if needed. Use as instructed Blood Pressure kit Use to check blood pressure daily as directed clindamycin (Cleocin) 150 MG capsule Take 1 capsule (150 mg) by mouth 4 times daily for 7 days. 28 capsule 0 clonazePAM (KlonoPIN) 0.5 MG tablet Take 0.5 mg by mouth if needed in the morning and at bedtime. cyanocobalamin (Vitamin B-12) 1000 MCG tablet TAKE 1 TABLET BY MOUTH EVERY MORNING 90 tablet 3 Diclofenac Sodium (Voltaren) 1 % gel Apply once a day to the affected skin 50 g 1 fluticasone (Flonase) 50 MCG/ACT nasal spray INSTILL 2 SPRAYS IN EACH NOSTRIL ONCE DAILY 48 g 0 fluticasone (Flovent) 220 MCG/ACT inhaler INHALE 1 PUFF BY MOUTH TWICE DAILY, RINSE MOUTH AFTER USING 12 g 5 furosemide (Lasix) 20 MG tablet TAKE 1 TABLET BY MOUTH EVERY DAY 90 tablet 1 glucose blood (FREESTYLE LITE) test strip Use to test blood sugar once daily as directed 100 strip 5 hydrOXYzine HCl (Atarax) 25 MG tablet Take 1 tablet by mouth twice daily as needed for anxiety ibuprofen 400 MG tablet Take 1 tablet (400 mg) by mouth every 6 (six) hours if needed for moderate pain for up to 10 days. 15 tablet 0 lisinopril 40 MG tablet TAKE 1 TABLET BY MOUTH ONCE DAILY 30 tablet 11 metFORMIN (Glucophage) 850 MG tablet TAKE 1 TABLET BY MOUTH TWICE DAILY IN THE MORNING AND IN THE EVENING WITH MEALS 60 tablet 11 methIMAzole (Tapazole) 10 MG tablet Take 2 tablets (20 mg) by mouth Once per day. 60 tablet 1 montelukast (Singulair) 10 MG tablet TAKE 1 TABLET BY MOUTH EVERY EVENING 90 tablet 1 naloxone (Narcan) 4 mg/0.1 mL nasal spray Administer 1 spray (4 mg) into affected nostril(s) if needed for opioid reversal. In 1 nostril may repeat dose every 2-3 minutes as needed alternating nostrils with each dose. 2 each 2 omega-3 (Fish Oil) 1000 MG capsule Take 2 capsules by mouth every 12 (twelve) hours. oxyCODONE-acetaminophen (Percocet) 5-325 MG tablet Take 1 tablet by mouth every 12 (twelve) hours if needed for severe pain. Do not start before February 02, 2025. 56 tablet 0 polyvinyl alcohol (Liquifilm Tears) 1.4 % ophthalmic solution Administer into both eyes in the morning, at noon, in the evening, and at bedtime. pravastatin (Pravachol) 40 MG tablet Take 1 tablet (40 mg) by mouth Once per day. 30 tablet 11 Pulmicort Flexhaler 180 MCG/ACT inhaler INHALE 2 PUFFS BY MOUTH TWICE DAILY IN THE MORNING AND AT BEDTIME, RINSE MOUTH AFTER USING. DO NOT SWALLOW 1 each 1 sertraline (Zoloft) 50 MG tablet Take 50 mg by mouth in the morning. sildenafil (Viagra) 50 MG tablet TAKE 1 TABLET 1 HOUR BEFORE SEXUAL RELATIONS ONCE DAILY NEEDED.12 tablet 2 traZODone (Desyrel) 50 MG tablet Take 1 tablet by mouth if needed at bedtime. TRUEplus Glucose On The Go 4 g chewable tablet CHEW 4 TABLETS NEEDED FOR low blood sugar (LESS THAN 70mg/dL) 20 tablet 5 TRUEplus Lancets 33G misc USE DIRECTED TO TEST BLOOD SUGAR ONCE DAILY 100 each 5 Trulicity 0.75 MG/0.5ML solution auto-injector INJECT ONE PEN (=0.75MG) SUBCUTANEOUSLY ONCE A WEEK DIRECTED 2 mL 5 [DISCONTINUED] oxyCODONE-acetaminophen (Percocet) 5-325 MG tablet Take 1 tablet by mouth every 12 (twelve) hours if needed for severe pain. 56 tablet 0 [DISCONTINUED] Trulicity 0.75 MG/0.5ML solution auto-injector INJECT ONE PEN (=0.75MG) SUBCUTANEOUSLY ONCE A WEEK DIRECTED 2 mL 5 No facility-administered encounter medications on file as of 02/05/2025. Subjective: Pain: severe, swollen, taking pain medication. Duration: 2 days Objective: Tooth: #6 Radiographs Taken: PA(s) Radiographic Findings: Tooth #6: Gross rampant caries DL into the root extending under gum line. PARL observed. Extraoral and intraoral inflammation is observed on R side of face extending on R cheek, tenderness, positive to palpation. Tooth #7: DL caries in proximity with pulp. Swelling: Extraoral swelling, Tenderness, and Intraoral swelling Diagnosis: Rampant caries; Abscessed tooth Assessment/Plan: Referred for ext #6 Advised pt to return for dental exam in order to address other dental conditions observed in the mouth. Prescriptions: Clindamycin 150 mg/qid/7 days 28 caps Ibuprofen 400 mg/tid/prn 15 abs Tylenol 650 mg/tid/prn 15 tabs Pt tolerated procedure well, all questions answered. Dismissed in good condition. NV: Ext #6 Slide Maker: Meme Jerome Dentist: Shaylee Nolasco DDS documented in this encounter Plan of Treatment Upcoming Encounters Date Type Department Care Team (Late st Contact Info) Description 02/22/2025 11:15 AM EDT Office Visit [facility] MEDICINE [address] [place] [address] Name, MD Paxton [address] [place] [address] 03/19/2025 9:00 AM EDT Office Visit [facility] ADULT DENTAL [address] [place] [address] Ignacio Woody DDS [address] [place] [address] Scheduled Orders Name Type Priority Associated Diagnoses Orde r Schedule 6 6 EXTRACTION, ERUPTED TOOTH OR EXPOSED ROOT (ELEVATION/FORCEPS REMOVAL) Dental Routine [address] arting 02/05/2025 7 7 ENDODONTIC THERAPY, ANTERIOR TOOTH Dental Routine [address] arting 02/05/2025 7 7 PREFABRICATED POST AND CORE IN ADDITION TO CROWN Dental Routine [address] arting 02/05/2025 7 7 CROWN - PORCELAIN/CERAMIC Dental Routine 1 Occurrences starting 02/05/2025 PERIODIC ORAL EVALUATION - ESTABLISHED PATIENT Dental Routine 1 Occurren lisa starting 02/05/2025 INTRAORAL - PERIAPICAL FIRST RADIOGRAPHIC IMAGE Dental Routine 1 Occur rences starting 02/05/2025 BITEWINGS - 4 RADIOGRAPHIC IMAGES Dental Routine 1 Occurrence s starting 02/05/2025 INTRAORAL - PERIAPICAL EACH ADDITIONAL RADIOGRAPHIC IMAGE Dental Routine 1 Occurrences starting 02/05/2025 documented as of this encounter Goals Goal Patient Goal Type Associated Problems Recent Progress Patient-Stated? Author Blood Pressure < 140/90 Blood Pressure 152/82(2024 8:46 AM EDT) No Puia, Kathe, PharmD Hemoglobin A1c < 7 Result Component 5.6( 9:08 AM EDT) No Puia, Kathe, PharmD documented as of this encounter Procedures Procedure Name Priority Date/Time Associated Diagnosis Comments PALLIATIVE (EMERGENCY) TREATMENT OF DENTAL PAIN - MINOR PROCEDURE Routine 02/05/2025 10:00 AM EDT INTRAORAL - PERIAPICAL FIRST RADIOGRAPHIC IMAGE Routine 02/05/2025 10:00 AM EDT CASE PRESENTATION, DETAILED AND EXTENSIVE TREATMENT PLANNING Routine 02/05/2025 10:00 AM EDT 5 EXTRACTION Routine 02/05/2025 12:00 AM EDT documented in this encounter Visit Diagnoses Diagnosis Rampant dental caries- Primary Dental abscess Periapical abscess without sinus documented in this encounter Additional Health Concerns Assessment Noted Time PHQ-9 Depression Total Score: 0 12/07/19 24 10:36 AM EDT documented as of this encounter Care Teams Quality Control Specialist Relationship Specialty Start Date End Date Name, MD Paxton [address] [place] [address] PCP - General Family Medicine 04/08/16 Kathe Soriano PharmD [address] [place] [address] Pharmacist Internal Medicine 06/15/22 documented as of this encounter
--- OUTSIDE RECORDS SUMMARY | 2025-02-08 08:52 | XMS_ITS | Clinical Summary ---
Author Organization [employer] Address [address] [place] [address] Care Team Providers Care Assistant Farm Operations Manager Name Role Phone Adan Welch MD Primary [...] age to complete this topic Care Teams Assistant Farm Operations Manager Relationship Specialty Start Date End Date Adan Welch MD [address] [place] [address] PCP - General Internal Medicine 12/09/15
--- OUTSIDE RECORDS SUMMARY | 2025-02-08 08:52 | XMS_ITS | Encounter Summary ---
Author Organization [employer] Address [address] [facility] 7t [place] [address] Care Team Providers Care Varnisher Apprentice Name Role Phone Name, Paxton GANT Primary Care Provider [phone] Kathe Soriano PharmD Unavailable [phone] Reason for Visit * Reason Onset Date Comments Med Refill PCP no longer prescribing Percocet 11/04/2022 Reminded pt of our previous conversation 10/28/22 about being weaned off Percocet. See note Encounter Details Date Type Department Care Team (Late st Contact Info) Description 11/04/2022 Telephone [facility] MEDICINE [address] [place] [address] Name, MD Paxton [address] [place], [place] [phone] Med Refill; PCP no longer prescribing Percocet [...] 11/04/2022 8:35 AM EST TC via PI# [id number], pt called asking for refill of Percocet [...] Description 02/22/2025 11:15 AM EDT Office Visit [facility] MEDICINE [address] [place] [address] NamePaxton MD [address] [place] [address] 03/19/2025 9:00 AM EDT Office Visit [facility] ADULT DENTAL [address] [place] [address] Ignacio Woody DDS [address] [place] [address] documented as of this encounter Visit Diagnoses Diagnosis Chronic low back pain, unspecified back pain laterality, unspecified whether sciatica present documented in this encounter Additional Health Concerns Assessment Noted Time PHQ-9 Depression Total Score: 0 09/09/20 22 10:25 AM EST documented as of this encounter Care Teams Varnisher Apprentice Relationship Specialty Start Date End Date NamePaxton MD [address] [place] [address] PCP - General Family Medicine 04/08/16 Kathe Soriano, Machelle [address] [place] [address] Pharmacist Internal Medicine 06/15/22 documented as of this encounter
--- OUTSIDE RECORDS SUMMARY | 2025-02-08 08:52 | XMS_ITS | Encounter Summary ---
Author Organization [employer] Address 75 [facility] 7t [place] [address] Care Team Providers Care Extrusion Operator Name Role Phone Name, Paxton GANT Primary Care Provider [phone] Kathe Soriano PharmD Unavailable [phone] Encounter Details Date Type Department Care Team (Latest Contact Info) Description 12/24/2020 Abstract [facility] CONVERSIONS Dental, Provider, DDS Social History Tobacco [...] Description 02/22/2025 11:15 AM EDT Office Visit [facility] MEDICINE [address] [place] [address] Name, MD Paxton [address] [place] [address] 03/19/2025 9:00 AM EDT Office Visit [facility] ADULT DENTAL [address] [place] [address] Ignacio Woody DDS [address] [place] [address] documented as of this encounter Visit Diagnoses Not on filedocumented in this encounter Care Teams Extrusion Operator Relationship Specialty Start Date End Date Name, MD Paxton [address] [place] [address] PCP - General Family Medicine 04/08/16 Kathe Soriano, RimaD [address] [place] [address] Pharmacist Internal Medicine 06/15/22 documented as of this encounter
--- OUTSIDE RECORDS SUMMARY | 2025-02-08 08:52 | XMS_ITS | Encounter Summary ---
Author Organization [employer] Address [address] [facility] 7t [place] [address] Care Team Providers Care Lead Assembler Name Role Phone Name, Paxton GANT Primary Care Provider [phone] Kathe Soriano PharmD Unavailable [phone] Reason for Visit * Reason Comments Facial Pain Encounter Details Date Type Department Care Team (Late st Contact Info) Description 02/05/2025 9:00 AM EDT Office Visit [facility] [address] [place] [phone] Gutierrez Govea MD [address] [place] [address] Dental infection (Primary Dx); Hypertension, unspecified type Social History Tobacco Use [...] the past 12 months, has t he [employer], gas, oil or water [employer] threatened to shut off services in your [...] (179 lb) 02/05/2025 8:46 AM EDT Height - - Body Mass Index 28.04 01/04/2025 9:04 AM EDT documented in this encounter Progress Notes * Gutierrez Govea MD - 02/05/2025 9:00 AM EDT Subjective Patient ID: Calvin Clark is a 59 y.o. male. Collect On Delivery Clerk: Chad BATISTA Yesterday noted pain in upper right tooth, woke this AM with swelling of right face adjacent to tooth. No fever, chills, n/v/d. Lives with . Former smoker. Not employed. 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 HENT: Positive for dental problem and facial swelling. Respiratory: Negative for shortness of breath. Cardiovascular: Negative for chest pain. Gastrointestinal: Negative for abdominal pain. Skin: Negative for rash. Neurological: Negative for headaches. Objective Physical Exam Constitutional: Appearance: Normal appearance. HENT: Nose: Nose normal. Mouth/Throat: Mouth: Mucous membranes are moist. Dentition: Dental tenderness and dental caries present. Pharynx: Oropharynx is clear. Comments: Tenderness, ?lucas, tooth #6 Eyes: Conjunctiva/sclera: Conjunctivae normal. Pupils: Pupils are equal, round, and reactive to light. Cardiovascular: Rate and Rhythm: Normal rate and regular rhythm. Heart sounds: No murmur heard. Pulmonary: Effort: Pulmonary effort is normal. Breath sounds: Normal breath sounds. Musculoskeletal: General: Normal range of motion. Cervical back: No tenderness. Skin: Findings: No rash. Neurological: Mental Status: He is alert. Gait: Gait is intact. Psychiatric: Mood and Affect: Mood normal. Behavior: Behavior normal. Procedures Assessment/Plan Diagnoses and all orders for this visit: Dental infection We called the [facility] dental clinic, and they kindly agreed to see verbal now. Hypertension, unspecified type Did not take blood pressure medicine today yet. States home BP readings are in normal range documented in this encounter Plan of Treatment Upcoming Encounters Date Type Department Care Team (Late st Contact Info) Description 02/22/2025 11:15 AM EDT Office Visit [facility] [address] [place] [address] Name, MD Paxton [address] [place] [address] 03/19/2025 9:00 AM EDT Office Visit [facility] D[facility] [address] [place] [address] Ignacio Woody DDS [address] [place] [address] documented as of this encounter Goals Goal Patient Goal Type Associated Problems Recent Progress Patient-Stated? Author Blood Pressure < 140/90 Blood Pressure 152/82(2024 8:46 AM EDT) No Kathe Soriano, PharmD Hemoglobin A1c < 7 Result Component 5.6( 9:08 AM EDT) No Kathe Soriano PharmD documented as of this encounter Visit Diagnoses Diagnosis Dental infection- Primary Hypertension, unspecified type documented in this encounter Additional Health Concerns Assessment Noted Time PHQ-9 Depression Total Score: 0 12/07/19 24 10:36 AM EDT documented as of this encounter Care Teams Lead Assembler Relationship Specialty Start Date End Date Name, MD Paxton [address] [place] [address] PCP - General Family Medicine 04/08/16 Kathe Soriano PharmD [address] [place] [address] Pharmacist Internal Medicine 06/15/22 documented as of this encounter
== END ==
LOC: HO.NUCMED 08:30
PROVIDERS: PCP Internal Medicine Geriatric Medicine; Visit Provider Internal Medicine Geriatric Medicine
DX: Z13.89 Encounter for screening for other disorder (principal)

== ENCOUNTER 2025-02-11 09:54 | Emergency (ER) | payer MEDICARE, MEDICAID, SELFPAY ==
[2025-02-11 10:04] VITALS: BP 158/83; PULSE 118; RESP 18; TEMP 37.1; O2SAT 99; BMI 26.7
--- NOTE | 2025-02-11 11:29 | ED_ITS ---
HPI - General Adult General Chief complaint: Dental/Oral Stated complaint: facial pain Time Seen by Provider: 02/11/25 11:28 Source: patient, family (patient's ) and science interpreter (patient declined [facility] science interpreter and instead requested to his at the bed side) Mode of arrival: ambulatory Limitations: language barrier (patient declined [facility] science interpreter and instead requested to his at the bed side) History of Present Illness ED Provider: Katie Valverde PA-C HPI narrative: Patient is a 59 year old assigned male at with a history of dental caries / poor dentition, anxiety, DM, and depression presenting to the emergency department today with continued right upper dental pain / pressure. Patient states that he was seen at [facility] 2 weeks ago and started on antibiotics, patient states that he was seen again 2 days ago and the antibiotic was changed but the pain continues. Patient denies any dizziness, lightheadedness, abdominal pain, nausea, vomiting, fever, chills, blurry vision, double vision, loss of vision, chest pain, difficulty breathing, shortness of breath, back pain, night sweats, pain with urination, increased urinary frequency, increased urinary urgency, blood in his urine or stool, syncope or a near syncopal episode, recent trauma or falls, bowel incontinence, bladder incontinence, or any other complaints at this time. Onset (ago): week(s) (2) Location: face and right Relieving factors: none Exacerbating factors: none Associated symptoms: denies other symptoms Treatments prior to arrival: other (Clindamycin) Related Data Previous Rx's ?Medication ?Instructions ?Recorded lidocaine 5 % topical patch 1 patch topical DAILY PRN pain #15 12/06/22 ea prednisone 20 mg tablet 20 mg PO DAILY 5 days #5 tabs 12/06/22 tramadol 50 mg tablet 50 mg PO BID PRN pain #10 tabs 12/06/22 clindamycin HCl 300 mg capsule 600 mg (2 x 300 mg) PO TID #21 caps 02/11/23 oxycodone-acetaminophen 5 mg-325 1 tab PO TID PRN severe pain 02/11/23 mg tablet (Percocet) (scale score 7-10) #15 tabs oxycodone-acetaminophen 5 mg-325 1 tab PO TID PRN severe pain 02/11/23 mg tablet (Percocet) (scale score 7-10) #15 tabs clindamycin HCl 150 mg capsule 450 mg (3 x 150 mg) PO Q8H 7 days 03/09/23 #63 caps oxycodone-acetaminophen 5 mg-325 1 tab PO Q8H PRN pain (scale score 03/09/23 mg tablet (Percocet) 7-10) 3 days #9 tabs ibuprofen 600 mg tablet 600 mg PO Q6H PRN pain #45 tabs 04/25/23 prednisone 20 mg tablet 40 mg (2 x 20 mg) PO DAILY #10 tabs 05/23/23 amoxicillin 500 mg tablet 500 mg PO TID #21 tabs 06/21/23 oxycodone 5 mg tablet 5 mg PO Q6H PRN severe pain (scale 06/21/23 score 7-10) #12 tabs amoxicillin 500 mg tablet 500 mg PO Q8H #21 tabs 08/02/23 tramadol 50 mg tablet 50 mg PO TID PRN severe pain 08/02/23 (scale score 7-10) #12 tabs clindamycin HCl 150 mg capsule 450 mg (3 x 150 mg) PO Q8H 7 days 11/21/23 #63 caps tramadol 50 mg tablet 50 mg PO TID PRN pain (scale score 11/21/23 7-10) #10 tabs amoxicillin 875 mg-potassium 1 tab PO TID #21 tabs 12/08/23 clavulanate 125 mg tablet lidocaine HCl 2 % mucosal solution 1 appl mucous membrane TID PRN 12/08/23 (Lidocaine Viscous) mouth pain #100 mL Allergies Allergy/AdvReac Type Severity Reaction Status Date / Time No Known Allergies Allergy Verified 02/11/25 10:07 [No Known Allergies*] Review of Systems 2 Constitutional: Constitutional: Reports no additional constitutional complaints, Denies chills, Denies fever(s) and Denies night sweats Eyes: Eyes: Reports no additional eye complaints, Denies blurry vision, Denies change in vision, Denies diplopia, Denies eye discharge, Denies loss of vision and Denies eye pain ENT: Denies dizziness Comments: right upper dental pain / pressure Cardiovascular: Cardiovascular: Reports no additional cardiovascular complaints, Denies chest pain, Denies lightheadedness, Denies Loss of Consciousness and Denies dyspnea Respiratory: Respiratory: Reports no additional respiratory complaints and Denies dyspnea Gastrointestinal: Gastrointestinal: Reports no additional gastrointestinal complaints, Denies abdominal pain, Denies melena, Denies hematochezia, Denies change in bowel habits and Denies change in stool character Genitourinary: Genitourinary: Reports no additional male genitourinary complaints, Denies hematuria, Denies oliguria, Denies difficulty urinating, Denies dysuria, Denies urinary frequency, Denies urinary hesitancy, Denies urinary incontinence and Denies urinary urgency Musculoskeletal: Musculoskeletal: Reports no additional musculoskeletal complaints, Denies numbness and Denies tingling Neurologic: Denies dizziness, Denies loss of vision, Denies numbness and Denies tingling Psychiatric: Psychiatric: Reports no additional psychiatric complaints Endocrine: Endocrine: Reports no additional endocrine complaints Hematologic/Lymphatic: Hematologic/Lymphatic: Reports no additional hematologic/lymphatic complaints Allergic/Immunologic: Allergic/Immunologic: Reports no additional allergic/immunologic complaints PMFSH Past Medical History Attestation statement: The following information was validated with the patient. (Patient's validated all information) Source: old records reviewed, obtained from family (patient's provided additional history and confirmed the history provided by the patient.) and nursing notes reviewed Medical History Anxiety Depression Hypertension Neuropathy Diabetes Social History Social History Alcohol intake: former Smoked in Last 30 Days: No Use of substances other than those prescribed or required for medical reasons: No Advance Directives: No Advance Directives Information Provided: Yes Physical Exam ED Vital Signs: Vital Signs - 24 hr 02/11/25 10:04 02/11/25 12:22 Temperature 98.8 F 99.5 F Pulse Rate 118 H 122 H Respiratory Rate 18 18 Blood Pressure 158/83 H 162/90 H Pulse Oximetry 99 99 Oxygen Delivery Method Room Air Room Air BMI result Body Mass Index 26.7 Const General: cooperative, no acute distress, alert and awake Nutritional Appearance: well nourished Orientation/consciousness: patient oriented x3 HENMT Head: Yes normal to inspection and Yes atraumatic Ears: hearing grossly normal bilaterally and external ears normal General nose exam: Normal external nose present, no nasal discharge noted and no epistaxis Face and sinus: Yes normal facial exam, No abrasion and No laceration Mouth: no drooling and no muffled voice Teeth image: 2 1. Swollen area with fluctuance - concerning for abscess Eyes General: appearance normal, both eyes and all related structures Periorbital: periorbital findings normal Eyelids: Yes eyelids normal Conjunctivae: conjunctivae normal Pupils: Equal, round and reactive pupils present EOM: EOMs intact bilaterally Neck Neck: Yes normal visual inspection, Yes full ROM and Yes no lymphadenopathy Resp Effort & Inspection: normal respiratory effort and able to speak in complete sentences Neuro General: patient oriented x3, moves all extremities and CN's II-XI intact bilaterally Cranial nerves: Yes Equal, round and reactive pupils present Cognition (Neuro): normal cognition Extrem General: Yes normal to inspection, Yes full ROM and Yes capillary refill normal Psych Appearance: grossly normal Mental Status: mental status grossly normal Affect: normal affect Attitude: cooperative Thought process: Normal thought process present Thought content: Normal thought content present Insight: Good insight present (Psych) Medications Administered Discontinued Medications Generic Name Dose Route Start Last Admin Trade Name Ash PRN Reason Stop Dose Admin Lidocaine HCl 5 ml 02/11/25 11:34 02/11/25 11:44 Lidocaine Hcl 1 % Mpf 5 Ml Vial SUBCUT 02/11/25 11:35 5 ml ONCE ONE Administration Morphine Sulfate 4 mg 02/11/25 11:36 02/11/25 11:44 Morphine Sulfate 4 Mg/Ml Cartridge IVPUSH 02/11/25 11:37 4 mg ONCE ONE Administration Protocol Ondansetron HCl 4 mg 02/11/25 11:36 02/11/25 11:44 Ondansetron Hcl 4 Mg/2 Ml Vial IVPUSH 02/11/25 11:37 4 mg ONCE ONE Administration Procedures Abscess I/D Site: oral Side (if applicable): right Sedation/analgesia: none Local Anesthetic: lidocaine 1% Amount of anesthesia used (mL): 5 Technique: incised with blade Amount of fluid expressed (mL): 7 Sent for culture/gram staining?: No Irrigation: No Packing used?: none Medical Decision Making Medical Decision Making MDM Narrative: Patient is a 59 year old assigned male at with a history of dental caries / poor dentition, anxiety, DM, and depression presenting to the emergency department today with continued right upper dental pain / pressure. Patient's physical exam was as noted in the physical exam portion of this note. Patient's physical exam is consistent with a dental abscess. Patient's blood work showed mildly inflammatory marker elevation but no elevation in WBC count. Patient's clinical presentation is not consistent with sepsis (@1225). Patient's clinical presentation is most consistent with a dental abscess. I explained my physical exam findings as well as all test results to the patient and the patient's . I answered all questions asked by the patient and the patient's . Patient's abscess was drained with an I&D as noted in the procedure note, performed by Dr. Garcia, without incident. Patient states that his symptoms are significantly better now. I stressed the importance of the patient taking his medication as directed (either prescribed or as the over the counter packaging recommends). I stressed the importance of the patient following up with his primary care provider and a dentist. I stressed the importance of the patient returning to the emergency department immediately if his symptoms were to worsen or if he were to develop any dizziness, shortness of breath, difficulty breathing, chest pain, blurry vision, loss of vision, nausea, vomiting, abdominal pain, fever, chills, back pain, or any other complaints. Patient and the patient's verbalized agreement and understanding with this treatment plan and discharge. Differential Diagnosis Differential Diagnoses: The differential diagnosis associated with the presentation includes Dental abscess Dental pain Admission/Observation Consideration of admission/observation: Escalation of care including admission/observation considered Patient would have been admitted to the hospital had his work up had any findings where hospital admission was appropriate and his clinical presentation warranted hospital admission. Lab Data [facility] Lab Attestation statement: I reviewed the patient's lab results. My interpretation of these results are in the [facility] Rationale portion of this note. 02/11/25 11:37 02/11/25 11:37 Labs: Lab Results 02/11/25 Range/Units 11:37 WBC 7.5 (4.8-10.8) X10*3/uL RBC 4.92 (4.60-5.80) X10*6/uL Hgb 14.6 (14.0-18.0) g/dl Hct 42.9 (42.0-52.0) % MCV 87.2 (80.0-98.0) fL MCH 29.7 (27.0-33.0) pg MCHC 34.0 (31.0-36.0) g/dl RDW 12.4 (11.0-16.0) % Plt Count 217 (160-400) X10*3/uL MPV 10.9 (9.4-12.4) fL Immature Gran % (Auto) 0.1 (0.0-0.4) % Neut % (Auto) 71.9 (45-73) % Lymph % (Auto) 21.4 (20-40) % [place] % (Auto) 6.1 (2-11) % Eos % (Auto) 0.4 (0-4) % Baso % (Auto) 0.1 (0-2) % Lymph # (Auto) 1.6 (1.2-4.9) X10*3/uL [place] # (Auto) 0.5 (0.1-1.2) X10*3/uL Eos # (Auto) 0.0 (0.0-0.4) X10*3/uL Baso # (Auto) 0.0 (0.0-0.2) X10*3/uL Abs Immat Gran (auto) 0.01 (0.00-0.03) X10*3/uL Absolute Neuts (auto) 5.4 (2.0-8.3) x10*3/uL Absolute Nucleated RBC 0.000 (0.0-0.012) X10*3/uL Nucleated RBC % (auto) 0.0 (0.0-0.2) /100WBC ESR 28 H (0-15) MM/HR Sodium 143 (135-145) mmol/L Potassium 4.1 (3.3-5.1) mmol/L Chloride 107 (96-108) mmol/L Carbon Dioxide 27 (22-29) mmol/L Anion Gap 13 (12-20) BUN 9 (9-16) mg/dL Creatinine 0.55 (0.5-1.4) mg/dL Estim Creat Clear Calc 138.5 Estimated GFR > 60 Random Glucose 99 (60-115) mg/dL Calcium 9.6 (8.4-10.2) mg/dL Total Bilirubin 0.6 (0.0-1.0) mg/dL AST 29 (5-37) U/L ALT 18 (0-40) U/L Alkaline Phosphatase 184 H (39-117) U/L C-Reactive Protein 1.56 H (< or = 0.50) mg/dL Total Protein 8.1 H (6.5-8.0) g/dL Albumin 4.3 (3.5-5.0) g/dL Independent Historian Clinical information obtained from an independent historian. History obtained from or confirmed by: Spouse (patient's provided additional history and confirmed the history provided by the patient.) Tests considered The following testing was considered but not selected: I considered obtaining a CT scan of the face to view the extent of the abscess however, my attending physician Dr. Garcia, recommended against it given his symptoms vastly improved s/p I&D. Prescription Management I considered prescription management with: Antibiotic (patient already prescribed appropriate ABX) Chronic Conditions Patient?s care impacted by: Diabetes Discharge Plan Discharge Clinical Impression: Dental abscess Patient Disposition: Home, Self-Care Instructions: Dental Abscess (ED), Abscess Incision and Drainage (DC) Additional Instructions: Continue taking your antibiotic as prescribed. Follow up with a dentist. Follow up with your primary care provider. Return to the emergency department immediately if your symptoms worsen or if you develop any dizziness, shortness of breath, difficulty breathing, chest pain, blurry vision, loss of vision, nausea, vomiting, abdominal pain, fever, chills, back pain, or any other complaints. Siga tomando el antibi?naveen forest lary se le khan recetado. Kong un seguimiento con un dentista. Kong?seguimiento?con braswell m?dico de atenci?n primaria. Acuda inmediatamente al servicio de urgencias si toney s?ntomas empeoran o si presenta falta de aliento, dificultad para respirar, dolor tor?cico, mareos, aturdimiento, dolor de espalda, dolor abdominal, fiebre, escalofr?os o cualquier otro s?ntoma. Call or visit any of the clinics below to establish with a dentist: [facility] [address] [place] [address] [facility] [address] [place] [address] [facility] [address] [facility], [address] [address] [place] [address] [facility] [address] [facility] [address] [place] [address] [facility] [address] [place] [address] [place] [address] [place] [address] Please see the information below about our Patient Portal. If you are not yet enrolled in the [facility] Patient Portal, you will receive an enrollment email invitation following your visit to any [facility] setting. You may also self-enroll in the Patient Portal by visiting our website: [email or web address] The following information is required to access the Patient Portal: - Your [facility] Medical Record Number - Your personal home email address (must match what is in your electronic medical record, Registration staff can assist with this) - Name - Date of Capabilities of the Patient Portal: - Message some providers - View upcoming appointments - Access your health summary, medical history, and visit history - View current conditions and allergies - View procedure and lab results - View your medications, including guidelines, side effects, and precautions - Complete pre-appointment questionnaires requested by your provider - Ready summary reports of your office visits and procedures To access the Patient Portal Mobile Aiyana, follow these directions: - Search [employer] in the Aiyana Store or [employer] Store - Download the Aiyana - Search for [facility] - Enter your login/password Portal del paciente Si usted no esta inscrito en el portal de pacientes de [facility], recibira jann invitacion de inscripcion despues de braswell visita al [facility] o al [facility] via correo electronico. Tambien puede inscribirse voluntariamente en el portal de pacientes visitando nuestra pagina web: [email or web address] La siguiente informacion sera requerida para acceder al portal: - [place] william de historia medica de [facility] - [place]well direccion de correo electronico personal - Nombre - Fecha de nacimiento Capacidades: Las siguientes capacidades estan disponibles en el portal de pacientes: - Enviar mensajes a algunos doctores - Verificar proximas citas - Acceso a braswell historial de frida, registro medico e historial de visitas - Fran las condiciones actuales y alergias fran procedimientos y resultados del laboratorio - Fran toney medicamentos, incluyendo las pautas - Efectos secundarios y precauciones - Completar o llenar formularios / cuestionarios de - Citas solicitadas por braswell doctor - Leer los resumenes de reportes medicos de toney visitas y procedimientos Lary acceder a la aplicacion movil: - Busque [employer] en la Aiyana Store o [employer] Store - Descargue la aplicacion - [facility] - Ingrese braswell nombre de usuario / Contrasena Prescriptions: No Action tramadol 50 mg tablet 50 mg PO BID PRN (Reason: pain) Qty: 10 0RF prednisone 20 mg tablet 20 mg PO DAILY 5 Days Qty: 5 0RF lidocaine 5 % adhesive patch,medicated 1 patch topical DAILY PRN (Reason: pain) Qty: 15 0RF Rx Instructions: leave on most painful area for up to 12 hrs clindamycin HCl 150 mg capsule 450 mg PO Q8H 7 Days Qty: 63 0RF oxycodone-acetaminophen [Percocet] 5-325 mg tablet 1 tab PO Q8H PRN (Reason: pain (scale score 7-10)) 3 Days Qty: 9 0RF Rx Instructions: Partial Fill upon patient request. amoxicillin 500 mg tablet 500 mg PO Q8H Qty: 21 0RF tramadol 50 mg tablet 50 mg PO TID PRN (Reason: severe pain (scale score 7-10)) Qty: 12 0RF clindamycin HCl 150 mg capsule 450 mg PO Q8H 7 Days Qty: 63 0RF tramadol 50 mg tablet 50 mg PO TID PRN (Reason: pain (scale score 7-10)) Qty: 10 0RF clindamycin HCl 300 mg capsule 600 mg PO TID Qty: 21 0RF oxycodone-acetaminophen [Percocet] 5-325 mg tablet 1 tab PO TID PRN (Reason: severe pain (scale score 7-10)) Qty: 15 0RF Rx Instructions: Partial Fill upon patient request. oxycodone-acetaminophen [Percocet] 5-325 mg tablet 1 tab PO TID PRN (Reason: severe pain (scale score 7-10)) Qty: 15 0RF Rx Instructions: Partial Fill upon patient request. ibuprofen 600 mg tablet 600 mg PO Q6H PRN (Reason: pain) Qty: 45 0RF prednisone 20 mg tablet 40 mg PO DAILY Qty: 10 0RF amoxicillin 500 mg tablet 500 mg PO TID Qty: 21 0RF oxycodone 5 mg tablet 5 mg PO Q6H PRN (Reason: severe pain (scale score 7-10)) Qty: 12 0RF Rx Instructions: Partial Fill upon patient request. amoxicillin-pot clavulanate 875-125 mg tablet 1 tab PO TID Qty: 21 0RF lidocaine HCl [Lidocaine Viscous] 2 % solution 1 appl mucous membrane TID PRN (Reason: mouth pain) Qty: 100 0RF Rx Instructions: Swish and spit out 5mL up to three times daily as needed for pain Referrals: Name,MD Paxton [Primary Care Provider] - Print Language: Hebrew
[2025-02-11 11:40] LABS: MANUAL DIFF FLAG NO
[2025-02-11 11:44] LABS: Basophils Percent Auto 0.1 % (0-2); Eosinophils Percent Auto 0.4 % (0-4); Hematocrit 42.9 % (42.0-52.0); Hemoglobin 14.6 g/dl (14.0-18.0); Imm Gran Abs Auto 0.01 X10*3/uL (0.00-0.03); Imm Gran Pct Auto 0.1 % (0.0-0.4); Lymphocytes Absolute Auto 1.6 X10*3/uL (1.2-4.9); Lymphocytes Percent Auto 21.4 % (20-40); Mean Corpuscular Hemoglobin 29.7 pg (27.0-33.0); Mean Corpuscular Volume 87.2 fL (80.0-98.0); Mean Platelet Volume 10.9 fL (9.4-12.4); Monocytes Absolute Auto 0.5 X10*3/uL (0.1-1.2); Monocytes Percent Auto 6.1 % (2-11); Neutrophils Absolute Auto 5.4 x10*3/uL (2.0-8.3); Neutrophils Percent Auto 71.9 % (45-73); Platelet Count 217 X10*3/uL (160-400); Red Blood Count 4.92 X10*6/uL (4.60-5.80); Red Cell Distribution Width 12.4 % (11.0-16.0); White Blood Count 7.5 X10*3/uL (4.8-10.8)
[2025-02-11] MEDS: Lidocaine HCl 1 % MPF 5 ML VIAL SUBCUT (11:44)
[2025-02-11] MEDS: ondansetron HCL 4 MG/2 ML VIAL IVPUSH (11:44)
[2025-02-11] MEDS: Morphine Sulfate 4 MG/ML CARTRIDGE IVPUSH (11:44)
[2025-02-11 11:55] LABS: Alanine Aminotransferase 18 U/L (0-40); Albumin Level 4.3 g/dL (3.5-5.0); Alkaline Phosphatase 184 U/L (39-117); Anion Gap 13 (12-20); Aspartate Amino Transferase 29 U/L (5-37); Bilirubin Total 0.6 mg/dL (0.0-1.0); Blood Urea Nitrogen 9 mg/dL (9-16); C Reactive Protein 1.56 mg/dL (< or = 0.50); Calcium 9.6 mg/dL (8.4-10.2); Carbon Dioxide 27 mmol/L (22-29); Chloride 107 mmol/L (96-108); Creatinine Clr Calc Pharmacy 138.5; Estimated Glomerular Filt Rate > 60; Glucose Random 99 mg/dL (60-115); Potassium 4.1 mmol/L (3.3-5.1); Sodium 143 mmol/L (135-145); Total Protein 8.1 g/dL (6.5-8.0)
[2025-02-11 12:18] LABS: Erythrocyte Sedimentation Rate 28 MM/HR (0-15)
--- OUTSIDE RECORDS SUMMARY | 2025-02-11 12:18 | XMS_ITS | Encounter Summary ---
Author Organization [employer] Address [address] [place] [address] Care Team Providers Care Undercoater Name Role Phone Name, Paxton GANT Primary Care Provider [phone] Kathe Soriano PharmD Unavailable [phone] Encounter Details Date Type Department Care Team (Latest Contact Info) Description 12/24/2020 Abstract [facility] CONVERSIONS Dental, Provider, DDS Social History Tobacco [...] AM EDT Office Visit [facility] MEDICINE [address] [place] [address] Name, MD Paxton [address] [place] [address] 03/19/2025 9:00 AM EDT Office Visit [facility] ADULT DENTAL [address] [place] [address] Ignacio Woody DDS [address] [place] [address] documented as of this encounter Visit Diagnoses Not on filedocumented in this encounter Care Teams Undercoater Relationship Specialty Start Date End Date Name, MD Paxton [address] [place] [address] PCP - General Family Medicine 04/08/16 Kathe Soriano, RimaD [address] [place] [address] Pharmacist Internal Medicine 06/15/22 documented as of this encounter
--- OUTSIDE RECORDS SUMMARY | 2025-02-11 12:18 | XMS_ITS | Encounter Summary ---
Author Organization [employer] Address [address] [facility] 7t [place] [address] Care Team Providers Care Entry Level Mechanical Engineer Name Role Phone Name, Paxton GANT Primary Care Provider [phone] Kathe Soriano PharmD Unavailable [phone] Reason for Visit * Reason Comments Dental Pain Encounter Details Date Type Department Care Team (Late st Contact Info) Description 02/09/2025 1:15 PM EDT Office Visit [facility] ADULT DENTAL [address] [place] [address] Ignacio Woody, NOBLES [address] [place] [address] Dental abscess (Primary Dx) Social History Tobacco Use Types Packs/Day Years [...] the past 12 months, has t he [employer] gas, oil or water [employer] threatened to shut off services in your [...] Sign Reading Time Taken Comments Blood Pressure 126/74 02/09/2025 1:10 PM EDT Pulse - - Temperature - - Respiratory Rate - - Oxygen Saturation - - Inhaled Oxygen Concentration - - Weight - - Height - - Body Mass Index - - documented in this encounter Progress Notes * Ignacio Woody DDS - 02/09/2025 1:15 PM EDT Dental procedures in this visit [id number] - PANORAMIC RADIOGRAPHIC IMAGE (Completed) Service provider: Ignacio Woody DDS Billing provider: Ignacio Woody DDS [id number] - NO CHARGE VISIT (Completed) Service provider: Ignacio Woody DDS Billing provider: Ignacio Woody DDS Patient ID: Calvin Clark is a 59 y.o. male. Time Out: Timeout Date: 02/09/25, Timeout Time: 1302 (pt came in with a swollem right side in alot of pain.) Location: [facility] Tooth: Maxilla and #6 Procedure: X-rays and Emergency Verified the above with patient, assistant professor surgical technology, and provider. Confirmed via patient's chart, intraorally and by radiographs. Medical Records Director: not applicable Chief Complaint Patient presents with Dental Pain Medical Hx: Vitals: Blood pressure 126/74. Medical History[1] Medications: Encounter Medications[2] Subjective: Pain: Duration: 5 days Objective: Tooth: # 6 & 7 Radiographs Taken: Panoramic Radiographic Findings: Decay and Periapical Radiolucency Clinical Findings: Extraoral inflammation affecting right naso-infraorbital region, no fever, pain to palpation, no drainage point intra or extraoral noticed. Swelling: Extraoral swelling, Tenderness, and Intraoral swelling Endo Testing: No Perio: Erythematous and edematous gingival region Other Findings: Pt called earlier with increased pain, stating that Abx and ANX previously prescribed aren't working. Diagnosis: Dental abscess, Assessment/Plan: EOE X ray New prescription, advised to go to hospital E.R. if condition is not improving with the new ABX or worsen . Prescriptions: Sent to [facility] on file with increased dosis Pt tolerated procedure well, all questions answered. Dismissed in good condition. 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 documented in this encounter Plan of Treatment Upcoming Encounters Date Type Department Care Team (Late st Contact Info) Description 02/22/2025 11:15 AM EDT Office Visit [facility] MED[facility] [address] [place] [address] Name, MD Paxton [address] [place] [address] 03/19/2025 9:00 AM EDT Office Visit [facility] AD[facility] [address] [place] [address] Ignacio Woody DDS [address] [place] [address] documented as of this encounter Goals Goal Patient Goal Type Associated Problems Recent Progress Patient-Stated? Author Blood Pressure < 140/90 Blood Pressure 126/74(2024 1:10 PM EDT) No Kathe Soriano, PharmD Hemoglobin A1c < 7 Result Component 5.6( 9:08 AM EDT) No Kathe Soriano PharmD documented as of this encounter Procedures Procedure Name Priority Date/Time Associated Diagnosis Comments NO CHARGE VISIT Routine 02/09/2025 1:15 PM EDT PANORAMIC RADIOGRAPHIC IMAGE Routine 02/09/2025 1:15 PM EDT documented in this encounter Visit Diagnoses Diagnosis Dental abscess- Primary Periapical abscess without sinus documented in this encounter Additional Health Concerns Assessment Noted Time PHQ-9 Depression Total Score: 0 12/07/19 24 10:36 AM EDT documented as of this encounter Care Teams Entry Level Mechanical Engineer Relationship Specialty Start Date End Date Name, MD Paxton [address] [place] [address] PCP - General Family Medicine 04/08/16 Kathe Soriano PharmD [address] [place] [address] Pharmacist Internal Medicine 06/15/22 documented as of this encounter
--- OUTSIDE RECORDS SUMMARY | 2025-02-11 12:18 | XMS_ITS | Encounter Summary ---
Author Organization [employer] Address [address] [facility] 7t [place] [address] Care Team Providers Care Helmet Coverer Name Role Phone Name, Paxton GANT Primary Care Provider [phone] Kathe Soriano PharmD Unavailable [phone] Encounter Details Date Type Department Care Team (Late st Contact Info) Description 02/11/2025 Orders Only GENERIC EXTERNAL DATA DEPARTMENT Provider, Generic External Data Social History Tobacco Use Types Packs/Day Years [...] Description 02/22/2025 11:15 AM EDT Office Visit [facility] [address] [place] [address] Name, MD Paxton [address] [place] [address] 03/19/2025 9:00 AM EDT Office Visit [facility] ADULT DENTAL [address] [place] [address] Ignacio Woody DDS [address] [place] [address] documented as of this encounter Goals Goal Patient Goal Type Associated Problems Recent Progress Patient-Stated? Author Blood Pressure < 140/90 Blood Pressure 126/74(2024 1:10 PM EDT) No Puia, Kathe, PharmD Hemoglobin A1c < 7 Result Component 5.6( 9:08 AM EDT) No Puia, Kathe, PharmD documented as of this encounter Procedures Procedure Name Priority Date/Time Associated Diagnosis Comments CBC WITH AUTO DIFFERENTIAL Routine 02/11/2025 11:37 AM EDT C-REACTIVE PROTEIN Routine 02/11/2025 11 :37 AM EDT COMPREHENSIVE METABOLIC PANEL Routine 02/11/2025 11:37 AM EDT documented in this encounter Results * (ABNORMAL) C-reactive Protein (02/11/2025 11:37 AM EDT) C Reactive Protein 1.56(H) < or = 0.50 mg/dL [facility] 02/11/2025 11:3 7 AM EDT 02/11/2025 11:39 AM EDT us Generic External Data Provider LAB BLOOD ORDERAB LES Final Result [facility] [address] [place] [phone] * (ABNORMAL) Comprehensive Metabolic Panel (02/11/2025 11:37 AM EDT) Pathologist [facility] Sodium 143 135 - 145 mmol/L [facility] Potassium 4.1 3.3 - 5.1 mmol/L [facility] Chloride 107 96 - 108 mmol/L [facility] Carbon Dioxide 27 22 - 29 mmol/L [facility] Anion Gap 13 12 - 20 [facility] Urea Nitrogen (BUN) 9 9 - 16 mg/dL [facility] Creatinine, Serum 0.55 0.5 - 1.4 mg/dL [facility] Creatinine Clr Calc Pharmacy 138.5 [facility] Comment:eGFR (calculated fro m the MDRD study equation) and eCrCl(calculated from the Cockcroft-Gault equation) are based ondifferent parameters and may not yield comparable results.If eCrCl result is absurd, please check patient'sheight/weight. Estimated Glomerular Filt Rate >60 [facility] Comment:Chronic Kidney Disea se: Estimated GFR < 60 mL/min/1.55a6Befwln Kidney Disease: Estimated GFR < 15 mL/min/1.73m2 Glucose 99 60 - 115 mg/dL [facility] Calcium 9.6 8.4 - 10.2 mg/dL [facility] Bilirubin, Total 0.6 0.0 - 1.0 mg/dL [facility] Aspartate Amino Transferase 29 5 - 37 U/L [facility] Alanine Aminotransferase 18 0 - 40 U/L [facility] Total Protein 8.1(H) 6.5 - 8.0 g/dL [facility] Albumin Level 4.3 3.5 - 5.0 g/dL [facility] Alkaline Phosphatase 184(H) 39 - 117 U/L [facility] 02/11/2025 11:3 7 AM EDT 02/11/2025 11:39 AM EDT us Generic External Data Provider LAB BLOOD ORDERAB LES Final Result [facility] [address] [place] [address] [phone] * CBC auto differential (02/11/2025 11:37 AM EDT) White Blood Count 7.5 4.8 - 10.8 X10*3/uL [facility] Red Blood Count 4.92 4.60 - 5.80 X10*6/uL [facility] Hemoglobin 14.6 14.0 - 18.0 g/dl [facility] Hematocrit 42.9 42.0 - 52.0 % [facility] Mean Corpuscular Volume 87.2 80.0 - 98.0 fL [facility] Mean Corpuscular Hemoglobin 29.7 27.0 - 33.0 pg [facility] Mean Corpuscular HGB Conc 34.0 31.0 - 36.0 g/dl [facility] Red Cell Distribution Width 12.4 11.0 - 16.0 % [facility] Platelet Count 217 160 - 400 X10*3/uL [facility] Mean Platelet Volume 10.9 9.4 - 12.4 fL [facility] Neutrophils Percent Auto 71.9 45 - 73 % [facility] Imm Gran Pct Auto 0.1 0.0 - 0.4 % [facility] Lymphocytes Percent Auto 21.4 20 - 40 % [facility] Monocytes Percent Auto 6.1 2 - 11 % [facility] Eosinophils Percent Auto 0.4 0 - 4 % [facility] Basophils Percent Auto 0.1 0 - 2 % [facility] NRBC Pct Auto 0.0 0.0 - 0.2 /100WBC [facility] Neutrophils Absolute Auto 5.4 2.0 - 8.3 x10*3/uL [facility] Imm Gran Abs Auto 0.01 0.00 - 0.03 X10*3/uL [facility] Lymphocytes Absolute Auto 1.6 1.2 - 4.9 X10*3/uL [facility] Monocytes Absolute Auto 0.5 0.1 - 1.2 X10*3/uL [facility] Eosinophils Absolute Auto 0.0 0.0 - 0.4 X10*3/uL [facility] Basophils Absolute Auto 0.0 0.0 - 0.2 X10*3/uL [facility] NRBC Abs Auto 0.000 0.0 - 0.012 X10*3/uL [facility] 02/11/2025 11:3 7 AM EDT 02/11/2025 11:39 AM EDT us Generic External Data Provider LAB BLOOD ORDERAB LES Final Result Performing Organization Address City/State/[facility] Co de Phone Number [facility] [address] [place] [address] [phone] documented in this encounter Visit Diagnoses Not on filedocumented in this encounter Additional Health Concerns Assessment Noted Time PHQ-9 Depression Total Score: 0 12/07/19 24 10:36 AM EDT documented as of this encounter Care Teams Helmet Coverer Relationship Specialty Start Date End Date Name, MD Paxton [address] [place] [address] PCP - General Family Medicine 04/08/16 Kathe Soriano PharmD [address] [place] [address] Pharmacist Internal Medicine 06/15/22 documented as of this encounter
--- OUTSIDE RECORDS SUMMARY | 2025-02-11 12:18 | XMS_ITS | Encounter Summary ---
Author Organization [employer] Address [address] [facility] 7t [place] [address] Care Team Providers Care Datacap Developer Name Role Phone Name, Paxton GANT Primary Care Provider [phone] Kathe Soriano PharmD Unavailable Encounter Details Date Type Department Care Team ([facility] Contact Info) Description 09/22/2022 Orders Only [facility] MEDICINE [address] [place] [phone] Kathe Soriano, PharmD [address] [place] [address] Social History Tobacco Use Types Packs/Day Years [...] Description 02/22/2025 11:15 AM EDT Office Visit [facility] MEDICINE [address] [place] [address], [place] [address] Name, MD Paxton [address] [place] [address] 03/19/2025 9:00 AM EDT Office Visit [facility] ADULT DENTAL [address] [place], [place] [phone] Ignacio Woody DDS [address] [place] [address] documented as of this encounter Visit Diagnoses Not on filedocumented in this encounter Additional Health Concerns Assessment Noted Time PHQ-9 Depression Total Score: 0 09/09/20 10:25 AM EST documented as of this encounter Care Teams Datacap Developer Relationship Specialty Start Date End Date Name, MD Paxton [address] [place] [address] PCP - General Family Medicine 04/08/16 Kathe Soriano PharmD [address] [place] [phone] Pharmacist Internal Medicine 06/15/22 documented as of this encounter
--- OUTSIDE RECORDS SUMMARY | 2025-02-11 12:18 | XMS_ITS | Encounter Summary ---
Author Organization [employer] Address [address] [facility] 7t [place] [address] Care Team Providers Care Professional Services Specialist Name Role Phone Name, Paxton GANT Primary Care Provider [phone] Kathe Soriano PharmD Unavailable [phone] Reason for Visit * Reason Onset Date Comments Med Refill PCP no longer prescribing Percocet 11/04/2022 Reminded pt of our previous conversation 10/28/22 about being weaned off Percocet. See note Encounter Details Date Type Department Care Team (Late st Contact Info) Description 11/04/2022 Telephone [facility] MEDICINE [address] [place] [address] Name, MD Paxton [address] [place], [place] [phone] Med Refill; PCP no longer prescribing Percocet [...] 11/04/2022 8:35 AM EST TC via PI# [id number], pt called asking for refill of Percocet [...] 02/22/2025 11:15 AM EDT Office Visit [facility] MED[facility]INE [address] [place] [phone] NamePaxton MD [address] [place] [address] 03/19/2025 9:00 AM EDT Office Visit [facility] ADULT DENTAL [address] [place] [address] Ignacio Woody DDS [address] [place] [address] documented as of this encounter Visit Diagnoses Diagnosis Chronic low back pain, unspecified back pain laterality, unspecified whether sciatica present documented in this encounter Additional Health Concerns Assessment Noted Time PHQ-9 Depression Total Score: 0 09/09/20 22 10:25 AM EST documented as of this encounter Care Teams Professional Services Specialist Relationship Specialty Start Date End Date NamePaxton MD [address] [place] [address] PCP - General Family Medicine 04/08/16 Kathe Soriano, Machelle [address] [place] [address] Pharmacist Internal Medicine 06/15/22 documented as of this encounter
--- OUTSIDE RECORDS SUMMARY | 2025-02-11 12:18 | XMS_ITS | Encounter Summary ---
Author Organization [employer] Address [address] [facility] 7t [place] [address] Care Team Providers Care Shampoo Technician Name Role Phone Name, Paxton GANT Primary Care Provider [phone] Kathe Soriano PharmD Unavailable [phone] Encounter Details Date Type Department Care Team ([facility] Contact Info) Description 11/27/2022 Orders Only [facility] MED[facility]INE [address] [place] [address] Kristin Collazo, CHEMA [address] [place] [address] Social History Tobacco Use Types Packs/Day Years [...] Upcoming Encounters Date Type Department Care Team ([facility] Contact Info) Description 02/22/2025 11:15 AM EDT Office Visit [facility] [address] [place] [address] Name, MD Paxton [address] [place] [address] 03/19/2025 9:00 AM EDT Office Visit [facility] ADULT DENTAL [address] [place], [place] [phone] Ignacio Woody DDS [address] [place], [place] [phone] documented as of this encounter Visit Diagnoses Not on filedocumented in this encounter Additional Health Concerns Assessment Noted Time PHQ-9 Depression Total Score: 0 09/09/20 10:25 AM EST documented as of this encounter Care Teams Shampoo Technician Relationship Specialty Start Date End Date Name, MD Paxotn [address] [place] [address] PCP - General Family Medicine 04/08/16 Kathe Soriano, Machelle [address] [place] [address] Pharmacist Internal Medicine 06/15/22 documented as of this encounter
--- OUTSIDE RECORDS SUMMARY | 2025-02-11 12:18 | XMS_ITS | Encounter Summary ---
Author Organization [employer] Address [address] [facility] 7t [place] [address] Care Team Providers Care [employer]oc [employer] Operations Staff Officer Name Role Phone Name, Paxton GANT Primary Care Provider [phone] Kathe Soriano PharmD Unavailable [phone] Encounter Details Date Type Department Care Team (Late st Contact Info) Description 11/26/2022 Orders Only [facility] MED[facility]INE [address] [place] [address] Name, MD Paxton [address] [place] [address] Social History Tobacco Use Types Packs/Day Years [...] Description 02/22/2025 11:15 AM EDT Office Visit [facility] MED[facility] [address] [place] [address] Name, MD Paxton [address] [place] [address] 03/19/2025 9:00 AM EDT Office Visit [facility] ADULT DENTAL [address] [place], [place] [phone] Ignacio Woody DDS [address] [place], [place] [phone] documented as of this encounter Visit Diagnoses Not on filedocumented in this encounter Additional Health Concerns Assessment Noted Time PHQ-9 Depression Total Score: 0 09/09/20 10:25 AM EST documented as of this encounter Care Teams Aoc [employer] Operations Staff Officer Relationship Specialty Start Date End Date Name, [place] [address] PCP - General Family Medicine 04/08/16 Kathe Soriano, Machelle [address] [place] [address] Pharmacist Internal Medicine 06/15/22 documented as of this encounter
--- OUTSIDE RECORDS SUMMARY | 2025-02-11 12:18 | XMS_ITS | Patient Health Record ---
Author Organization [facility] Address [address] [place], [place] [id number] Care Team Providers Care Monitoring Coordinator Name Role Phone No, PCP Primary Care Provider [place] Unavailable [phone] Reason For Referral No Information Plan Of Treatment No Information Insurance Providers Payer Name Payer Address Payer Phone Subscriber Number Group Number Insured Name Patient Relationship to Insured Coverage Start Date Coverage End Date [place] Medicaid Standard [address] [place] [address] [id number] Calvin Clark Self - patient is the insured 2
--- OUTSIDE RECORDS SUMMARY | 2025-02-11 12:18 | XMS_ITS | Encounter Summary ---
Author Organization [employer] Address [address] [facility] 7t [place] [address] Care Team Providers Care Senior Facilities Manager Name Role Phone Name, Paxton GANT Primary Care Provider [phone] Kathe Soriano PharmD Unavailable Reason for Visit * Reason Onset Date Comments april recall 02/08/2025 Encounter Details Date Type Department Care Team (Late st Contact Info) Description 02/08/2025 Telephone [facility] [address] [place] [address] Yeimy LentzDUNDEE, [place] april recall Social History Tobacco Use Types Packs/Day Years [...] got money to buy more: Sometimes True 12/08/ 2023 Within the past 12 months,th e food [...] encounter Miscellaneous Notes * Telephone Encounter - Yeimy Lentz [place] - 02/08/2025 11:19 AM EDT Telephone call to patient to schedule a recall appointment. No answer, Left voicemail to return call to clinic.. Recall letter sent. Visit type: Physical Appointment notes: Physical Month due: April With: Name Please schedule appointment above if patient returns call documented in this encounter Plan of Treatment Upcoming Encounters Date Type Department Care Team (Late st Contact Info) Description 02/22/2025 11:15 AM EDT Office Visit [facility] [address] [place] [address] Name, MD Paxton [address] [place] [address] 03/19/2025 9:00 AM EDT Office Visit [facility] ADULT DENTAL [address] [place] [address] Ignacio Woody DDS [address] [place] [address] documented as of this encounter Goals Goal Patient Goal Type Associated Problems Recent Progress Patient-Stated? Author Blood Pressure < 140/90 Blood Pressure 126/74(2024 1:10 PM EDT) No Kathe Soriano PharmTami Hemoglobin A1c < 7 Result Component 5.6( 9:08 AM EDT) No Kathe Soriano PharmD documented as of this encounter Visit Diagnoses Not on filedocumented in this encounter Additional Health Concerns Assessment Noted Time PHQ-9 Depression Total Score: 0 12/07/19 24 10:36 AM EDT documented as of this encounter Care Teams Senior Facilities Manager Relationship Specialty Start Date End Date Name, MD Paxton [address] [place] [address] PCP - General Family Medicine 04/08/16 Kathe Soriano PharmD [address] [place] [address] Pharmacist Internal Medicine 06/15/22 documented as of this encounter
--- OUTSIDE RECORDS SUMMARY | 2025-02-11 12:18 | XMS_ITS | Clinical Summary ---
Author Organization [employer] Address [address] [facility] 7[address] [place] [address] Care Team Providers Care Behavioral Psychologist Name Role Phone Name, Paxton GANT Primary Care Provider [phone] Kathe Soriano PharmD Unavailable [phone] Allergies No known active allergies Medications [...] stripIndications :Type II diabetes mellitus with complication ([facility]) Use to test blood sugar once daily as directed 100 strip 5 Active TRUEplus Lancets 33G miscIndications: Type II diabetes mellitus with complication ([facility]) USE DIRECTED TO TEST BLOOD [...] February 02, 2025. 56 tablet 025 Active acetaminophen (Tylenol 8 Hour) 650 MG ER tablet Take 1 tablet (650 mg) by mouth every 8 (eight) hours if needed for moderate pain for up to 10 days. Do not crush, chew, or split. 15 tablet 025 2024 Active clindamycin (Cleocin) 300 MG capsuleIndicatio ns:Dental abscess Take 1 capsule (300 mg) by mouth 4 times daily for 7 days. 28 capsule 025 2024 Active ibuprofen 600 MG tablet Take 1 tablet (600 mg) by mouth 3 times daily. 90 tablet Active Trulicity 0.75 MG/0.5ML solution auto-injector INJECT ONE PEN (=0.75MG) SUBCUTANEOUSLY ONCE A WEEK DIRECTED 2 mL 5 024 2024 Discontinued oxyCODONE-acetam inophen (Percocet) 5-325 MG tabletIndication s:Neuropathic pain, leg, bilateral Take 1 tablet by mouth every 12 (twelve) hours if needed for severe pain. 56 tablet 025 2024 Discontinued(R eorder (will not trigger notification to Pharmacy)) clindamycin (Cleocin) 150 MG capsule Take 1 capsule (150 mg) by mouth 4 times daily for 7 days. 28 capsule 025 2024 Discontinued ibuprofen 400 MG tablet Take 1 tablet (400 mg) by mouth every 6 (six) hours if needed for moderate pain for up to 10 days. 15 tablet 025 2024 Discontinued Active Problems Problem Noted Date Diagnosed Date Dental abscess 02/09/2025 Class 1 obesity 02/05/2025 Graves' disease 01/09/2025 Allergy to pollen 01/04/2025 Long-term current use of opiate analgesic 2024 Overview (10/31/2024): Medication: Percocet 5-325 mg Q12H Indication: lumbar disc bulge, bilateral neuropathic leg pain Last DIRECTOR PRINT Agreement: Hyperthyroidism 08/02/2024 Dental caries 04/01/2023 Sciatica [...] modalities -UTOX as expected, forgot pills. See documentation engineer Recurrent falls 01/27/2017 Urinary incontinence 01/27/2017 ED [...] Encounters Date Type Department Care Team Description 02/11/2025 Orders Only GENERIC EXTERNAL DATA DEPARTMENT Provider, Generic External Data 02/09/2025 1:15 PM EDT Office Visit [facility] [address] [place] [address] Ignacio Woody DDS Dental abscess (Primary Dx) 02/09/2025 Telephone [facility] [address] [place] [address] Shaylee Nolasco, NOBLES more swollen and more pain than before 02/08/2025 Telephone [facility] [address] [place] [address] Yeimy Lentz NM april02/05/2025 10:00 AM EDT Office Visit [facility] [address] [place] [address] Shaylee Nolasco DDS Rampant dental caries (Primary Dx); Dental abscess 02/05/2025 9:00 AM EDT Office Visit [facility] [address] [place] [address] Gutierrez Govea MD Dental infection (Primary Dx); Hypertension, unspecified type 01/30/2025 Refill [facility] [address] [place] [address] Paxton Goldstein MD 01/29/2025 Refill [facility] [address] [place] [address] Paxton Goldstein MD Neuropathic pain, leg, bilateral 01/09/2025 Orders Only [facility] [address] [place] [address] Paxton Goldstein MD Graves' disease (Primary Dx) 01/04/2025 9:00 AM EDT Office Visit [facility] [address] [place] [address] Paxton Goldstein MD Hyperthyroidism (Primary Dx); Type II diabetes mellitus with complication ([facility]); Hypertension, unspecified type 01/04/2025 Orders Only [facility] [address] [place] [address] Paxton Goldstein MD 01/04/2025 Refill [facility] [address] [place] [address] Paxton Goldstein MD Neuropathic pain, leg, bilateral 01/04/2025 Refill [facility] [address] [place], [place] [phone] Paxton Goldstein MD Neuropathic pain, leg, bilateral 01/04/2025 Travel 12/18/2024 Refill [facility] [address] [place] [address] Paxton Goldstein MD Neuropathic pain, leg, bilateral 12/13/2024 Refill [facility] [address] [place] [address] Paxton Godlstein MD Neuropathic pain, leg, bilateral 12/12/2024 2:40 PM EDT Office Visit [facility] [address] [place] [address] Misty Saenz MD Hordeolum externum of left lower eyelid (Primary Dx); Hypertension, unspecified type 12/11/2024 Telephone [facility] [address] [place], [place] [phone] Paxton Goldstein MD Nurse Triage 12/08/2024 Population Health Risk Score Community [facility] ([facility] Department [address] [phone] Provider, Population Health Generic 12/05/2024 Refill [facility] [address] [place], [place] [phone] Paxton Goldstein MD Neuropathic pain, leg, bilateral 11/21/2024 Refill [facility] [address] [place], [place] [phone] Paxton Goldstein MD Neuropathic pain, leg, bilateral from Last 3 Months Immunizations Immunization Administration Dates Next Due Hep B, adult 08/31/2023,08/03/2023 Influenza injectable quadriv alent IIV4 with preservative 06/23/2018,07/06/2017,06/19/2016 Influenza injectable quadriv alent preservative free 08/03/2023,06/08/2022,09/17/2021,11/01,06/21/2019,09/06/2015 Influenza, High Dose Seasona l, Preservative Free 07/12/2024 Influenza, IIV3, injectable 09/06/2015,1 ,07/04/2013,07/22,12/10/2009 Moderna Covid-19 Vaccine 12+ 02/17/2022, 09/17/2021,03/06/2021,02/06 Pfizer Covid-19 Vaccine 12+ 07/12/2024, Pneumococcal Conjugate PCV 20 06/15/2022 Pneumococcal Polysaccharide [...] Pressure 126/74 02/09/2025 1:10 PM EDT Pulse 90 02/05/2025 8:46 AM EDT [...] Description 02/22/2025 11:15 AM EDT Office Visit [facility] [address] [place] [phone] Name, MD Paxton [address] [place] [address] 03/19/2025 9:00 AM EDT Office Visit [facility] [address] [place], [place] [phone] Ignacio Woody, DDS [address] [place] [address] Health Maintenance Due Date Last Done Comments CT Colonography 1967 Colonoscopy 1967 Colorectal Cancer Screening 1967 FIT DNA/Cologuard 1967 FIT 1967 FOBT 1967 HIV Screening 1967 Sigmoidoscopy 1967 Hepatitis C Screening 1985 Dental Prophylaxis 06/27/2021 12/24/2020, 2014 Dental Oral Exam 09/02/2023 03/02/2023, , 2014 Hepatitis B Vaccines (3 of 3 - 19+ 3-dose series) 02/01/2024 08/31/2023, 08/03/2023 Eye Exam 02/02/2024 02/01/2023, 04/2023, 02/01/2023, Additional history exists Dental X-Ray: Bitewings 03/03/2024 03/02/20 23, 12/24/2020, 12/05/2020, Additional history exists Diabetes: Foot Exam 08/03/2024 08/03/2023, 08/03/2023, 08/03/2023, Additional history exists SDOH Screening 09/03/2024 09/03/2023 Depression Screening 12/06/2024 12/07/2023, 12/07/19 24 Diabetes: Urine Protein Screening 12/07/2024 12/08/2023, 12/21/2022, 02/11/2022, Additional history exists Lipid Panel 12/07/2024 12/08/2023, 07/30, 02/11/2022, Additional history exists Alcohol/Substance Use Screening 05/04/2025 05/04/2024 Diabetes: Hemoglobin A1C 07/06/20252 025, 06/06/2024, 12/07/2023, Additional history exists Tobacco Screening 02/09/2026 02/09/2025 Dental X-Ray: Full Mouth 02/11/2028 025, 12/24/2020, 2014 DTaP/Tdap/Td Vaccines (4 - Td or Tdap) [...] 9:08 AM EDT) No Puia, Kathe, PharmD Procedures Procedure Name Priority Date/Time Associated Diagnosis Comments C-REACTIVE PROTEIN Routine 02/11/2025 11 :37 AM EDT COMPREHENSIVE METABOLIC PANEL Routine 02/11/2025 11:37 AM EDT CBC WITH AUTO DIFFERENTIAL Routine 02/11/2025 11:37 AM EDT NO CHARGE VISIT Routine 02/09/2025 1:15 PM EDT PANORAMIC RADIOGRAPHIC IMAGE Routine 02/09/2025 1:15 PM EDT CASE PRESENTATION, DETAILED AND EXTENSIVE TREATMENT [...] ADULT Routine 12/24/2020 1 2:00 AM EDT from Last 3 Months or Most Recently Relevant to Health Maintenance Results * CBC auto differential (02/11/2025 11:37 AM EDT) Only the most recent of2 resultswithin the time period is included. White Blood Count 7.5 4.8 - 10.8 X10*3/uL [facility] Red Blood Count 4.92 4.60 - 5.80 X10*6/uL [facility] Hemoglobin 14.6 14.0 - 18.0 g/dl [facility] Hematocrit 42.9 42.0 - 52.0 % [facility] Mean Corpuscular Volume 87.2 80.0 - 98.0 fL [facility] Mean Corpuscular Hemoglobin 29.7 27.0 - 33.0 pg [facility] Mean Corpuscular HGB Conc 34.0 31.0 - 36.0 g/dl [facility] Red Cell Distribution Width 12.4 11.0 - 16.0 % [facility] Platelet Count 217 160 - 400 X10*3/uL [facility] Mean Platelet Volume 10.9 9.4 - 12.4 fL [facility] Neutrophils Percent Auto 71.9 45 - 73 % [facility] Imm Gran Pct Auto 0.1 0.0 - 0.4 % [facility] Lymphocytes Percent Auto 21.4 20 - 40 % [facility] Monocytes Percent Auto 6.1 2 - 11 % [facility] Eosinophils Percent Auto 0.4 0 - 4 % [facility] Basophils Percent Auto 0.1 0 - 2 % [facility] NRBC Pct Auto 0.0 0.0 - 0.2 /100WBC [facility] Neutrophils Absolute Auto 5.4 2.0 - 8.3 x10*3/uL [facility] Imm Gran Abs Auto 0.01 0.00 - 0.03 X10*3/uL [facility] Lymphocytes Absolute Auto 1.6 1.2 - 4.9 X10*3/uL [facility] Monocytes Absolute Auto 0.5 0.1 - 1.2 X10*3/uL [facility] Eosinophils Absolute Auto 0.0 0.0 - 0.4 X10*3/uL [facility] Basophils Absolute Auto 0.0 0.0 - 0.2 X10*3/uL [facility] NRBC Abs Auto 0.000 0.0 - 0.012 X10*3/uL [facility] 02/11/2025 11:3 7 AM EDT 02/11/2025 11:39 AM EDT Generic External Data Provider LAB BLOOD ORDERAB LES Final Result Performing Organization Address [facility]/ZIP Co de Phone Number [facility] [address] [place] [phone] * (ABNORMAL) C-reactive Protein (02/11/2025 11:37 AM EDT) Pathologist [facility] C Reactive Protein 1.56(H) < or = 0.50 mg/dL [facility] 02/11/2025 11:3 7 AM EDT 02/11/2025 11:39 AM EDT Generic External Data Provider LAB BLOOD ORDERAB LES Final Result Performing Organization Address [facility]/ZIP Co de Phone Number [facility] [address] [place] [phone] * (ABNORMAL) Comprehensive Metabolic Panel (02/11/2025 11:37 AM EDT) Only the most recent of2 resultswithin the time period is included. Sodium 143 135 - 145 mmol/L [facility] Potassium 4.1 3.3 - 5.1 mmol/L [facility] Chloride 107 96 - 108 mmol/L [facility] Carbon Dioxide 27 22 - 29 mmol/L [facility] Anion Gap 13 12 - 20 [facility] Urea Nitrogen (BUN) 9 9 - 16 mg/dL [facility] Creatinine, Serum 0.55 0.5 - 1.4 mg/dL [facility] Creatinine Clr Calc Pharmacy 138.5 [facility] Comment:eGFR (calculated fro m the MDRD study equation) and eCrCl(calculated from the Cockcroft-Gault equation) are based ondifferent parameters and may not yield comparable results.If eCrCl result is absurd, please check patient'sheight/weight. Estimated Glomerular Filt Rate >60 [facility] Comment:Chronic Kidney Disea se: Estimated GFR < 60 mL/min/1.44i4Aorkto Kidney Disease: Estimated GFR < 15 mL/min/1.73m2 Glucose 99 60 - 115 mg/dL [facility] Calcium 9.6 8.4 - 10.2 mg/dL [facility] Bilirubin, Total 0.6 0.0 - 1.0 mg/dL [facility] Aspartate Amino Transferase 29 5 - 37 U/L [facility] Alanine Aminotransferase 18 0 - 40 U/L [facility] Total Protein 8.1(H) 6.5 - 8.0 g/dL [facility] Albumin Level 4.3 3.5 - 5.0 g/dL [facility] Alkaline Phosphatase 184(H) 39 - 117 U/L [facility] 02/11/2025 11:3 7 AM EDT 02/11/2025 11:39 AM EDT us Generic External Data Provider LAB BLOOD ORDERAB LES Final Result [facility] [address] [place] [phone] * (ABNORMAL) TSH W/Reflex to FT4 (01/04/2025 9:40 AM EDT) TSH reflex Free T4 <0.01(L) 0.32 - 4.0 uIU/mL [facility] Blood Venous blood specimen / Unknown 01/04/2025 9:40 AM EDT 01/04/2025 11:34 AM EDT Paxton Goldstein MD LAB BLOOD ORDERABLES Final Resul t [facility] [address] [place] [phone] * (ABNORMAL) TSI (Thyroid Stimulating Immunoglobulin) (01/04/2025 9:40 AM EDT) Thyroid Stimulating Immunoglobulin 254(A) <140 % baseline [facility] Comment: Thyroid stimulating immunoglobulins (TSI) can [...] hCG concentrationfalls below 40,625 mIU/mL (usually after [id number] gestation).The analytical performance characteristics of thisassay have been determined by [employer], [place]. ??The modificationshave not been cleared or approved by the FDA. ??Thisassay has been validated pursuant to the CLIAregulations and is used for clinical purposes.THIS TEST WAS PERFORMED AT:[employer] [place], [place] ??[id number] CHOWDARY MD,PHD Blood Venous blood specimen / Unknown 01/04/2025 9:40 AM EDT 01/04/2025 11:34 AM EDT us Paxton Goldstein MD LAB BLOOD ORDERABLES Final Resul t Performing Organization Address City/[facility]/ZIP Co de Phone Number [facility] [address] [place] [phone] * (ABNORMAL) T4, Free (01/04/2025 9:40 AM EDT) Free T4 (Free Thyroxine) 2.73(H) 0.71 - 1.85 ng/dL [facility] 01/04/2025 9:40 AM EDT 01/04/2025 11:34 AM EDT us Paxton Goldstein MD LAB BLOOD ORDERABLES Final Resul t Performing Organization Address [facility] Co de Phone Number [facility] [address] [place] [phone] * POCT HGB A1C (01/04/2025 9:08 AM EDT) Hemoglobin A1C 5.6 4.0 - 6.0 % QC Media Lot # [id number] Lot# Expiration Date 110,426 Blood 01/04/2025 9:08 AM EDT Result Sagrario Goldstein MD POINT OF CARE TEST ENTER/EDIT OR DERABLES Final Result * POCT Glucose (01/04/2025 9:07 AM EDT) Glucose Blood, POC 105 60 - 200 mg/dL QC Media Lot # [id number] Lot# Expiration Date 82,625 Blood Capillary blood specimen / Unknown 01/04/2025 9:07 AM EDT Result [facility] us Paxton Goldstein MD POINT OF CARE TEST ENTER/EDIT OR DERABLES Final Result * Albumin, Random Urine W/Creatinine (12/08/2023 8:37 AM EDT) Creatinine, Urine 105.47 mg/dL [facility] Microalbumin Urine 5.0 mg/L [facility] Microalbum Creatinine Ratio Ur 4.7 <30 ug/mg cr [facility] Comment:Albumin/Creatinine R atio Reference Ranges: Normal: < 30 ug/mg creatinine Microalbuminuria: 30 - 300 ug/mg creatinineClinical Albuminuria: > 300 ug/mg creatinine Urine (Urine, Random) 12/08/2023 8:37 AM EDT 12/08/2023 11:26 AM EDT us Paxton Goldstein MD LAB URINE ORDERABLES Final Resul t [facility] [address] [place] [address] [phone] * (ABNORMAL) Lipid Panel, Standard (12/08/2023 8:37 AM EDT) Triglycerides 103 <150 mg/dL [facility] Comment:Desirable Triglyceri de: less than 150 mg/dLBorderline High Triglyceride 150-199 mg/dLHigh Triglyceride: 200-499 mg/dLVery High Triglyceride: greater than or equal to 5OO mg/dL Cholesterol 141 <200 mg/dL [facility] Comment:Desirable Cholestero l: less than 200 mg/dLBorderline High Cholesterol: 200-239 mg/dLHigh Cholesterol: greater than 239 mg/dL LDL Cholesterol Calculated 83 <100 mg/dL [facility] Comment:Desirable LDL: less than 100 mg/dLNear Optimal/Above Optimal LDL: 110- 129 mg/dLBorderline High LDL: 130-159 mg/dLHigh LDL: 160-189 mg/dLVery High LDL: greater than or equal to 190 mg/dL HDL Cholesterol 38(L) >40 mg/dL [facility] Comment:Desirable HDL: great er than 40 mg/dL Note: This HDL assay may give artificially low results in patients with liver disease. Blood Venous blood specimen / Unknown 12/08/2023 8:37 AM EDT 12/08/2023 11:16 AM EDT us Paxton Goldstein MD LAB BLOOD ORDERABLES Final Resul t [facility] [address] [place] [phone] from Last 3 Months or Most Recently Relevant to Health Maintenance Insurance [facility] STANDARD MEDICARE DENTAL-[facility] MEDICAID STAND ADULT Care Teams Behavioral Psychologist Relationship Specialty Start Date End Date Name, MD Paxton [address] [place] [address] PCP - General Family Medicine 04/08/16 Kathe Soriano PharmD [address] [place] [address] Pharmacist Internal Medicine 06/15/22
--- OUTSIDE RECORDS SUMMARY | 2025-02-11 12:18 | XMS_ITS | Encounter Summary ---
Author Organization [employer] Address [address] [facility] [address] [place] [address] Care Team Providers Care Customs Patrol Officer Name Role Phone Name, Paxton GANT Primary Care Provider [phone] Kathe Soriano PharmD Unavailable [phone] Reason for Visit * Reason Onset Date Comments more swollen and more pain than before Encounter Details Date Type Department Care Team (Late st Contact Info) Description 02/09/2025 Telephone [facility] [address] [place], [place] [phone] EnedinaDumontShaylee patel, DDS [address] [place], [place] [phone] more swollen and more pain than before Social History Tobacco Use Types Packs/Day Years [...] encounter Miscellaneous Notes * Telephone Encounter - Kathy Cunningham - 02/09/2025 9:03 AM EDT Patient came in 02/05 for dental emergency. Received script for antibiotics and taking medication as scripted . He is more swollen today than he has been and pain is worse. Can another script be sentin or does patient need to return? documented in this encounter Plan of Treatment Upcoming Encounters Date Type Department Care Team (Late st Contact Info) Description 02/22/2025 11:15 AM EDT Office Visit [facility] [address] [place] [address] Name, MD Paxton [address] [place] [address] 03/19/2025 9:00 AM EDT Office Visit [facility] [address] [place] [address] Ignacio Woody DDS [address] [place] [address] documented as of this encounter Goals Goal Patient Goal Type Associated Problems Recent Progress Patient-Stated? Author Blood Pressure < 140/90 Blood Pressure 126/74(2024 1:10 PM EDT) No PuiaKathe, PharmD Hemoglobin A1c < 7 Result Component 5.6( 9:08 AM EDT) No Kathe Soriano, PharmD documented as of this encounter Visit Diagnoses Not on filedocumented in this encounter Additional Health Concerns Assessment Noted Time PHQ-9 Depression Total Score: 0 12/07/19 24 10:36 AM EDT documented as of this encounter Care Teams Customs Patrol Officer Relationship Specialty Start Date End Date Name, MD Paxton [address] [place] [address] PCP - General Family Medicine 04/08/16 Kathe Soriano PharmD [address] [place] [address] Pharmacist Internal Medicine 06/15/22 documented as of this encounter
--- OUTSIDE RECORDS SUMMARY | 2025-02-11 12:18 | XMS_ITS | Clinical Summary ---
Author Organization [employer] Address [address] [place] [phone] Care Team Providers Care Rn Cvor Name Role Phone Adan Welch MD Primary [...] age to complete this topic Care Teams Rn Cvor Relationship Specialty Start Date End Date Adan Welch MD [address] [place] [address] PCP - General Internal Medicine 12/09/15
--- OUTSIDE RECORDS SUMMARY | 2025-02-11 12:18 | XMS_ITS | Encounter Summary ---
Author Organization [employer] Address [address] [facility] 7t [place] [address] Care Team Providers Care Tax Investigator Name Role Phone Name, Paxton GANT Primary Care Provider Kathe Soriano PharmD Unavailable [phone] Reason for Visit * Reason Comments Med Refill Encounter Details Date Type Department Care Team ([facility] st Contact Info) Description 02/29/2024 Refill [facility] [address] [place], [place] [phone] Name, MD Paxton [address] [place] [address] Peroneal neuropathy, unspecified laterality Social History Tobacco [...] 11:15 AM EDT Office Visit [facility] [address] [place] [address] Paxton Goldstein MD [address] [place] [address] 03/19/2025 9:00 AM EDT Office Visit [facility] [address] [place] [address] Ignacio Woody DDS [address] [place] [address] documented as of this encounter Goals Goal [...] documented as of this encounter Care Teams Tax Investigator Relationship Specialty Start Date End Date Paxton Goldstein MD [address] [place] [address] PCP - General Family Medicine 04/08/16 Kathe Soriano PharmD [address] [place] [address] Pharmacist Internal Medicine 06/15/22 documented as of this encounter
[2025-02-11 12:22] VITALS: BP 162/90; PULSE 122; RESP 18; TEMP 37.5; O2SAT 99
[2025-02-11] MEDS: cefTRIAXone sodium 1 GM VIAL IVPUSH (12:44)
[2025-02-11] MEDS: Acetaminophen 1,000 MG/100 ML PIGGYBACK 400 MG IV (12:44)
[2025-02-11] MEDS: 0.9 % Sodium Chloride 1,000 ML 999 ML IV (12:44)
[2025-02-11 13:05] LABS: Lactic Acid 1.7 mmol/L (0.5-2.0)
[2025-02-11 13:18] VITALS: BP 161/83; PULSE 110; RESP 18; TEMP 37.1; O2SAT 99
[2025-02-11 14:14] VITALS: BP 161/83; PULSE 110; RESP 18; TEMP 37.1; O2SAT 99
== END 2025-02-11 14:14 | disposition home or self-care (01) ==
PROVIDERS: Physician Assistant Medical; Emergency Provider Emergency Medicine; PCP Internal Medicine Geriatric Medicine
DX: K04.7 Periapical abscess without sinus (principal); K08.89 Other specified disorders of teeth and supporting structures
CPT/HCPCS: 36415; 41800; 80053; 83605; 85025; 85652; 86140; 87040; 96361; 96374; 96375; 99284; J0131; J0696; J2003; J2270; J2405

== ENCOUNTER 2025-07-26 09:44 | Outpatient (REF) | payer MEDICARE, MEDICAID, SELFPAY ==
--- OUTSIDE RECORDS SUMMARY | 2025-07-26 11:24 | XMS_ITS | Encounter Summary ---
Author Organization [employer] Address [address] [facility] 7t [place] [address] Care Team Providers Care Aircraft Cabin Cleaner Name Role Phone Name, Paxton GANT Primary Care Provider [phone] Kathe Soriano PharmD Unavailable [phone] Reason for Visit * Reason Onset Date Comments Med Refill PCP no longer prescribing Percocet 11/04/2022 Reminded pt of our previous conversation 10/28/22 about being weaned off Percocet. See note Encounter Details Date Type Department Care Team (Late st Contact Info) Description 11/04/2022 Telephone [facility] MED[facility]INE [address] [place] [address] Name, MD Paxton [address] [place], [place] [phone] Med Refill; PCP no longer prescribing Percocet [...] 11/04/2022 8:35 AM EST TC via PI# [id number], pt called asking for refill of Percocet [...] Care Team (Late st Contact Info) Description 08/02/2025 10:00 AM EST Clinical Support [facility] [address] [place] [address] Nadira Singleton, RN documented as of this encounter Visit Diagnoses Diagnosis Chronic low back pain, unspecified back pain laterality, unspecified whether sciatica present documented in this encounter Additional Health Concerns Assessment Noted Time PHQ-9 Depression Total Score: 0 09/09/20 22 10:25 AM EST documented as of this encounter Care Teams Aircraft Cabin Cleaner Relationship Specialty Start Date End Date Name, MD Paxton [address] [place] [address] PCP - General Family Medicine 04/08/16 Kathe Soriano PharmD [address] [place] [address] Pharmacist Internal Medicine 06/15/22 documented as of this encounter
--- OUTSIDE RECORDS SUMMARY | 2025-07-26 11:24 | XMS_ITS | Encounter Summary ---
Author Organization [employer] Address [address] [facility] [address]t h Floor [place] [id number] Care Team Providers Care Demonstrator Knitting Name Role Phone Name, Paxton GANT Primary Care Provider [phone] Kathe Soriano PharmD Unavailable [phone] Encounter Details Date Type Department Care Team (Late st Contact Info) Description 09/22/2022 Orders Only [facility] MEDICINE [address] [place] [address] Kathe Soriano, PharmD [address] [place] [address] Social History Tobacco Use Types Packs/Day Years [...] Department Care Team (Late Contact Info) Description 08/02/2025 10:00 AM EST Clinical Support [facility] MED[facility] [address] [place] [address] Nadira Singleton, RN documented as of this encounter Visit Diagnoses Not on filedocumented in this encounter Additional Health Concerns Assessment Noted Time PHQ-9 Depression Total Score: 0 09/09/20 10:25 AM EST documented as of this encounter Care Teams Demonstrator Knitting Relationship Specialty Start Date End Date Name, MD Paxton [address] [place] [address] PCP - General Family Medicine 04/08/16 Kathe Soriano PharmD [address] [place] [address] Pharmacist Internal Medicine 06/15/22 documented as of this encounter
--- OUTSIDE RECORDS SUMMARY | 2025-07-26 11:24 | XMS_ITS | Encounter Summary ---
Author Organization [employer] Address [address] [facility] 7t [place] [address] Care Team Providers Care Human Resources Operations Director Name Role Phone NamePaxton MD Primary Care Provider [phone] Kathe Soriano PharmD Unavailable [phone] Reason for Visit * Reason Comments Med Refill Encounter Details Date Type Department Care Team (Late st Contact Info) Description 07/25/2025 Refill [facility] [address] [place], [place] [phone] Name, MD Paxton [address] [place], [place] [phone] Type II diabetes mellitus with complication (HCC) Social History Tobacco Use Types Packs/Day Years Used Date Smoking Tobacco: Former Passive Smoke Exposure: Past Smokeless Tobacco: Former Alcohol Use Standard Drinks/Week Comments Never 0 [...] housing situation today? I have spencer castillo 02/22/[address] you li ve. Do you have problems with any of the following? None of the above 02/22/2025 Food Insecurity Answer Date Recorded Within the past 12 months, y ou worried that your food would run out before you got money to buy more: Often true 02/22/2025 Within the past 12 months,th e food you bought just didn't last and you didn't have enough money to get more: Often true Transportation Answer Date Recorded In the past 12 months, has l ack of transportation kept you from medical appts, meetings, work or from getting things needed for daily living? Yes, it has kept me from medical appointments or getting medications. 02/22/2025 Utilities Answer Date Recorded In the past 12 months, has t he electric, gas, oil or water company threatened to shut off services in your home? Yes 02/22/2025 Depression Answer Date Recorded Patient Health Questionnaire-2 Score 4 02/22/2025 Internet Access Answer Date Recorded Internet Access Q1 Yes 02/22/2025 Internet Access Q2 Not on file 02/22/2025 Sex and Gender Information Value Date Recorded [...] Description 08/02/2025 10:00 AM EST Clinical Support [facility] [address] [place] [id number] Nadira Singleton, RN documented as of this encounter Goals Goal Patient Goal Type Associated Problems Recent Progress Patient-Stated? Author Blood Pressure < 140/90 Blood Pressure 152/78(2024 11:19 AM EDT) No Puia, Kathe, PharmD Hemoglobin A1c < 7 Result Component 5.1( 11:20 AM EDT) No Puia, Kathe, PharmD documented as of this encounter Visit Diagnoses Diagnosis Type II diabetes mellitus with complication (HCC) Type II or unspecified type diabetes mellitus with unspecified complication, not stated as uncontrolled documented in this encounter Additional Health Concerns Assessment Noted Time PHQ-9 Depression Total Score: 0 12/07/19 24 10:36 AM EDT documented as of this encounter Care Teams Human Resources Operations Director Relationship Specialty Start Date End Date Name, MD Paxton [address] [place] [address] PCP - General Family Medicine 04/08/16 Kathe Soriano PharmD [address] [place] [address] Pharmacist Internal Medicine 06/15/22 documented as of this encounter
--- OUTSIDE RECORDS SUMMARY | 2025-07-26 11:24 | XMS_ITS | Encounter Summary ---
Author Organization [employer] Address [address] [facility] 7t [place] [address] Care Team Providers Care Professor Of Physical Education Name Role Phone Name, Paxton GANT Primary Care Provider [phone] Kathe Soriano PharmD Unavailable [phone] Reason for Visit * Reason Comments Med Refill Encounter Details Date Type Department Care Team ([facility] [place] [facility] st Contact Info) Description 03/20/2025 Refill [facility]S [address] [place], [place] [phone] Name, MD Paxton [address] [place] [address] Neuropathic pain, leg, bilateral Social History Tobacco [...] Description 08/02/2025 10:00 AM EST Clinical Support [facility] MEDICINE [address] [place] [address] Nadira Singleton, RN documented as of this [...] documented as of this encounter Care Teams Professor Of Physical Education Relationship Specialty Start Date End Date Name, MD Paxton [address] [place] [address] PCP - General Family Medicine 04/08/16 Kathe Soriano, RimaD [address] [place] [address] [place] [address] Pharmacist Internal Medicine 06/15/22 documented as of this encounter
--- OUTSIDE RECORDS SUMMARY | 2025-07-26 11:24 | XMS_ITS | Encounter Summary ---
Author Organization [employer] Address 75 [facility] 7t [place] [address] Care Team Providers Care Explosives Worker Name Role Phone Name, Paxton GANT Primary Care Provider [phone] Kathe Soriano PharmD Unavailable [phone] Encounter Details Date Type Department Care Team (Latest Contact Info) Description 12/24/2020 Abstract [facility], Provider, DDS Social History Tobacco [...] Description 08/02/2025 10:00 AM EST Clinical Support [facility] [address] [place] [address] Nadira Singleton, BALJINDER documented as of this encounter Visit Diagnoses Not on filedocumented in this encounter Care Teams Explosives Worker Relationship Specialty Start Date End Date Name, MD Paxton [address] [place] [address] PCP - General Family Medicine 04/08/16 Kathe Soriano, PharmD [address] [place] [address] Pharmacist Internal Medicine 06/15/22 documented as of this encounter
--- OUTSIDE RECORDS SUMMARY | 2025-07-26 11:24 | XMS_ITS | Encounter Summary ---
Author Organization [employer] Address [address] [facility] 7t [place] [address] Care Team Providers Care Dental Service Technician Name Role Phone NamePaxton MD Primary Care Provider [phone] Kateh Soriano PharmD Unavailable [phone] Reason for Visit * Reason Comments Med Refill Encounter Details Date Type Department Care Team (Late st Contact Info) Description 06/07/2024 Refill [facility] MEDICINE [address] [place], [place] [phone] Name, MD Paxton [address] [place] [address] Neuropathic pain, leg, bilateral Social History Tobacco [...] the past 12 months, has t he [employer], gas, oil or water company threatened to [...] Description 08/02/2025 10:00 AM EST Clinical Support [facility] [address] [place] [address] Nadira Singleton RN documented as of this encounter Goals [...] documented as of this encounter Care Teams Dental Service Technician Relationship Specialty Start Date End Date Name, MD Paxton [address] [place] [address] PCP - General Family Medicine 04/08/16 Puia, Kathe, PharmD [address] [place] [address] Pharmacist Internal Medicine 06/15/22 documented as of this encounter
--- OUTSIDE RECORDS SUMMARY | 2025-07-26 11:24 | XMS_ITS | Patient Health Record ---
Author Organization [facility] Address [address] [place] [address] Care Team Providers Care Flue Cleaner Name Role Phone NO, PCP Primary Care Provider Carlos Subramanian [phone] Reason For Referral No Information Plan Of Treatment No Information Insurance Providers Payer Name Payer Address Payer Phone Subscriber Number Group Number Insured Name Patient Relationship to Insured Coverage Start Date Coverage End Date [place] [address] [place] [address] [phone] [id number] Calvin Clark Self - patient is the insured 2
--- OUTSIDE RECORDS SUMMARY | 2025-07-26 11:24 | XMS_ITS | Encounter Summary ---
Author Organization [employer] Address [address] [facility] 7t [place] [address] Care Team Providers Care Typesetting Machine Operator/Tender Name Role Phone NamePaxton MD Primary Care Provider [phone] Kathe Soriano PharmD Unavailable [phone] Reason for Visit * Reason Comments Med Refill Encounter Details Date Type Department Care Team (Late st Contact Info) Description 05/09/2025 Refill [facility] [address] [place], [place] [phone] Name, MD Paxton [address] [place] [address] Peroneal neuropathy, unspecified laterality Social History Tobacco [...] Description 08/02/2025 10:00 AM EST Clinical Support [facility] MED[facility]INE [address] [place] [address] Nadira Singleton, BALJINDER documented as of this encounter Goals Goal [...] documented as of this encounter Care Teams Typesetting Machine Operator/Tender Relationship Specialty Start Date End Date Name, MD Paxton [address] [place] [address] PCP - General Family Medicine 04/08/16 Kathe Soriano, RimaD [address] [place] [address] Pharmacist Internal Medicine 06/15/22 documented as of this encounter
--- OUTSIDE RECORDS SUMMARY | 2025-07-26 11:24 | XMS_ITS | Clinical Summary ---
Author Organization [employer] Address [address] [place] [address] Care Team Providers Care Java Architect Name Role Phone Adan Welch MD Primary [...] Health Maintenance Due Date Last Done Comments Colorectal Cancer Screening: Colonoscopy 1967 Diabetes: Annual GFR (Glomerular Filtration Rate) 1967 Diabetes: Annual Foot Exam 1977 Diabetes: Annual Retina Eye Exam 1977 Hepatitis B Vaccines (1 of 3 - 19+ 3-dose series) 1986 Pneumococcal Vaccine: 50+ Years (1 of 2 - PCV) 1986 RSV Immunization Adult Patients (1 - Risk 50-74 years 1-dose series) 2017 Zoster Vaccines (1 of 2) 2017 DTaP,Tdap,and Td Vaccines (2 - Td or Tdap) 10/28/2020 10/28/2010 Cholesterol Screening (Lipid Panel) 08/26/2022 HIV Screening 08/26/2022 Hepatitis C Screening 08/26/2022 Social Influencers of Health Screening 08/26/2022 Diabetes: Annual Urine Albumin-Creatinine Ratio (uACR) 09/09/2022 Diabetes: Blood Sugar Control Test (HGBA1C) 09/09/2022 Hypertension/CHF/CAD Annual BMP Blood Test 09/09/2022 Depression Screening 09/27/2024 COVID-19 Vaccine ( season) 2025 Influenza Vaccine (#1) 2025 5, 07/02/2014, 07/04/2013, Additional history exists HIB Vaccines [...] age to complete this topic Care Teams Java Architect Relationship Specialty Start Date End Date Adan Welch MD [address] [place] [address] PCP - General Internal Medicine 12/09/15
--- OUTSIDE RECORDS SUMMARY | 2025-07-26 11:24 | XMS_ITS | Clinical Summary ---
Author Organization [employer] Address 75 [facility] 7t [place] [address] Care Team Providers Care Gas Collection System Operator Name Role Phone Name, Paxton GANT Primary Care Provider [phone] Kathe Soriano PharmD Unavailable [phone] Allergies No known active allergies Medications [...] TIMES DAILY 270 mL 3 024 Active Pulmicort Flexhaler 180 MCG/ACT inhaler INHALE 2 PUFFS BY MOUTH TWICE DAILY IN THE MORNING AND AT BEDTIME, RINSE MOUTH AFTER USING. DO NOT SWALLOW 1 each 1 024 Active naloxone (Narcan) 4 mg/0.1 mL [...] stripIndications :Type II diabetes mellitus with complication (HCC) Use to test blood sugar once daily as directed 100 strip 5 024 Active TRUEplus Lancets 33G miscIndications: Type II diabetes mellitus with complication (HCC) USE DIRECTED TO TEST BLOOD SUGAR ONCE DAILY 100 each 5 024 Active atenolol (Tenormin) 100 MG tablet Take 1 tablet (100 mg) by mouth Once per day. 30 tablet 11 025 2025 Active Trulicity 0.75 MG/0.5ML solution auto-injector INJECT ONE PEN (=0.75MG) SUBCUTANEOUSLY ONCE A WEEK DIRECTED 2 mL 5 Active ibuprofen 600 MG tablet Take 1 tablet (600 mg) by mouth 3 times daily. 90 tablet Active methIMAzole (Tapazole) 10 MG tablet Take 3 tablets (30 mg) by mouth Once per day. Active metFORMIN (Glucophage) 850 MG tabletIndication s:Type II diabetes mellitus with complication (HCC) Take 1 tablet (850 mg) by mouth with breakfast and with evening meal. TAKE 1 TABLET BY MOUTH TWICE DAILY IN THE MORNING AND IN THE EVENING WITH MEALSTAKE 1 TABLET BY MOUTH TWICE DAILY IN THE MORNING AND IN THE EVENING WITH MEALS 60 tablet 11 025 2025 Active montelukast (Singulair) 10 MG tabletIndication s:Allergic rhinitis, unspecified seasonality, unspecified trigger TAKE 1 TABLET BY MOUTH EVERY EVENING 90 tablet 1 025 Active furosemide (Lasix) 20 MG tabletIndication s:Allergic rhinitis, unspecified seasonality, unspecified trigger TAKE 1 TABLET BY MOUTH EVERY DAY 90 tablet 1 025 Active cyanocobalamin (Vitamin B-12) 1000 MCG tablet TAKE 1 TABLET BY MOUTH EVERY DAY IN THE MORNING 90 tablet 3 025 Active sildenafil (Viagra) 50 MG tabletIndication s:Peroneal neuropathy, unspecified laterality TAKE 1 TABLET 1 HOUR BEFORE SEXUAL RELATIONS ONCE DAILY NEEDED. 12 tablet 2 025 Active lisinopril 40 MG tabletIndication s:Primary hypertension,Typ e II diabetes mellitus with complication (HCC) TAKE 1 TABLET BY MOUTH ONCE DAILY 90 tablet 3 025 Active pravastatin (Pravachol) 40 MG tablet TAKE 1 TABLET BY MOUTH EVERY DAY 30 tablet 11 025 Active oxyCODONE-acetam inophen (Percocet) 5-325 MG tabletIndication s:Chronic low back pain, unspecified back pain laterality, unspecified whether sciatica present,Fall, sequela Take 1 tablet by mouth every 8 (eight) hours if needed for severe pain for up to 28 days. 84 tablet 025 2024 Active Aspirin Low Dose 81 MG EC tabletIndication s:Type II diabetes mellitus with complication (HCC) TAKE 1 TABLET BY MOUTH EVERY DAY 90 tablet 3 025 Active aspirin 81 MG EC tabletIndication s:Type II diabetes mellitus with complication (HCC) Take 1 tablet (81 mg) by mouth Once daily. 90 tablet 3 024 2024 Discontinued oxyCODONE-acetam inophen (Percocet) 5-325 MG tabletIndication s:Neuropathic pain, leg, bilateral Take 1 tablet by mouth every 12 (twelve) hours if needed for severe pain for up to 28 days. Do not start before June 22, 2025. 56 tablet 025 2024 Discontinued(I neffective) Active Problems Problem Noted Date Diagnosed Date Carpal tunnel syndrome 02/21/2025 Dental abscess 02/09/2025 Class 1 obesity 02/05/2025 Graves' disease 01/09/2025 Allergy to pollen 01/04/2025 Long-term current use of opiate analgesic 2024 Overview (10/31/2024): Medication: Percocet 5-325 mg Q12H Indication: lumbar disc bulge, bilateral neuropathic leg pain Last ASSISTANT TO THE DIRECTOR Agreement: Hyperthyroidism 08/02/2024 Fracture of tooth 04/01/2023 Facial pain 04/01/2023 Sciatica 04/01/2023 Pain, dental 04/01/2023 Hypertension 11/27/2022 Assessment & Plan (12/12/2024 [...] modalities -UTOX as expected, forgot pills. See hospice team lead Recurrent falls 01/27/2017 Urinary incontinence 01/27/2017 ED [...] 02/23/2024 Lumbar paraspinal muscle spasm 04/01/2023 02/23/2024 Cramps, muscle, general 12/21/201701/26 Pneumonia due to infectious organism 05/20/2017 01/04/2025 Paraparesis ([facility]/HCC) 01/27/20172024 Encounters Date Type Department Care Team Description 07/25/2025 Refill [facility] MEDICINE [address] [place] [address] Name, MD Paxton Type II diabetes mellitus with complication ([facility]) 07/16/2025 Telephone [facility] MEDICINE [address] [place] [address] Paxton Goldstein MD Pt needs to reschedule ASSISTANT TO THE DIRECTOR RV 07/17/25 07/12/2025 Telephone [facility] [place] [address] Paxton Goldstein MD Durable Medical Equipment 07/10/2025 11:00 AM EDT Office Visit [facility] [place] [address] Paxton Goldstein MD Graves' disease (Primary Dx); Chronic low back pain, unspecified back pain laterality, unspecified whether sciatica present; Acute right hip pain; Fall, sequela; Type II diabetes mellitus with complication (HCC); Diabetic polyneuropathy associated with type 2 diabetes mellitus (HCC); Encounter for immunization 07/10/2025 Travel 06/21/2025 9:30 AM EDT Clinical Support [facility] [place] [address] Nadira Singleton RN Long-term current use of opiate analgesic (Primary Dx) 06/21/2025 Refill [facility] MEDICINE [address] [place] [address] Nadira Singleton RN Neuropathic pain, leg, bilateral 06/21/2025 Travel 06/20/2025 Refill [facility] MEDICINE [address] [place] [address] Paxton Goldstein MD Neuropathic pain, leg, bilateral 06/10/2025 Refill [facility] MEDICINE [address] [place] [address] Paxton Goldstein MD Primary hypertension; Type II diabetes mellitus with complication (CMS/HCC) 06/07/2025 Telephone [facility] MEDICINE [address] [place] [address] Paxton Goldstein MD PT1 06/06/2025 Refill [facility] MEDICINE [address] [place] [address] Paxton Goldstein MD Neuropathic pain, leg, bilateral 06/05/2025 Refill [facility] MED & PEDS [address] [place] [address] Paxton Goldstein MD Neuropathic pain, leg, bilateral 05/29/2025 Refill [facility] MED & PEDS [address] [place] [address] NamePaxton MD Neuropathic pain, leg, bilateral 05/23/2025 Refill [facility] [address] [place] [address] NamePaxton MD Neuropathic pain, leg, bilateral 05/18/2025 Refill [facility] MEDICINE [address] [place] [address] NamePaxton MD Peroneal neuropathy, unspecified laterality 05/15/2025 Refill [facility] [address] [place], [place] [phone] Comfort Carrillo NP Neuropathic pain, leg, bilateral 05/14/2025 Refill [facility] MEDICINE [address] [place] [address] NamePaxton MD 05/09/2025 Refill [facility] MEDICINE [address] [place] [address] NamePaxton MD Peroneal neuropathy, unspecified laterality 05/02/2025 Telephone [facility] MEDICINE [address] [place] [address] Yeimy Lentz DC may recalls 05/01/2025 Telephone [facility] MEDICINE [address] [place] [address] Nadira Singleton, BALJINDER NCNS ASSISTANT TO THE DIRECTOR RV appt today from Last 3 Months Immunizations Immunization Administration Dates Next Due Hep B, adult 08/31/2023,08/03/2023 Influenza injectable quadriv alent IIV4 with preservative 06/23/2018,07/06/2017,06/19/2016 Influenza injectable quadriv alent preservative free 08/03/2023,06/08/2022,09/17/2021,11/01,06/21/2019,09/06/2015 Influenza, High Dose Seasona l, Preservative Free 07/12/2024 Influenza, IIV3, injectable 09/06/2015,1 ,07/04/2013,07/22,12/10/2009 Influenza, seasonal, injecta ble, preservative free 07/10/2025 Moderna Covid-19 Vaccine 12+ 02/17/2022, 09/17/2021,03/06/2021,02/06 Pfizer [...] Passive Smoke Exposure: Past Smokeless Tobacco: Former Tobacco Cessation:Counseling Given: Not Answered Alcohol Use [...] Sign Reading Time Taken Comments Blood Pressure 152/78 07/10/2025 11:19 AM EDT Pulse 114 07/10/2025 11:19 AM EDT Temperature 37.1 C (98.8 F) 07/10/2025 11:19 AM EDT Respiratory Rate 14 07/10/2025 11:1 9 AM EDT Oxygen Saturation 98% 07/10/2025 11: 19 AM EDT Inhaled Oxygen Concentration - - Weight 75.7 kg (166 lb 12.8 oz) 025 11:19 AM EDT Height 172.7 cm (5' 8 ) 07/10/2025 11:1 9 AM EDT Body Mass Index 25.36 07/10/2025 11:19 AM EDT Plan of Treatment Upcoming Encounters Date Type Department Care Team (Late st Contact Info) Description 08/02/2025 10:00 AM EST Clinical Support [facility] MEDICINE [address] [place] [phone] Nadira Singleton, RN Health Maintenance Due Date Last Done Comments CT Colonography 1967 Colonoscopy 1967 Colorectal Cancer Screening 1967 FIT DNA/Cologuard 1967 FIT 1967 FOBT 1967 HIV Screening 1967 Sigmoidoscopy 1967 Alcohol/Substance Use Screening 1979 Hepatitis C Screening 1985 Dental Prophylaxis 06/27/2021 12/24/2020, 2014 Dental Oral Exam 09/02/2023 03/02/2023, , 2014 Hepatitis B Vaccines (3 of 3 - 19+ 3-dose series) 02/01/2024 08/31/2023, 08/03/2023 Eye Exam 02/02/2024 02/01/2023, 04/2023, 02/01/2023, Additional history exists Dental X-Ray: Bitewings 03/03/2024 03/02/20 23, 12/24/2020, 12/05/2020, Additional history exists Diabetes: Foot Exam 08/03/2024 08/03/2023, 08/03/2023, 08/03/2023, Additional history exists Diabetes: Urine Protein Screening 12/07/2024 12/08/2023, 12/21/2022, 02/11/2022, Additional history exists Lipid Panel 12/07/2024 12/08/2023, 07/30, 02/11/2022, Additional history exists Diabetes: Hemoglobin A1C 01/08/2026 025, 01/04/2025, 06/06/2024, Additional history exists Depression Screening 02/22/2026 02/22/2025, 12/07/19 24 Disability Screening 02/22/2026 02/22/2025 SDOH Screening 02/22/2026 02/22/2025 Tobacco Screening 07/10/2026 07/10/2025 Dental X-Ray: Full Mouth 02/11/2028 025, 12/24/2020, 2014 DTaP/Tdap/Td Vaccines (4 - Td or Tdap) 04/14/2029 04/14/2019, 10/28/2010, 12/10/2009 RSV Patients and Patients Aged 60 years or older (1 - 1-dose 75+ series) 2042 Pneumococcal Vaccine: 50+ Years Completed 06/15/2022, 06/23/2018 Zoster Vaccines Completed 08/24/2022, 06/15/2022 COVID-19 Vaccine Completed 07/12/2024, 03/2023, 02/17/2022, Additional history exists Influenza Vaccine Completed 07/10/2025, , 08/03/2023, Additional history exists HIB Vaccines Aged Out [...] Blood Pressure 152/78(2024 11:19 AM EDT) No Kathe Soriano, PharmD Hemoglobin A1c < 7 Result Component 5.1( 11:20 AM EDT) No Kathe Soriano, PharmD Procedures Procedure Name Priority Date/Time Associated Diagnosis Comments POCT GLYCATED HEMOGLOBIN, TOTAL Routine 07/10/2025 11:20 AM EDT Type II diabetes mellitus with complication (HCC) POCT GLUCOSE Routine 07/10/2025 11:19 AM EDT Type II diabetes mellitus with complication (HCC) POCT CAYLA-14 URINE DRUG SCREEN Routine 06/21/2025 9:38 AM EDT Long-term current use of opiate analgesic PANORAMIC RADIOGRAPHIC IMAGE Routine 02/09/2025 1:15 PM EDT ALBUMIN, RANDOM URINE W/CREATININE Routine 12/08/2023 8:37 [...] Relevant to Health Maintenance Results * (ABNORMAL) POCT Hgb A1c (07/10/2025 11:20 AM EDT) Hemoglobin A1C 5.1 4.0 - 5.7 % QC Media Lot # [id number] Lot# Expiration Date 41,627 Blood 07/10/2025 11:2 0 AM EDT us Paxton Goldstein MD POINT OF CARE TEST ENTER/EDIT OR DERABLES Final Result * POCT Glucose (07/10/2025 11:19 AM EDT) Glucose Blood, POC 113 60 - 200 mg/dL QC Media Lot # [id number] Lot# Expiration Date 31,126 Blood Capillary blood specimen / Unknown 07/10/2025 11:19 AM EDT us Paxton Goldstein MD POINT OF CARE TEST ENTER/EDIT OR DERABLES Final Result * POCT CAYLA-14 Urine Drug Screen (06/21/2025 9:38 AM EDT) THC Negative Negative Cocaine Screen, Urine Negative Negative Opiate Screen, Urine Negative Negative Methamphetamine Screen Urine Negative Negative Amphetamine Screen, Urine Negative Negative Benzodiazepines Screen, Urine Negative Negative Barbiturate Screen, Urine Negative Negative Methadone Screen, Urine Negative Negative Buprenophine Screen, Urine Negative Negative TCA, Urine Negative Negative MDMA Urine Negative Negative ng/mL Oxycodone Screen, Urine Positive Negative Phencyclidine (PCP), Urine Negative Negative Propoxyphene, Urine Negative Negative Fentanyl, Urine Negative Negative Urine Urine specimen obtained by clean catch procedure / Unknown 06/21/2025 9:38 AM EDT Narrative Nadira Singleton RN - 06/21/2025 9:38 AM EDT UTOX cup Lot#[id number] Exp. 07/03/26 Internal Pass Control us Paxton Goldstein MD POINT OF CARE TEST ENTER/EDIT OR DERABLES Final Result * Albumin, Random Urine W/Creatinine (12/08/2023 8:37 AM EDT) Creatinine, Urine 105.47 mg/dL [facility] Microalbumin Urine 5.0 mg/L [facility] Microalbum Creatinine Ratio Ur 4.7 <30 ug/mg cr [facility] Comment:Albumin/Creatinine R atio Reference Ranges: Normal: < 30 ug/mg creatinine Microalbuminuria: 30 - 300 ug/mg creatinineClinical Albuminuria: > 300 ug/mg creatinine Urine (Urine, Random) 12/08/2023 8:37 AM EDT 12/08/2023 11:26 AM EDT us Paxton Name LAB URINE ORDERABLES Final Resul t [facility] [address] [place] [address] [phone] * (ABNORMAL) Lipid Panel, Standard (12/08/2023 8:37 AM EDT) Triglycerides 103 <150 mg/dL [facility] Comment:Desirable Triglyceri de: less than 150 mg/dLBorderline High Triglyceride 150-199 mg/dLHigh Triglyceride: 200-499 mg/dLVery High Triglyceride: greater than or equal to 5OO mg/dL Cholesterol 141 <200 mg/dL [facility] Comment:Desirable Cholestero l: less than 200 mg/dLBorderline High Cholesterol: 200-239 mg/dLHigh Cholesterol: greater than 239 mg/dL LDL Cholesterol Calculated 83 <100 mg/dL [facility] Comment:Desirable LDL: less than 100 mg/dLNear Optimal/Above Optimal LDL: 110- 129 mg/dLBorderline High LDL: 130-159 mg/dLHigh LDL: 160-189 mg/dLVery High LDL: greater than or equal to 190 mg/dL HDL Cholesterol 38(L) >40 mg/dL [facility] Comment:Desirable HDL: great er than 40 mg/dL Note: This HDL assay may give artificially low results in patients with liver disease. Blood Venous blood specimen / Unknown 12/08/2023 8:37 AM EDT 12/08/2023 11:16 AM EDT us Paxton Goldstein MD LAB BLOOD ORDERABLES Final Resul t [facility] [address] [place] [address] [phone] from Last 3 Months or Most Recently Relevant to Health Maintenance [place] [address] [place] [address] STANDARD MEDICARE DENTAL-[facility] MEDICAID STAND ADULT Care Teams Gas Collection System Operator Relationship Specialty Start Date End Date Name, MD Paxton [address] [place] [phone] PCP - General Family Medicine 04/08/16 Kathe Soriano PharmD [address] [place] [address] Pharmacist Internal Medicine 06/15/22
--- OUTSIDE RECORDS SUMMARY | 2025-07-26 11:24 | XMS_ITS | Encounter Summary ---
Author Organization [employer] Address 75 [facility] 7t [place] [address] Care Team Providers Care Freedom Of Information Officer Name Role Phone Name, Paxton GANT Primary Care Provider [phone] Kathe Soriano PharmD Unavailable [phone] Reason for Visit * Reason Onset Date Comments more swollen and more pain than before Encounter Details Date Type Department Care Team (Late st Contact Info) Description 02/09/2025 Telephone [facility] ADULT DENTAL [address] [place] [address] Najera-DumontBarrieShaylee, DDS [address] [place], [place] [phone] more swollen and more pain than before [...] Description 08/02/2025 10:00 AM EST Clinical Support [facility] MEDICINE [address] [place] [address] [phone] Nadira Singleton, BALJINDER documented as of this [...] documented as of this encounter Care Teams Freedom Of Information Officer Relationship Specialty Start Date End Date Name, MD Paxton [address] [place] [address] PCP - General Family Medicine 04/08/16 Kathe Soriano, PharmD [address] [place] [address] Pharmacist Internal Medicine 06/15/22 documented as of this encounter
--- OUTSIDE RECORDS SUMMARY | 2025-07-26 11:24 | XMS_ITS | Encounter Summary ---
Author Organization [employer] Address 75 [facility] 7t [place] [address] Care Team Providers Care Mri Assistant Name Role Phone Name, Paxton GANT Primary Care Provider [phone] Kathe Soriano PharmD Unavailable [phone] Reason for Visit * Reason Comments Med Refill Encounter Details Date Type Department Care Team ([facility] st Contact Info) Description 02/29/2024 Refill [facility] MED & PEDS [address] [place], [place] [phone] Name, MD Paxton [address] [place] [address] Peroneal neuropathy, unspecified laterality Social History Tobacco [...] Description 08/02/2025 10:00 AM EST Clinical Support [facility] MEDICINE [address] [place] [address] Nadira Singleton, BALJINDER documented as of this [...] documented as of this encounter Care Teams Mri Assistant Relationship Specialty Start Date End Date Name, MD Paxton [address] [place] [address] PCP - General Family Medicine 04/08/16 Puia, Kathe, PharmD [address] [place] [address] Pharmacist Internal Medicine 06/15/22 documented as of this encounter
--- OUTSIDE RECORDS SUMMARY | 2025-07-26 11:24 | XMS_ITS | Encounter Summary ---
Author Organization [employer] Address 75 [facility] 7t [place] [address] Care Team Providers Care Product Picker Name Role Phone Name, Paxton GANT Primary Care Provider [phone] Kathe Soriano PharmD Unavailable [phone] Encounter Details Date Type Department Care Team (Late st Contact Info) Description 11/26/2022 Orders Only [facility] MEDICINE [address] [place] [phone] Name, MD Paxton [address] [place] [phone] Social History Tobacco Use Types Packs/Day Years [...] Description 08/02/2025 10:00 AM EST Clinical Support [facility] MEDICINE [address] [place] [address] [phone] Nadira Singleton, RN documented as of this encounter Visit Diagnoses Not on filedocumented in this encounter Additional Health Concerns Assessment Noted Time PHQ-9 Depression Total Score: 0 09/09/20 22 10:25 AM EST documented as of this encounter Care Teams Product Picker Relationship Specialty Start Date End Date Name, MD Paxton [address] [place] [address] PCP - General Family Medicine 04/08/16 Kathe Soriano PharmD [address] [place] [address] Pharmacist Internal Medicine 06/15/22 documented as of this encounter
--- OUTSIDE RECORDS SUMMARY | 2025-07-26 11:24 | XMS_ITS | Encounter Summary ---
Author Organization [employer] Address 75 [facility] 7t h Floor [place] [id number] Care Team Providers Care Summer Law Associate Name Role Phone Name, Paxton GANT Primary Care Provider [phone] Kathe Soriano PharmD Unavailable [phone] Encounter Details Date Type Department Care Team ([facility] Contact Info) Description 11/27/2022 Orders Only [facility] MEDICINE [address] [place] [phone] Kristin Collazo FNP [address] [place] [address] Social History Tobacco Use Types Packs/Day Years [...] Upcoming Encounters Date Type Department Care Team ([facility] Contact Info) Description 08/02/2025 10:00 AM EST Clinical Support [facility] MEDICINE [address] [place] [phone] Nadira Singleton, RN documented as of this encounter Visit Diagnoses Not on filedocumented in this encounter Additional Health Concerns Assessment Noted Time PHQ-9 Depression Total Score: 0 09/09/20 22 10:25 AM EST documented as of this encounter Care Teams Summer Law Associate Relationship Specialty Start Date End Date Name, MD Paxton [address] [place] [address] PCP - General Family Medicine 04/08/16 Kathe Soriano PharmD [address] [place] [address] Pharmacist Internal Medicine 06/15/22 documented as of this encounter
[2025-07-26 11:31] LABS: MANUAL DIFF FLAG NO
[2025-07-26 11:45] LABS: Hematocrit 43.6 % (42.0-52.0); Hemoglobin 13.9 g/dl (14.0-18.0); Imm Gran Abs Auto 0.01 X10*3/uL (0.00-0.03); Imm Gran Pct Auto 0.2 % (0.0-0.4); Lymphocytes Absolute Auto 2.0 X10*3/uL (1.2-4.9); Mean Corpuscular HGB Conc 31.9 g/dl (31.0-36.0); Mean Corpuscular Hemoglobin 29.0 pg (27.0-33.0); Mean Corpuscular Volume 91.0 fL (80.0-98.0); NRBC Abs Auto 0.000 X10*3/uL (0.0-0.012); NRBC Pct Auto 0.0 /100WBC (0.0-0.2); Platelet Count 192 X10*3/uL (160-400); Red Blood Count 4.79 X10*6/uL (4.60-5.80); White Blood Count 4.9 X10*3/uL (4.8-10.8)
[2025-07-26 12:15] LABS: Alanine Aminotransferase 31 U/L (0-40); Albumin Level 4.4 g/dL (3.5-5.0); Alkaline Phosphatase 164 U/L (39-117); Anion Gap 10 (12-20); Aspartate Amino Transferase 29 U/L (5-37); Blood Urea Nitrogen 11 mg/dL (9-16); Calcium 9.3 mg/dL (8.4-10.2); Carbon Dioxide 28 mmol/L (22-29); Chloride 108 mmol/L (96-108); Estimated Glomerular Filt Rate > 60; Potassium 3.6 mmol/L (3.3-5.1); Sodium 142 mmol/L (135-145); Total Protein 7.2 g/dL (6.5-8.0)
[2025-07-26 12:58] LABS: Free T4 (Free Thyroxine) 2.27 ng/dL (0.71-1.85)
== END 2025-07-26 09:45 | disposition home or self-care (01) ==
LOC: HO.HHCL 09:44
PROVIDERS: PCP Internal Medicine Geriatric Medicine; Visit Provider Internal Medicine Geriatric Medicine
DX: E05.00 Thyrotoxicosis with diffuse goiter without thyrotoxic crisis or storm (principal); E11.8 Type 2 diabetes mellitus with unspecified complications
CPT/HCPCS: 36415; 80053; 82043; 82570; 84439; 84443; 85025

== ENCOUNTER 2025-09-13 16:27 | Outpatient (REF) | payer MEDICARE, MEDICAID, SELFPAY ==
--- NOTE | ~2025-09-13 | US_ITS ---
EXAMINATION: US THYROID CLINICAL INFORMATION: Hyperthyroidism. COMPARISON: None available. TECHNIQUE: Linear transducer grayscale and color Doppler examination with attention to the region of the thyroid. FINDINGS: SIZE: Measurements of the thyroid lobes and nodules are given in sagittal, anteroposterior and transverse dimensions respectively. Right Thyroid Lobe: 5.0 x 2.3 x 2.4 cm, volume 14.4 mL. (Enlarged) Parenchyma: The gland echotexture is heterogeneous. Thyroid vascularity is increased. Left Thyroid Lobe: 4.7 x 2.5 x 2.1 cm, volume 13.0 mL. (Enlarged) Parenchyma: The gland echotexture is heterogeneous. Thyroid vascularity is increased. Isthmus: 0.4 cm in maximum AP dimension. There are no discrete thyroid nodules present. NODES: No lymphadenopathy is seen in the tissue surrounding the thyroid gland. US/US thyroid IMPRESSION: 1. Mildly enlarged, heterogeneous thyroid gland in keeping with thyroiditis. 2. There are no discrete nodules present. Electronically signed by: Low Antony MD 09/13/2025 04:50 PM [facility]
--- OUTSIDE RECORDS SUMMARY | 2025-09-13 19:43 | XMS_ITS | Encounter Summary ---
Author Organization [employer] Address 75 [facility] [address]t h Floor [place] [id number] Care Team Providers Care Roping Machine Tender Name Role Phone Name, Paxton GANT Primary Care Provider [phone] Kathe Soriano PharmD Unavailable [phone] Encounter Details Date Type Department Care Team ([facility] Contact Info) Description 11/27/[address] [facility] MEDICINE [address] [place] [phone] Kristin Collazo FNP [address] [place] [address] Social History Tobacco Use Types Packs/Day Years [...] Upcoming Encounters Date Type Department Care Team ([facility] Contact Info) Description 10/02/2025 9:00 AM EST Clinical Support [facility] MEDICINE [address] [place] [phone] Nadira Singleton, RN documented as of this encounter Visit Diagnoses Not on filedocumented in this encounter Additional Health Concerns Assessment Noted Time PHQ-9 Depression Total Score: 0 09/09/20 22 10:25 AM EST documented as of this encounter Care Teams Roping Machine Tender Relationship Specialty Start Date End Date Name, MD Paxton [address] [place] [address] PCP - General Family Medicine 04/08/16 Kathe Soriano PharmD [address] [place] [address] Pharmacist Internal Medicine 06/15/22 documented as of this encounter
--- OUTSIDE RECORDS SUMMARY | 2025-09-13 19:43 | XMS_ITS | Patient Health Record ---
Author Organization [facility] Address [address] [place] [address] Care Team Providers Care Airline Managerial Supervisor Name Role Phone NO, PCP Primary Care Provider Carlos Subramanian [phone] Reason For Referral No Information Plan Of Treatment No Information Insurance Providers Payer Name Payer Address Payer Phone Subscriber Number Group Number Insured Name Patient Relationship to Insured Coverage Start Date Coverage End Date [place] [address] [place] [address] [phone] [id number] Calvin Clark Self - patient is the insured 2
--- OUTSIDE RECORDS SUMMARY | 2025-09-13 19:43 | XMS_ITS | Encounter Summary ---
Author Organization [employer] Address 75 [facility] 7t [place] [address] Care Team Providers Care Applications Packager Name Role Phone Name, Paxton GANT Primary Care Provider [phone] Kathe Soriano PharmD Unavailable [phone] Encounter Details Date Type Department Care Team (Late st Contact Info) Description 11/26/2022 Orders Only [facility] MEDICINE [address] [place] [phone] Name, MD Paxton [address] [place] [phone] Social History Tobacco Use Types Packs/Day Years [...] Care Team (Late st Contact Info) Description 10/02/2025 9:00 AM EST Clinical Support [facility] MEDICINE [address] [place] [address] [phone] Nadira Singleton, RN documented as of this encounter Visit Diagnoses Not on filedocumented in this encounter Additional Health Concerns Assessment Noted Time PHQ-9 Depression Total Score: 0 09/09/20 22 10:25 AM EST documented as of this encounter Care Teams Applications Packager Relationship Specialty Start Date End Date Name, MD Paxton [address] [place] [address] PCP - General Family Medicine 04/08/16 Kathe Soriano PharmD [address] [place] [address] Pharmacist Internal Medicine 06/15/22 documented as of this encounter
--- OUTSIDE RECORDS SUMMARY | 2025-09-13 19:43 | XMS_ITS | Encounter Summary ---
Author Organization [employer] Address [address] [facility] [address] [place] [address] Care Team Providers Care Scrap Separator Name Role Phone Paxton Goldstein MD Primary Care Provider [phone] Kathe Soriano PharmD Unavailable [phone] Reason for Visit * Reason Comments Med Refill Encounter Details Date Type Department Care Team (Late st Contact Info) Description 09/07/2025 Refill [facility] MED[facility]INE [address] [place], [place] [id number] Name, MD Paxton [address] [place] [address] Chronic low back pain, unspecified back pain laterality, unspecified whether sciatica present; Fall, sequela Social History Tobacco Use Types Packs/Day Years [...] Telephone Encounter - Nadira Singleton RN - 09/07/2025 3:32 PM EST Per Mounika, Percocet last picked up 08/16/25, for a 28 day supply. Refill due 09/13/25. Will forward to PCP on 09/11/25. documented in this encounter Plan of Treatment Upcoming Encounters Date Type Department Care Team (Late st Contact Info) Description 10/02/2025 9:00 AM EST Clinical Support [facility] MEDICINE [address] [place] [id number] Nadira Singleton, RN documented as of this encounter Goals Goal Patient Goal Type Associated Problems Recent Progress Patient-Stated? Author Blood Pressure < 140/90 Blood Pressure 152/78(2024 11:19 AM EDT) No Kathe Soriano, PharmD Hemoglobin A1c < 7 Result Component 5.1( 5 11:20 AM EDT) No Kathe Soriano PharmD documented as of this encounter Visit Diagnoses Diagnosis Chronic low back pain, unspecified back pain laterality, unspecified whether sciatica present Fall, sequela documented in this encounter Additional Health Concerns Assessment Noted Time PHQ-9 Depression Total Score: 0 12/07/19 24 10:36 AM EDT documented as of this encounter Care Teams Scrap Separator Relationship Specialty Start Date End Date Name, MD Paxton [address] [place] [id number] PCP - General Family Medicine 04/08/16 Kathe Soriano PharmD [address] [place] [id number] Pharmacist Internal Medicine 06/15/22 documented as of this encounter
--- OUTSIDE RECORDS SUMMARY | 2025-09-13 19:43 | XMS_ITS | Encounter Summary ---
Author Organization [employer] Address [address] [facility] [address] [place] [address] Care Team Providers Care Immigration Paralegal Name Role Phone Paxton Goldstein MD Primary Care Provider [phone] Kathe Soriano PharmD Unavailable [phone] Reason for Visit * Reason Comments Med Refill Encounter Details Date Type Department Care Team (Late st Contact Info) Description 09/06/2025 Refill [facility] MEDICINE [address] [place], [place] [phone] Name, MD Paxton [address] [place] [address] Chronic low back pain, unspecified back pain [...] Description 10/02/2025 9:00 AM EST Clinical Support [address] [address] Nadira Singleton, RN documented as of this [...] documented as of this encounter Care Teams Immigration Paralegal Relationship Specialty Start Date End Date Name, MD Paxton [address] [place] [address] PCP - General Family Medicine 04/08/16 Kathe Soriano PharmD [address] [place] [address] Pharmacist Internal Medicine 06/15/22 documented as of this encounter
--- OUTSIDE RECORDS SUMMARY | 2025-09-13 19:43 | XMS_ITS | Clinical Summary ---
Author Organization [employer] Address [address] [facility] [address] [place] [address] Care Team Providers Care Yacht Rigger Name Role Phone Name, Paxton GANT Primary Care Provider [phone] Kathe Soriano PharmD Unavailable [phone] Allergies No known active allergies Medications [...] mouth Once per day. 30 tablet 11 12/05/20 25 11:25 AM EST 025 2025 Active ibuprofen 600 MG tablet Take 1 tablet (600 mg) by mouth 3 times daily. 90 tablet 025 Active methIMAzole (Tapazole) 10 MG tablet Take [...] THE EVENING WITH MEALS 60 tablet 11 09/13/20 9:25 AM EST 025 2025 Active cyanocobalamin (Vitamin B-12) 1000 MCG tablet TAKE 1 TABLET BY MOUTH EVERY DAY IN THE MORNING 90 tablet 3 025 Active sildenafil (Viagra) 50 MG tabletIndication s:Peroneal neuropathy, unspecified laterality TAKE 1 TABLET 1 HOUR BEFORE SEXUAL RELATIONS ONCE DAILY NEEDED. 12 tablet 2 08/31/20 11:25 AM EST 025 Active lisinopril 40 MG tabletIndication s:Primary hypertension,Typ e II diabetes mellitus with complication (HCC) TAKE 1 TABLET BY MOUTH ONCE DAILY 90 tablet 3 025 Active pravastatin (Pravachol) 40 MG tablet TAKE 1 TABLET BY MOUTH EVERY DAY 30 tablet 11 08/31/20 11:25 AM EST 025 Active Aspirin Low Dose 81 MG EC tabletIndication s:Type II diabetes mellitus with complication (HCC) TAKE 1 TABLET BY MOUTH EVERY DAY 90 tablet 3 08/08/20 9:19 AM EST 025 Active Trulicity 0.75 MG/0.5ML solution auto-injector INJECT ONE PEN (=0.75MG) SUBCUTANEOUSLY ONCE A WEEK DIRECTED 2 mL 5 025 Active oxyCODONE-acetam inophen (Percocet) 5-325 MG tabletIndication s:Chronic low back pain, unspecified back pain laterality, unspecified whether sciatica present,Fall, sequela Take 1 tablet by mouth every 6 (six) hours if needed for severe pain. Do not start before September 13, 2025. 112 tablet 12/18/20 25 9:25 AM EST 025 2025 Active furosemide (Lasix) 20 MG tabletIndication s:Allergic rhinitis, unspecified seasonality, unspecified trigger TAKE 1 TABLET BY MOUTH EVERY DAY 90 tablet 1 025 Active montelukast (Singulair) 10 MG tabletIndication s:Allergic rhinitis, unspecified seasonality, unspecified trigger TAKE 1 TABLET BY MOUTH EVERY EVENING 90 tablet 1 025 Active montelukast (Singulair) 10 MG tabletIndication s:Allergic rhinitis, unspecified seasonality, unspecified trigger TAKE 1 TABLET BY MOUTH EVERY EVENING 90 tablet 1 025 2024 Discontinued furosemide (Lasix) 20 MG tabletIndication s:Allergic rhinitis, unspecified seasonality, unspecified trigger TAKE 1 TABLET BY MOUTH EVERY DAY 90 tablet 1 025 2024 Discontinued oxyCODONE-acetam inophen (Percocet) 5-325 MG tabletIndication s:Chronic low back pain, unspecified back pain laterality, unspecified whether sciatica present,Fall, sequela Take 1 tablet by mouth every 8 (eight) hours if needed for severe pain for up to 7 days. Do not start before August 08, 2025. 21 tablet 08/08/20 25 9:19 AM EST 025 2024 Discontinued(R eorder (will not trigger notification to Pharmacy)) oxyCODONE-acetam inophen (Percocet) 5-325 MG tabletIndication s:Chronic low back pain, unspecified back pain laterality, unspecified whether sciatica present,Fall, sequela Take 1 tablet by mouth every 6 (six) hours if needed for severe pain. 112 tablet 08/16/20 25 11:38 AM EST 025 2024 Discontinued Active Problems Problem Noted Date Diagnosed Date Carpal tunnel syndrome 02/21/2025 Dental abscess 02/09/2025 Class 1 obesity 02/05/2025 Graves' disease 01/09/2025 Allergy to pollen 01/04/2025 Long-term current use of opiate analgesic 2024 Overview (10/31/2024): Medication: Percocet 5-325 mg Q12H Indication: lumbar disc bulge, bilateral neuropathic leg pain Last RESPIRATORY DIRECTOR Agreement: Hyperthyroidism 08/02/2024 Fracture of tooth [...] modalities -UTOX as expected, forgot pills. See winter sports manager Recurrent falls 01/27/2017 Urinary incontinence 01/27/2017 ED [...] due to infectious organism 05/20/2017 01/04/2025 Paraparesis ([facility]) 01/27/20172024 Encounters Date Type Department Care Team Description 09/11/2025 Refill [facility] [address] [facility] [place] [address] Comfort Carrillo NP Allergic rhinitis, unspecified seasonality, unspecified trigger 09/07/2025 Refill [facility] [address] [facility] [place] [address] Paxton Goldstein MD Chronic low back pain, unspecified back pain laterality, unspecified whether sciatica present; Fall, sequela 09/06/2025 Refill [facility] [address] [place] [address] Paxton Goldstein MD Chronic low back pain, unspecified back pain laterality, unspecified whether sciatica present; Fall, sequela 08/16/2025 11:30 AM EST Clinical Support [facility] [address] [facility] [place] [address] Nadira Singleton, BALJINDER Long-term current use of opiate analgesic (Primary Dx) 08/16/2025 Telephone [facility] [address] [facility] [place] [address] Nadira Singleton RN RESPIRATORY DIRECTOR Agreement renewed 08/16/2025 Refill [facility] [address] [facility] [place] [address] Nadira Singleton RN Chronic low back pain, unspecified back pain laterality, unspecified whether sciatica present; Fall, sequela 08/16/2025 Travel 08/14/2025 Telephone [facility] [address] [place] [phone] Nadira Singleton RN [facility] RESPIRATORY DIRECTOR Renewal #3 08/08/2025 Telephone [facility] [address] [place] [phone] Paxton Goldstein MD Appointment Request 08/06/2025 Refill [facility] [address] [place] [address] NamePaxton MD Chronic low back pain, unspecified back pain laterality, unspecified whether sciatica present; Fall, sequela 07/27/2025 Refill [facility] [address] [place] [phone] Paxton Goldstein MD 07/26/2025 Orders Only [facility] [address] [place] [phone] Paxton Goldstein MD 07/25/2025 Refill [facility] [address] [place] [phone] Paxton Goldstein MD Type II diabetes mellitus with complication (HCC) 07/16/2025 Telephone [facility] [address] [place] [phone] Paxton Goldstein MD Pt needs to reschedule RESPIRATORY DIRECTOR RV 07/17/25 07/12/[address] [address] Paxton Goldstein MD Durable Medical Equipment 07/10/2025 11:00 AM EDT Office Visit [address] [address] Paxton Goldstein MD Graves' disease (Primary Dx); Chronic low back pain, unspecified back pain laterality, unspecified whether sciatica present; Acute right hip pain; Fall, sequela; Type II diabetes mellitus with complication (HCC); Diabetic polyneuropathy associated with type 2 diabetes mellitus (HCC); Encounter for immunization 07/10/2025 Travel 06/21/2025 9:30 AM EDT Clinical Support [address] [address] Nadira Singleton RN Long-term current use of opiate analgesic (Primary Dx) 06/21/2025 Refill [facility] [address] [place] [phone] Nadira Singleton, BALJINDER Neuropathic pain, leg, bilateral 06/21/2025 Travel 06/20/2025 Refill [facility] [address] [place] [address] Name, MD Paxton Neuropathic pain, leg, bilateral from Last 3 [...] Description 10/02/2025 9:00 AM EST Clinical Support [facility] [address] [place] [address] Nadira Singleton, RN Health Maintenance Due Date Last Done Comments CT Colonography 1967 Colonoscopy 1967 Colorectal Cancer Screening 1967 FIT DNA/Cologuard 1967 FIT 1967 FOBT 1967 HIV Screening 1967 Sigmoidoscopy 1967 Alcohol/Substance Use Screening 1979 Hepatitis C Screening 1985 RSV Patients and Patients Aged 60 years or older (1 - Risk 50-74 years 1-dose series) 2017 Dental Prophylaxis 06/27/2021 12/24/2020, 2014 Dental Oral Exam 09/02/2023 03/02/2023, , 2014 Hepatitis B Vaccines (3 of 3 - 19+ 3-dose series) 02/01/2024 08/31/2023, 08/03/2023 Eye Exam 02/02/2024 02/01/2023, 04/2023, 02/01/2023, Additional history exists Dental X-Ray: Bitewings 03/03/2024 03/02/20 23, 12/24/2020, 12/05/2020, Additional history exists Diabetes: Foot Exam 08/03/2024 08/03/2023, 08/03/2023, 08/03/2023, Additional history exists Lipid Panel 12/07/2024 12/08/2023, 07/30, 02/11/2022, Additional history exists COVID-19 Vaccine ( season) 2025 07/12/2024, 08/03/2023, 02/17/2022, Additional history exists Diabetes: Hemoglobin A1C 01/08/202607/10/2 025, 01/04/2025, 06/06/2024, Additional history exists Depression Screening 02/22/2026 02/22/2025, 12/07/19 24 Disability Screening 02/22/2026 02/22/2025 SDOH Screening 02/22/2026 02/22/2025 Tobacco Screening 07/10/2026 07/10/2025 Diabetes: Urine Protein Screening 07/26/2026 07/26/2025, 12/08/2023, 12/08/2023, Additional history exists Dental X-Ray: Full Mouth 02/11/2028 025, 12/24/2020, 2014 DTaP/Tdap/Td Vaccines (4 - Td or Tdap) 04/14/2029 04/14/2019, 10/28/2010, 12/10/2009 Pneumococcal Vaccine: 50+ Years Completed 06/15/2022, 06/23/2018 Zoster Vaccines Completed 08/24/2022, 06/15/2022 Influenza Vaccine Completed 07/10/2025, , 08/03/2023, Additional [...] 11:20 AM EDT) No Puia, Kathe, PharmD Procedures Procedure Name Priority Date/Time Associated Diagnosis Comments US THYROID Routine 09/13/2025 4:33 PM EST Graves' disease POCT CAYLA-14 URINE DRUG SCREEN Routine 08/16/2025 11:47 AM EST Long-term current use of opiate analgesic T4, FREE Routine 07/26/2025 9:48 AM EDT ALBUMIN, RANDOM URINE W/CREATININE Routine 07/26/2025 9:48 AM EDT Type II diabetes mellitus with complication (HCC) TSH W/REFLEX TO FT4 Routine 07/26/2025 9 :48 AM EDT Graves' disease COMPREHENSIVE METABOLIC PANEL Routine 07/26/2025 9:48 AM EDT Graves' disease CBC WITH AUTO DIFFERENTIAL Routine 07/26/2025 9:48 AM EDT Graves' disease POCT GLYCATED HEMOGLOBIN, TOTAL Routine 07/10/2025 11:20 AM EDT Type II diabetes mellitus with complication (HCC) POCT GLUCOSE Routine 07/10/2025 11:19 AM EDT Type II diabetes mellitus with complication (HCC) POCT CAYLA-14 URINE DRUG SCREEN Routine 06/21/2025 9:38 AM EDT Long-term current use of opiate analgesic PANORAMIC RADIOGRAPHIC IMAGE Routine 02/09/2025 1:15 PM EDT LIPID PANEL, STANDARD Routine 12/08/2023 8:37 AM EDT Type II diabetes mellitus with complication (CMS/HCC) Hypertension, unspecified type BITEWINGS - 4 RADIOGRAPHIC IMAGES Routine 03/02/2023 9:30 AM EDT PERIODIC ORAL EVALUATION - ESTABLISHED PATIENT Routine 03/02/2023 9:30 AM EDT PROPHYLAXIS - ADULT Routine 12/24/2020 1 2:00 AM EDT from Last 3 Months or Most Recently Relevant to Health Maintenance Results * US Thyroid (09/13/2025 4:33 PM EST) Anatomical Region Laterality Modality Head, Neck Ultrasound 09/13/2025 4:33 PM EST Narrative 09/13/2025 4:53 PM EST [address] [address] Ultrasound Report Signed Patient: Calvin Clark MR#: [id number] : 1965 Acct:[id number] Age/Sex: 59 / M ADM Date: 09/13/25 Loc: HO.US Attending Dr: Paxton Goldstein MD Ordering Physician: Paxton Goldstein MD Date of Service: 09/13/25 Procedure(s): US thyroid Accession Number(s): [id number] cc: Angelita,Paxton GANT; Physician,Unknown Reason for Exam: hyperthyroidism EXAMINATION: US THYROID CLINICAL INFORMATION: Hyperthyroidism. COMPARISON: None available. TECHNIQUE: Linear transducer grayscale and color Doppler examination with attention to the region of the thyroid. FINDINGS: SIZE: Measurements of the thyroid lobes and nodules are given in sagittal, anteroposterior and transverse dimensions respectively. Right Thyroid Lobe: 5.0 x 2.3 x 2.4 cm, volume 14.4 mL. (Enlarged) Parenchyma: The gland echotexture is heterogeneous. Thyroid vascularity is increased. Left Thyroid Lobe: 4.7 x 2.5 x 2.1 cm, volume 13.0 mL. (Enlarged) Parenchyma: The gland echotexture is heterogeneous. Thyroid vascularity is increased. Isthmus: 0.4 cm in maximum AP dimension. There are no discrete thyroid nodules present. NODES: No lymphadenopathy is seen in the tissue surrounding the thyroid gland. US/US thyroid IMPRESSION: 1. Mildly enlarged, heterogeneous thyroid gland in keeping with thyroiditis. 2. There are no discrete nodules present. Electronically signed by: Low Antony MD 09/13/2025 04:50 PM EST Dictated By: Low Antony MD Signed By: <Electronically signed by Low Antony MD in OV> 09/13/25 1650 DD/ 1633 TD/TT: 09/13/25 1640 Entry Level Drafter: Procedure Note Donotuseinterpreter, Image - 09/13/[address] [address] Ultrasound Report Signed Patient: Calvin Clark AMR#: [id number] : 1965Acct:[id number] Age/Sex: 59 / MADM Date: 09/13/25 Loc: .US Attending Dr: Paxton Goldstein MD Ordering Physician: Paxton Goldstein MD Date of Service: 09/13/25 Procedure(s): US thyroid Accession Number(s): [id number] cc: Angelita,Paxton GANT; Physician,Unknown Reason for Exam: hyperthyroidism EXAMINATION: US THYROID CLINICAL INFORMATION: Hyperthyroidism. COMPARISON: None available. TECHNIQUE: Linear transducer grayscale and color Doppler examination with attention to the region of the thyroid. FINDINGS: SIZE: Measurements of the thyroid lobes and nodules are given in sagittal, anteroposterior and transverse dimensions respectively. Right Thyroid Lobe: 5.0 x 2.3 x 2.4 cm, volume 14.4 mL. (Enlarged) Parenchyma: The gland echotexture is heterogeneous. Thyroid vascularity is increased. Left Thyroid Lobe: 4.7 x 2.5 x 2.1 cm, volume 13.0 mL. (Enlarged) Parenchyma: The gland echotexture is heterogeneous. Thyroid vascularity is increased. Isthmus: 0.4 cm in maximum AP dimension. There are no discrete thyroid nodules present. NODES: No lymphadenopathy is seen in the tissue surrounding the thyroid gland. US/US thyroid IMPRESSION: 1. Mildly enlarged, heterogeneous thyroid gland in keeping with thyroiditis. 2. There are no discrete nodules present. Electronically signed by: Low Antony MD 09/13/2025 04:50 PM EST Dictated By: Low Antony MD Signed By: <Electronically signed by Low Antony MD in OV> 09/13/25 1650 DD/ 1633 TD/TT: 09/13/25 1640 Entry Level Drafter: Paxton Goldstein MD [facility] US PROCEDURES Final Result * (ABNORMAL) POCT CAYLA-14 Urine Drug Screen (08/16/2025 11:47 AM EST) Only the most recent of2 resultswithin the time period is included. THC Negative Negative Cocaine Screen, Urine Negative Negative Opiate Screen, Urine Negative Negative Methamphetamine Screen Urine Negative Negative Amphetamine Screen, Urine Negative Negative Benzodiazepines Screen, Urine Negative Negative Barbiturate Screen, Urine Negative Negative Methadone Screen, Urine Negative Negative Buprenophine Screen, Urine Negative Negative TCA, Urine Negative Negative MDMA Urine Negative Negative ng/mL Oxycodone Screen, Urine Positive(A) Negative Comment:RESPIRATORY DIRECTOR pt on Percocet Phencyclidine (PCP), Urine Negative Negative Propoxyphene, Urine Negative Negative Fentanyl, Urine Negative Negative Urine Urine specimen obtained by clean catch procedure / Unknown 08/16/2025 11:47 AM EST Nadira David RN - 08/16/2025 11:47 AM EST UTOX cup Lot#[id number] Exp. 08/27/26 Internal Pass Control us Paxton Goldstein MD POINT OF CARE TEST ENTER/EDIT OR DERABLES Final Result * (ABNORMAL) TSH W/Reflex to FT4 (07/26/2025 9:48 AM EDT) Pathologist [facility] TSH reflex Free T4 <0.01(L) 0.32 - 4.0 uIU/mL [facility] Blood Venous blood specimen / Unknown 07/26/2025 9:48 AM EDT 07/26/2025 11:24 AM EDT us Paxton Goldstein MD LAB BLOOD ORDERABLES Final Resul t [facility] [address] [place] [phone] * Albumin, Random Urine W/Creatinine (07/26/2025 9:48 AM EDT) Pathologist [facility] Creatinine, Urine 52.36 mg/dL [facility] Microalbumin Urine <5.0 mg/L H [facility] Microalbum Creatinine Ratio Ur TNP <30 ug/mg cr [facility] Comment:Unable to calculate albumin/creatinine ratio due to lowmicroalbumin or creatinine result. Urine (Urine, Random) 07/26/2025 9:48 AM EDT 07/26/2025 11:10 AM EDT us Paxton Name MD LAB URINE ORDERABLES Final Resul t [facility] [address] [place] [phone] * (ABNORMAL) CBC auto differential (07/26/2025 9:48 AM EDT) White Blood Count 4.9 4.8 - 10.8 X10*3/uL [facility] Red Blood Count 4.79 4.60 - 5.80 X10*6/uL [facility] Hemoglobin 13.9(L) 14.0 - 18.0 g/dl [facility] Hematocrit 43.6 42.0 - 52.0 % [facility] Mean Corpuscular Volume 91.0 80.0 - 98.0 fL [facility] Mean Corpuscular Hemoglobin 29.0 27.0 - 33.0 pg [facility] Mean Corpuscular HGB Conc 31.9 31.0 - 36.0 g/dl [facility] Red Cell Distribution Width 12.1 11.0 - 16.0 % [facility] Platelet Count 192 160 - 400 X10*3/uL [facility] Mean Platelet Volume 11.7 9.4 - 12.4 fL [facility] Neutrophils Percent Auto 49.7 45 - 73 % [facility] Imm Gran Pct Auto 0.2 0.0 - 0.4 % [facility] Lymphocytes Percent Auto 41.2(H) 20 - 40 % [facility] Monocytes Percent Auto 7.3 2 - 11 % [facility] Eosinophils Percent Auto 1.4 0 - 4 % [facility] Basophils Percent Auto 0.2 0 - 2 % [facility] NRBC Pct Auto 0.0 0.0 - 0.2 /100WBC [facility] Neutrophils Absolute Auto 2.4 2.0 - 8.3 x10*3/uL [facility] Imm Gran Abs Auto 0.01 0.00 - 0.03 X10*3/uL [facility] Lymphocytes Absolute Auto 2.0 1.2 - 4.9 X10*3/uL [facility] Monocytes Absolute Auto 0.4 0.1 - 1.2 X10*3/uL [facility] Eosinophils Absolute Auto 0.1 0.0 - 0.4 X10*3/uL [facility] Basophils Absolute Auto 0.0 0.0 - 0.2 X10*3/uL [facility] NRBC Abs Auto 0.000 0.0 - 0.012 X10*3/uL [facility] Blood Venous blood specimen / Unknown 07/26/2025 9:48 AM EDT 07/26/2025 11:24 AM EDT us Paxton Goldstein MD LAB BLOOD ORDERABLES Final Resul t Performing Organization Address City/[facility]/ZIP Co de Phone Number [facility] [address] [place] [phone] * (ABNORMAL) T4, Free (07/26/2025 9:48 AM EDT) Free T4 (Free Thyroxine) 2.27(H) 0.71 - 1.85 ng/dL [facility] 07/26/2025 9:48 AM EDT 07/26/2025 11:24 AM EDT us Paxton Goldstein MD LAB BLOOD ORDERABLES Final Resul t Performing Organization Address [facility]/ZIP Co de Phone Number [facility] [address] [place] [phone] * (ABNORMAL) Comprehensive Metabolic Panel (07/26/2025 9:48 AM EDT) Pathologist [facility] Sodium 142 135 - 145 mmol/L [facility] Potassium 3.6 3.3 - 5.1 mmol/L [facility] Chloride 108 96 - 108 mmol/L [facility] Carbon Dioxide 28 22 - 29 mmol/L [facility] Anion Gap 10(L) 12 - 20 [facility] Urea Nitrogen (BUN) 11 9 - 16 mg/dL [facility] Creatinine, Serum 0.52 0.5 - 1.4 mg/dL [facility] Estimated Glomerular Filt Rate >60 [facility] Comment:Chronic Kidney Disea se: Estimated GFR < 60 mL/min/[id number] Kidney Disease: Estimated GFR < 15 mL/min/1.73m2 Glucose 151(H) 60 - 115 mg/dL [facility] Calcium 9.3 8.4 - 10.2 mg/dL [facility] Bilirubin, Total 0.6 0.0 - 1.0 mg/dL [facility] Aspartate Amino Transferase 29 5 - 37 U/L [facility] Alanine Aminotransferase 31 0 - 40 U/L [facility] Total Protein 7.2 6.5 - 8.0 g/dL [facility] Albumin Level 4.4 3.5 - 5.0 g/dL [facility] Alkaline Phosphatase 164(H) 39 - 117 U/L [facility] Blood Venous blood specimen / Unknown 07/26/2025 9:48 AM EDT 07/26/2025 11:24 AM EDT us Paxton Goldstein MD LAB BLOOD ORDERABLES Final Resul t [facility] [address] [place] [phone] * (ABNORMAL) POCT Hgb A1c (07/10/2025 11:20 AM EDT) Hemoglobin A1C 5.1 4.0 - 5.7 % [employer] Lot # [id number] Lot# Expiration Date [id number] Blood 07/10/2025 11:2 0 AM EDT us Paxton Goldstein MD POINT OF CARE TEST ENTER/EDIT OR DERABLES Final Result * POCT Glucose (07/10/2025 11:19 AM EDT) Glucose Blood, POC 113 60 - 200 mg/dL [employer] Lot # [id number] Lot# Expiration Date Blood Capillary blood specimen / Unknown 07/10/2025 11:19 AM EDT us Paxton Goldstein MD POINT OF CARE TEST ENTER/EDIT OR DERABLES Final Result * (ABNORMAL) Lipid Panel, Standard (12/08/2023 8:37 AM EDT) Triglycerides 103 <150 mg/dL [facility] Comment:Desirable Triglyceri de: less than 150 mg/dLBorderline High Triglyceride 150-199 mg/dLHigh Triglyceride: 200-499 mg/dLVery High Triglyceride: greater than or equal to 5OO mg/dL Cholesterol 141 <200 mg/dL [facility] Comment:Desirable Cholestero l: less than 200 mg/dLBorderline High Cholesterol: 200-239 mg/dLHigh Cholesterol: greater than 239 mg/dL LDL Cholesterol Calculated 83 <100 mg/dL [facility] Comment:Desirable LDL: less than 100 mg/dLNear Optimal/Above Optimal LDL: 110- 129 mg/dLBorderline High LDL: 130-159 mg/dLHigh LDL: 160-189 mg/dLVery High LDL: greater than or equal to 190 mg/dL HDL Cholesterol 38(L) >40 mg/dL [facility] Comment:Desirable HDL: great er than 40 mg/dL Note: This HDL assay may give artificially low results in patients with liver disease. Blood Venous blood specimen / Unknown 12/08/2023 8:37 AM EDT 12/08/2023 11:16 AM EDT us Paxton Goldstein MD LAB BLOOD ORDERABLES Final Resul t [facility] [address] [place] [phone] from Last 3 Months or Most Recently Relevant to Health Maintenance Insurance [address] [place] [address] STANDARD MEDICARE DENTAL-[facility] MEDICAID STAND ADULT Care Teams Yacht Rigger Relationship Specialty Start Date End Date Name, MD Paxton [address] [place] [phone] PCP - General Family Medicine 04/08/16 Kathe Soriano PharmD [address] [place] [phone] Pharmacist Internal Medicine 06/15/22
--- OUTSIDE RECORDS SUMMARY | 2025-09-13 19:43 | XMS_ITS | Encounter Summary ---
Author Organization [employer] Address [address] [facility] [address] [place] [address] Care Team Providers Care Blemish Remover Name Role Phone Name, Paxton GANT Primary Care Provider Kathe Soriano PharmD Unavailable [phone] Reason for Visit * Reason Comments Med Refill Encounter Details Date Type Department Care Team ([facility] st Contact Info) Description 02/29/2024 Refill [facility] [address] [place], [place] [phone] Name, MD Paxton [address] [place] [address] Peroneal neuropathy, unspecified laterality Social History Tobacco [...] Description 10/02/2025 9:00 AM EST Clinical Support [facility] [address] [place] [address] Nadira Singleton, BALJINDER documented as of this [...] documented as of this encounter Care Teams Blemish Remover Relationship Specialty Start Date End Date Name, MD Paxton [address] [place] [address] PCP - General Family Medicine 04/08/16 Puia, Kathe, PharmD [address] [place] [address] Pharmacist Internal Medicine 06/15/22 documented as of this encounter
--- OUTSIDE RECORDS SUMMARY | 2025-09-13 19:43 | XMS_ITS | Encounter Summary ---
Author Organization [employer] Address [address] [facility] 7t [place] [address] Care Team Providers Care Ribbon Blocker Name Role Phone Name, Paxton GANT Primary Care Provider [phone] Kathe Soriano PharmD Unavailable [phone] Reason for Visit * Reason Comments Med Refill Encounter Details Date Type Department Care Team ([facility] st Contact Info) Description 03/20/2025 Refill [facility] CHC MED & PEDS [address] [place], [place] [phone] Name, MD Paxton [address] [place] [address] Neuropathic pain, leg, bilateral Social History Tobacco [...] Description 10/02/2025 9:00 AM EST Clinical Support [facility] MEDICINE [address] [place] [address] Nadira Singleton, RN documented as of this [...] documented as of this encounter Care Teams Ribbon Blocker Relationship Specialty Start Date End Date Name, MD Paxton [address] [place] [address] PCP - General Family Medicine 04/08/16 Kathe Soriano, RimaD [address] [place] [address] [place] [address] Pharmacist Internal Medicine 06/15/22 documented as of this encounter
--- OUTSIDE RECORDS SUMMARY | 2025-09-13 19:43 | XMS_ITS | Encounter Summary ---
Author Organization [employer] Address [address] [facility] 7t [place] [address] Care Team Providers Care Associate Professor Of Art History Name Role Phone Name, Paxton GANT Primary Care Provider [phone] Kathe Soraino PharmD Unavailable [phone] Reason for Visit * Reason Onset Date Comments more swollen and more pain than before Encounter Details Date Type Department Care Team (Late st Contact Info) Description 02/09/2025 Telephone [facility] ADULT DENTAL [address] [place] [address] Najera-DumontBarrieShaylee, DDS [address] [place], [place] [phone] more swollen and more pain than before [...] Description 10/02/2025 9:00 AM EST Clinical Support [facility] MEDICINE [address] [place] [address] [phone] Nadira Singleton, BALJINDER documented as of this encounter Goals Goal Patient Goal Type Associated Problems Recent Progress Patient-Stated? Author Blood Pressure < 140/90 Blood Pressure 152/78(2024 11:19 AM EDT) No Puia, Kathe, PharmD Hemoglobin A1c < 7 Result Component 5.1( 11:20 AM EDT) No Puia, Akthe, PharmD documented as of this encounter Visit Diagnoses Not on filedocumented in this encounter Additional Health Concerns Assessment Noted Time PHQ-9 Depression Total Score: 0 12/07/19 24 10:36 AM EDT documented as of this encounter Care Teams Associate Professor Of Art History Relationship Specialty Start Date End Date Name, MD Paxton [address] [place] [address] PCP - General Family Medicine 04/08/16 Kathe Soriano, PharmD [address] [place] [address] Pharmacist Internal Medicine 06/15/22 documented as of this encounter
--- OUTSIDE RECORDS SUMMARY | 2025-09-13 19:43 | XMS_ITS | Encounter Summary ---
Author Organization [employer] Address 75 [facility] 7t [place] [address] Care Team Providers Care Supervisor Plating And Point Assembly Name Role Phone Name, Paxton GANT Primary Care Provider [phone] Kathe Soriano PharmD Unavailable [phone] Reason for Visit * Reason Comments Med Refill Encounter Details Date Type Department Care Team ([facility] st Contact Info) Description 09/11/2025 Refill [facility] MEDICINE [address] [place], [place] [phone] Comfort Carrillo NP [address] [place], [place] [phone] Allergic rhinitis, unspecified seasonality, unspecified trigger Social History Tobacco Use Types Packs/Day Years [...] Description 10/02/2025 9:00 AM EST Clinical Support [facility] MEDICINE [address] [place] [address] Nadira Singleton, RN documented as of this encounter Goals Goal Patient Goal Type Associated Problems Recent Progress Patient-Stated? Author Blood Pressure < 140/90 Blood Pressure 152/78(2024 11:19 AM EDT) No Puia, Kathe, PharmD Hemoglobin A1c < 7 Result Component 5.1( 11:20 AM EDT) No Puia, Kathe, PharmD documented as of this encounter Visit Diagnoses Diagnosis Allergic rhinitis, unspecified seasonality, unspecified trigger documented in this encounter Additional Health Concerns Assessment Noted Time PHQ-9 Depression Total Score: 0 12/07/19 24 10:36 AM EDT documented as of this encounter Care Teams Supervisor Plating And Point Assembly Relationship Specialty Start Date End Date Name, MD Paxton [address] [place] [address] PCP - General Family Medicine 04/08/16 Kathe Soriano PharmD [address] [place] [address] Pharmacist Internal Medicine 06/15/22 documented as of this encounter
--- OUTSIDE RECORDS SUMMARY | 2025-09-13 19:43 | XMS_ITS | Encounter Summary ---
Author Organization [employer] Address 75 [facility] 7t [place] [address] Care Team Providers Care Buffing Wheel Inspector Name Role Phone NamePaxton MD Primary Care Provider [phone] Kathe Soriano PharmD Unavailable [phone] Reason for Visit * Reason Comments Med Refill Encounter Details Date Type Department Care Team (Late st Contact Info) Description 05/09/2025 Refill [facility] MEDICINE [address] [place], [place] [phone] Name, MD Paxton [address] [place], [place] [phone] Peroneal neuropathy, unspecified laterality Social History Tobacco [...] Description 10/02/2025 9:00 AM EST Clinical Support [facility] MEDICINE [address] [place] [address] Nadira Singleton, BALJINDER documented as of this [...] documented as of this encounter Care Teams Buffing Wheel Inspector Relationship Specialty Start Date End Date Name, MD Paxton [address] [place] [address] PCP - General Family Medicine 04/08/16 Kathe Soriano, RimaD [address] [place] [address] Pharmacist Internal Medicine 06/15/22 documented as of this encounter
--- OUTSIDE RECORDS SUMMARY | 2025-09-13 19:43 | XMS_ITS | Continuity of Care Document ---
Author Organization [facility] Address [address] [facility] [address] [place] [address] Phone [phone] Social History Type Date Description Comments Sex Male Sex Unknown Procedures Date Code Description Status 08/14/2025 NSHOWOFF No Show Office Visit Complet ed Medical Devices Description No Information Available Encounters Description No Information Available Assessments Description No Information Available Plan of Treatment No Information Available Functional Status Description No Information Available Mental Status Description No Information Available Referrals Description No Information Available
--- OUTSIDE RECORDS SUMMARY | 2025-09-13 19:43 | XMS_ITS | Encounter Summary ---
Author Organization [employer] Address 75 [facility] 7t [place] [address] Care Team Providers Care Surgical Coder Name Role Phone Name, Paxton GANT Primary Care Provider [phone] Kathe Soriano PharmD Unavailable [phone] Encounter Details Date Type Department Care Team (Latest Contact Info) Description 12/24/2020 Abstract [facility] Dental, Provider, DDS Social History Tobacco [...] Description 10/02/2025 9:00 AM EST Clinical Support [facility] MEDICINE [address] [place] [address] Nadira Singleton, BALJINDER documented as of this encounter Visit Diagnoses Not on filedocumented in this encounter Care Teams Surgical Coder Relationship Specialty Start Date End Date Name, MD Paxton [address] [place] [address] PCP - General Family Medicine 04/08/16 Kathe Soriano, PharmD [address] [place] [address] Pharmacist Internal Medicine 06/15/22 documented as of this encounter
--- OUTSIDE RECORDS SUMMARY | 2025-09-13 19:43 | XMS_ITS | Encounter Summary ---
Author Organization [employer] Address [address] [facility] 7t [place] [address] Care Team Providers Care Yarding Engineer Name Role Phone NamePaxton MD Primary Care Provider [phone] Kathe Soriano PharmD Unavailable [phone] Reason for Visit * Reason Comments Med Refill Encounter Details Date Type Department Care Team (Late st Contact Info) Description 06/07/2024 Refill [facility] MEDICINE [address] [place], [place] [phone] Name, MD Paxton [address] [place] [address] Neuropathic pain, leg, bilateral Social History Tobacco [...] the past 12 months, has t he [employer] oil or [employer] company threatened to [...] Description 10/02/2025 9:00 AM EST Clinical Support [facility] MEDICINE [address] [place] [address] Nadira Singleton RN documented as of this [...] documented as of this encounter Care Teams Yarding Engineer Relationship Specialty Start Date End Date Name, MD Paxton [address] [place] [address] PCP - General Family Medicine 04/08/16 Puia, Kathe, PharmD [address] [place] [address] Pharmacist Internal Medicine 06/15/22 documented as of this encounter
--- OUTSIDE RECORDS SUMMARY | 2025-09-13 19:43 | XMS_ITS | Encounter Summary ---
Author Organization [employer] Address 75 [facility] 7t [place] [address] Care Team Providers Care Disease And Insect Control Boss Name Role Phone Name, Paxton GANT Primary Care Provider [phone] Kathe Soriano PharmD Unavailable [phone] Reason for Visit * Reason Onset Date Comments Med Refill PCP no longer prescribing Percocet 11/04/2022 Reminded pt of our previous conversation 10/28/22 about being weaned off Percocet. See note Encounter Details Date Type Department Care Team (Late st Contact Info) Description 11/04/2022 Telephone [facility] MEDICINE [address] [place] [address] Name, MD Paxton [address] [place], [place] [phone] Med Refill; PCP no longer prescribing Percocet [...] 11/04/2022 8:35 AM EST TC via PI# [id number], pt called asking for refill of Percocet [...] 9:00 AM EST Clinical Support [facility] MEDICINE [address] [place] [address] Nadira Singleton, RN documented as of this encounter Visit Diagnoses Diagnosis Chronic low back pain, unspecified back pain laterality, unspecified whether sciatica present documented in this encounter Additional Health Concerns Assessment Noted Time PHQ-9 Depression Total Score: 0 09/09/20 22 10:25 AM EST documented as of this encounter Care Teams Disease And Insect Control Boss Relationship Specialty Start Date End Date Name, MD Paxton [address] [place] [address] PCP - General Family Medicine 04/08/16 Kathe Soriano PharmD [address] [place] [address] Pharmacist Internal Medicine 06/15/22 documented as of this encounter
--- OUTSIDE RECORDS SUMMARY | 2025-09-13 19:43 | XMS_ITS | Encounter Summary ---
Author Organization [employer] Address [address] [facility] [address]t h Floor [place] [id number] Care Team Providers Care Boat Finisher Name Role Phone Name, Paxton GANT Primary Care Provider [phone] Kathe Soriano PharmD Unavailable Encounter Details Date Type Department Care Team (Late st Contact Info) Description 09/22/2022 Orders Only [facility] MEDICINE [address] [place] [address] Kathe Soriano, PharmD [address] [place] [address] Social History Tobacco Use Types Packs/Day Years [...] Department Care Team (Late Contact Info) Description 10/02/2025 9:00 AM EST Clinical Support [facility] MEDICINE [address] [place] [phone] Nadira Singleton, RN documented as of this encounter Visit Diagnoses Not on filedocumented in this encounter Additional Health Concerns Assessment Noted Time PHQ-9 Depression Total Score: 0 09/09/20 10:25 AM EST documented as of this encounter Care Teams Boat Finisher Relationship Specialty Start Date End Date Name, MD Paxton [address] [place] [address] PCP - General Family Medicine 04/08/16 Kathe Soriano PharmD [address] [place] [address] Pharmacist Internal Medicine 06/15/22 documented as of this encounter
--- OUTSIDE RECORDS SUMMARY | 2025-09-13 19:43 | XMS_ITS | Clinical Summary ---
Author Organization [employer] Address [address] [place] [address] Care Team Providers Care Chamber Magistrate Name Role Phone Adan Welch MD Primary [...] on file Sexual Orientation Not on file Plan of Treatment Health Maintenance Due Date [...] 09/09/2022 Depression Screening 09/27/2024 COVID-19 Vaccine ( - season) 2025 Influenza Vaccine (#1) 2025 5, [...] age to complete this topic Care Teams Chamber Magistrate Relationship Specialty Start Date End Date Adan Welch MD [address] [place] [address] PCP - General Internal Medicine 12/09/15
== END 2025-09-13 16:28 | disposition home or self-care (01) ==
LOC: HO.US 16:27
PROVIDERS: Visit Provider Internal Medicine Geriatric Medicine
DX: E05.00 Thyrotoxicosis with diffuse goiter without thyrotoxic crisis or storm (principal)
CPT/HCPCS: 76536

== ENCOUNTER → 2025-09-13 16:29 | Outpatient (BNV) | payer MEDICARE, MEDICAID, SELFPAY | PROVIDERS: Visit Provider Radiology Diagnostic Radiology | DX: E05.90 Thyrotoxicosis, unspecified without thyrotoxic crisis or storm (principal) | CPT/HCPCS: 76536 ==